=== PATIENT | female | born 1970 | race African-American/Black ===

== ENCOUNTER 2016-12-23 10:06 | Observation (INO) ==
--- NOTE | 2016-12-23 10:55 | Diag Imaging Result Doc PS360 ---
EXAM: ABDOMEN FLAT/UPRIGHT HISTORY: abd pain, SBO TECHNIQUE: Three views COMPARISON: None. FINDINGS: No bowel obstruction. No organomegaly. No abnormal abdominal calcifications. There is a left pelvic calcifications believed to be a phlebolith. Mild to moderate degenerative bone spurring in the lumbar spine. IMPRESSION: No acute abnormality. Electronically signed by Willie Boyd 12/23/2016 10:52 AM
[2016-12-23 11:27] LABS: URINE CULTURE NEEDED? NO; URINE MICRO REVIEW NEEDED? NO; URINE SOURCE CLEAN CATCH
[2016-12-23 11:27] LABS: MANUAL DIFF NEEDED? NO
[2016-12-23 11:31] LABS: BASO% 0.3 % (0.0-0.8); EOS# 0.09 X1000 (0.0-0.7); EOS% 0.9 % (0.0-10.0); HEMATOCRIT 35.4 % (37.0-47.0); HEMOGLOBIN 11.3 g/dL (12.0-16.0); IMM GRAN# 0.03 X1000 (0.0-0.04); IMM GRAN% 0.3 % (0.0-0.5); LYMPH# 1.51 X1000 (1.2-3.4); LYMPH% 15.3 % (20.5-51.1); MCH 28.9 PG (27-31); MCHC 31.9 g/dL (33-37); MCV 90.5 FL (81-99); MONO# 0.86 X1000 (0.11-0.59); MONO% 8.7 % (1.7-9.3); NEUT% 74.5 % (42.2-75.2); PLT 406 X1000 (130-400); RBC 3.91 XMIL (4.2-5.4)
[2016-12-23 11:32] LABS: BILIRUBIN URINE NEGATIVE (NEGATIVE); BLOOD URINE SMALL (NEGATIVE); COLOR YELLOW; GLUCOSE URINE NEGATIVE (NEGATIVE); LEUKOCYTES URINE NEGATIVE (NEGATIVE); NITRITE URINE NEGATIVE (NEGATIVE); PROTEIN URINE NEGATIVE (NEGATIVE); SP GRAVITY URINE 1.004; TURBIDITY URINE CLEAR (CLEAR); UR EPITHELIAL CELLS <10 /HPF (<10); URINE BACTERIA NEGATIVE /HPF; URINE RBC <10 /HPF (<10); URINE WBC <10 /HPF (<10); UROBILINOGEN URINE NORMAL (NORMAL)
[2016-12-23 12:03] LABS: ALBUMIN 3.5 g/dL (3.5-5.0); CALCIUM 9.2 mg/dL (8.8-10.2); POTASSIUM 4.6 mmol/L (3.5-5.1); TOTAL BILIRUBIN 0.59 mg/dL (0.20-1.00); TOTAL PROTEIN 8.1 g/dL (6.3-8.3)
[2016-12-23] MEDS ORDERED: ZOFRAN IV PRN (12:44)
[2016-12-23] MEDS ORDERED: ZOFRAN PO PRN (12:44)
[2016-12-23] MEDS ORDERED: MORPHINE IV PRN (12:44)
[2016-12-23] MEDS ORDERED: D5 1/2 NS 1,000 ML IV SCH (13:00)
[2016-12-23] MEDS ORDERED: GOLYTELY PO ONE (14:00)
--- NOTE | 2016-12-23 14:07 | CONSULTATION ---
DATE OF CONSULTATION: 12/23/2016 HISTORY AND REASON FOR CONSULTATION: Evaluation of this patient with history of colon cancer, severe constipation, abdominal pain, and rectal bleeding. HISTORY OF PRESENT ILLNESS: This is a 46-year-old lady who was found to have colon cancer in October 2014. At that time, she had a sigmoid colectomy done by Dr. Portillo. She also has undergone chemotherapy after the resection because the cancer had spread. This was done by [facility] and the patient had been doing okay after the chemotherapy and surgery. She had a negative colonoscopy done on 07/30/2015. The anastomosis was clear. There was no evidence of any polyp. She was on a schedule of every 2 years colonoscopy; however, about 2 weeks ago she came to the office and said that she has increasing constipation for several months. She also had some left lower quadrant pain and blood in stools. This concerned her, so I scheduled for a colonoscopy for next ; however, since she saw me, she had taken different laxatives to get a bowel movement, which included magnesium citrate, and she could not have a bowel movement. She was drinking liquid diet, but since she did not have a bowel movement, she got really concerned. She continued to have abdominal pain and intermittent rectal bleeding. She then came to the ER and she was evaluated by Dr. Portillo, and she was admitted for further evaluation and management. PAST MEDICAL HISTORY: 1. Patient has a history of morbid obesity. 2. History of colon cancer. ALLERGIES: No known drug allergies. FAMILY HISTORY: There is no history of any colon cancer in the family. She is the only sibling for her family. REVIEW OF SYSTEMS: The appetite has been fair. There is no nausea or vomiting. No difficulty in swallowing. Abdominal pain is mainly in the left and right lower quadrant. Has severe constipation present for about 2 weeks. PHYSICAL EXAMINATION: General: The patient is alert and oriented x3. Vital Signs: The temperature is 98.3 degrees, pulse rate is 85, respiratory rate is 20, blood pressure is 117/78. Weight is 347 and height is 5 feet 2 inches. She is morbidly obese. Skin: Warm and dry. Mucous membranes are moist. Neck: Supple. There is no thyromegaly. Cardiac: Both heart sounds are heard. Rhythm is regular. No murmur. Lungs: Revealed normal breath sounds. A few crackles in the bases. Abdomen: Protuberant. Scar of previous surgery present. No masses felt. There is slight tenderness in the lower abdomen present. Bowel sounds are normally heard. LABORATORY DATA: WBC count is 9.86, hemoglobin 11.3, hematocrit 35.4, and the platelet count is 406,000. Sodium is 142, potassium 4.6, chloride 100, CO2 is 20, BUN is 8, creatinine 1.3. ALT 17, AST is 6, albumin is 3.5, amylase 30, and lipase 11. CEA is 26.8. The UA is negative. Abdominal x-rays, stool only, no obstruction. CT scan is pending. IMPRESSIONS: 1. Severe constipation. 2. Left and right lower quadrant pain. 3. History of colon cancer. RECOMMENDATION: Colonoscopy. I have explained the procedure of colonoscopy, with benefits and risks, in particular the risk of perforation, hemorrhage, and infection. Patient agreed for it. We will proceed with it. I also explained to the patient about monitored anesthesia care. She agreed for it. cc: MD Carlos Steele MD Hugh C. Nabers, MD Mary Odofin MD MTDD
--- NOTE | 2016-12-23 15:13 | Diag Imaging Result Doc PS360 ---
ABDOMEN/PELVIS W/WO CONTRAST - 12/23/2016 INDICATION: ABD PAIN, CONSTIPATION, HX COLON CA TECHNIQUE: A CT dose reduction protocol was used. COMPARISON: 10/16/2014 FINDINGS: On the noncontrast exam, there are no abnormal calcifications. On the contrast enhanced exam, there is a large heterogeneously enhancing mass arising from the fundus of the uterus. This measures about 12.7 x 15 x 15 cm in AP, lateral, and craniocaudal dimensions. There is moderate to severe bilateral hydronephrosis and hydroureter, left greater than right. Presumably this is secondary to obstruction from this large mass. The lung bases are clear and the heart size is normal. Urinary bladder severely displaced anteriorly and superiorly. No bowel obstruction or inflammation. Abdominal organs are all normal. There are a couple of small nodules in the omentum, on both sides of the abdomen. Otherwise, no adenopathy. There are moderate degenerative changes of the spine. No acute or suspicious bony lesion. IMPRESSION: 1. Large diffuse uterine mass that was not present previously. This causes secondary bilateral hydroureteronephrosis left greater than right. The large size and rapid growth is very concerning for a leiomyosarcoma. 2. Small nodular implants in the omentum. This is also concerning. 3. Findings were immediately called to the patient's surgeon. Electronically signed by Mp Pak 12/23/2016 3:11 PM
[2016-12-23] MEDS ORDERED: FLEET ENEMA PR ONE (21:00)
[2016-12-24] MEDS ORDERED: XYLOCAINE-MPF 2% ONE (07:10)
[2016-12-24] MEDS ORDERED: ROBINUL ONE (07:10)
[2016-12-24] MEDS ORDERED: ZOFRAN ONE (07:10)
[2016-12-24] MEDS ORDERED: DIPRIVAN 1% ONE ×2 (07:11→07:12)
[2016-12-24] MEDS ORDERED: FENTANYL ONE (07:14)
[2016-12-24 12:35] VITALS: BP 154/86
--- NOTE | 2016-12-24 13:27 | OPERATIVE NOTE ---
PROCEDURE DATE: 12/24/2016 PROCEDURE: Colonoscopy. HISTORY AND REASON FOR PROCEDURE: This patient is admitted with abdominal pain and severe constipation and some rectal bleeding. Medications were all given by anesthesiologist. Patient was monitored before, during, and after the procedure by them, and her condition remains stable. PHOTOS TAKEN: None. SPECIMEN: None. PROCEDURE IN DETAIL: The patient was kept in the left lateral decubitus position. Rectal examination was performed. The anal canal lubricated. The Olympus video scope was introduced in the rectum and advanced to the cecum. The patient tolerated the procedure well and bowel preparation was fairly good. There was some stool present, which was aspirated and removed and washed off. FINDINGS: The rectum appeared normal without any lesions. Sigmoid was absent. The anastomosis between the rectosigmoid and transverse colon appeared to be wide open with no evidence of any recurrence of any tumor. The transverse colon appeared to be normal with no lesions. The hepatic flexure was normal. Ascending colon was normal. Cecum was identified by the presence of ileocecal valve. There were no lesions present. Air was taken out from the patient's colon and scope was removed from the patient. IMPRESSION: Sigmoid colectomy, otherwise negative colon. RECOMMENDATION: The patient CT scan showed a large mass arising from the uterus. Her CEA is also elevated. She may be having a large tumor in the uterus which could be malignancy. Dr. Portillo was in attendance when I was doing the procedure; he is aware of the patient's negative colonoscopy; he is planning to make arrangement for the patient to be seen by [facility] oncologist, either in [place] or in [facility]. She could be discharged home today. cc: MD Carlos Steele MD Olaoluwa M. Odofin
[2016-12-24] MEDS ORDERED: HEPARIN ONE (13:36)
--- NOTE | 2016-12-26 14:46 | HISTORY AND PHYSICAL ---
DIAGNOSIS: 1. Lower abdominal pain 2. History of colon cancer. PROCEDURE PLANNED: Admission observation. CT scan of the abdomen and pelvis with consultation to Dr. Quiros for colonoscopy tomorrow. HISTORY OF PRESENT ILLNESS: The patient is a 46-year-old black female, known to me from previous colon resection 2-3 years ago for a large bulky tumor in the sigmoid. She had postoperative chemotherapy, had done relatively well since that time. Dr. Quiros scoped the patient approximately a year ago revealing a widely patent anastomosis with no evidence of recurrent tumor. She has been having rectal bleeding recently. PAST HISTORY: Otherwise negative. PHYSICAL EXAMINATION: GENERAL: Physical exam reveals a morbidly obese black female in moderate discomfort. HEAD/NECK EXAM: She is normocephalic, atraumatic. Pupils equal and reactive. Ear, nose, and throat is negative. BREAST AND AXILLARY: Negative. ABDOMEN: Is protuberant with well-healed midline incision. : Negative. NEUROLOGICALLY: Intact. IMPRESSION: Rectal bleeding with history of colon cancer. PLAN: Admission observation with a colonoscopy tomorrow. CT scan reveals a large bulky uterus with possible omental involvement. CEA is elevated at 26. There is a possibility of a primary carcinoma of the uterus and possible omental metastases from the colon cancer. She will have the colonoscopy tomorrow and then be referred for [facility] evaluation for hysterectomy and omentectomy. cc: Raghu Portillo MD
--- NOTE | 2016-12-26 22:51 | PROVIDER DOCUMENTATION ---
This chart was entered by Deonna Gustafson Scribe, acting as scribe for Yariel Wilde MD. HPI-Abdominal Pain/GI Problem - General Chief Complaint: Abdominal Pain Stated Complaint: ABD PAIN,CONSTIPATED Time Seen by Provider: 12/23/16 10:23 Source: patient Allergies/Adverse Reactions: Patient Allergies Allergy/AdvReac Type Severity Reaction Status Date / Time No Known Allergies Allergy Verified 07/28/15 08:27 Home Medications: Home Medication List Medication Instructions Recorded Confirmed Last Taken Type Multivit,Fe,Ca,FA & Min [Thera M 1 each PO DAILY #100 tablet 10/30/14 07/30/15 06/30/15 Rx Plus] 1 Cholecalciferol (Vitamin D3) 2,000 unit PO DAILY 07/28/15 07/30/15 06/30/15 History [Vitamin D] 2000 Warfarin [Coumadin] mg PO QHS 07/28/15 07/28/15 07/07/15 History - History of Present Illness-ABD Nature of Presenting Problems: Pt is 46 y/o F presents to the ED with generalized abdominal pain. Pt states pain has been present for one week. Pt denies having a normal BM in one week. Pt states drinking mag citrate and at home enema. Pt states hx of colon resection due to blockage. Pt states hx of colon cancer. Pt denies taking pain meds. Pt states she is passing some gas. Pt denies SOB, back pain or chest pain. Abdominal Pain Onset Location: reports: generalized abdomen Pain Radiation: reports: no radiation Quality of Pain: reports: aching Severity in ED: reports: moderate Onset/Duration: reports: 1 week ago Timing: reports: still present, getting worse Activities at Onset: reports: light activity Exposure to sick contacts?: No Modifying Factors: improves with: nothing Associated Symptoms: reports: headaches. denies: anxiety, arm pain, back/neck pain, chest pain, constipation, cough, diaphoresis, diarrhea, dizziness, EENT symptoms, fatigue, fever/chills, genitourinary problems, heartburn, joint pain, loss of appetite, malaise, muscle aches, sinus congestion/drainage, nausea, rash , seizure, shortness of breath, sensory/motor loss, pain with inspiration, swelling/mass in abdomen, syncope, vomiting, weakness, trouble walking Last BM: 1 week ago Dark Stools Present?: reports: none noticed Rectal Bleeding: reports: none Rectal Pain: reports: none Emesis Description: reports: none Bruising or Bleeding Gums?: No Similar Symptoms Previously?: Yes Recently seen or treated by another doctor?: No Review of Systems - Adult - REVIEW OF SYSTEMS - ADULT Constitutional: reports: no symptoms reported Eyes: reports: no symptoms reported Ears, Nose, Mouth & Throat: reports: no symptoms reported Cardiovascular: reports: no symptoms reported Respiratory: reports: no symptoms reported Gastrointestinal: reports: abdominal pain, constipation. denies: diarrhea, nausea, poor appetite, rectal bleeding, vomiting Genitourinary: reports: no symptoms reported Musculoskeletal: reports: no symptoms reported Integumentary: reports: no symptoms reported Neurological: reports: no symptoms reported Psychiatric: reports: no symptoms reported Endocrine: reports: no symptoms reported Hematologic/Lymphatic: reports: no symptoms reported Allergic/Immunologic: reports: no symptoms reported All Other Systems: Reviewed and Negative Past History - Adult - PAST MEDICAL HISTORY-ADULT Review of Records: reports: Nursing Assessment Review, Medications Reviewed, Social history reviewed & non-contributory. Major Childhood Illnesses: reports: denies history Cardiovascular: reports: HTN Respiratory: reports: denies history Gastrointestinal: reports: cancer (colon) Obstetrical/Gynecological: reports: denies history Genitourinary: reports: denies history Musculoskeletal: reports: denies history Neurological: reports: denies history Endocrine/Immune: reports: denies history Other Conditions: reports: denies history - PRIOR SURGERIES/PROCEDURES Surgical/Procedure History: reports: other (colon resection) - IMMUNIZATION STATUS Childhood Immunizations: See Nurse Assessment Flu Vaccine: See Nurse Assessment - FAMILY HISTORY Family History: reviewed, not pertinent - SOCIAL HISTORY Smoking: denies Substance Use: alcohol Alcohol Use Frequency: occasionally Number of drinks per typical drinking period:: 2 drinks Living Situation: family Physical Exam-General - PHYSICAL EXAM-ADULT Initial Vital Signs Reviewed: Yes - CONSTITUTIONAL General Appearance: appears well, alert, mild distress - EYES Eyes: PERRL/EOMI, pink conjunctivae - HEAD, EARS, NOSE, MOUTH & THROAT HENMT: normocephalic/atraumatic, moist mucous membranes, normal ENT inspection - NECK Neck: non-tender, full range of motion, supple, normal inspection - RESPIRATORY Respiratory: chest non-tender, lungs clear, normal breath sounds - CARDIOVASCULAR Cardiovascular: normal peripheral pulses, tachycardia - GASTROINTESTINAL (ABDOMEN) Abdominal Exam: soft, abnormal bowel sounds (no bowel sounds), tenderness ( generalized). negative: normal bowel sounds - LYMPHATIC Lymphatic: no adenopathy - MUSCULOSKELETAL Back Exam: normal inspection, no CVA tenderness, no vertebral tenderness Extremity: normal range of motion, non-tender, normal inspection, swelling (1 + pitting edema bilateral) - SKIN Integumentary: normal color, normal turgor, warm/dry - NEUROLOGIC Neurologic: grossly normal - PSYCHIATRIC Psych/Mental Status: normal mood/affect, oriented x 3 Progress - PLAN OF CARE/RESULTS Progress/Plan/Lab Results: Vital Signs - 8 hr 12/23/16 10:12 Temperature 98.6 F Pulse Rate 122 H Respiratory Rate 20 Blood Pressure 154/95 O2 Sat by Pulse Oximetry 100 Orders Category Date Time Status Saline Loc DIRECTED Care 12/23/16 10:31 Active NPO Diet 12/23/16 10:31 Active ABDOMEN FLAT/UPRIGHT [RAD] Stat Exams 12/23/16 10:31 Ordered AMYLASE [CHEM] Stat Lab 12/23/16 10:31 Uncollected CBC WITH ELECTRONIC DIFF [HEME] Stat Lab 12/23/16 10:31 Uncollected COMPREHENSIVE METABOLIC PANEL [CHEM] Stat Lab 12/23/16 10:31 Uncollected LIPASE [CHEM] Stat Lab 12/23/16 10:31 Uncollected URINALYSIS W/POSS RFLX CULT-1 [URINALYSIS] Stat Lab 12/23/16 10:[address] Portillo came by and said he was going to put her in and scan her. Asked for CEA. - XRAY 1 XRAY Study: Abdomen Impression: Normal XRAY Interpretation: no acute abnormality - CONSULTS/PCP/HOSPITALIST Notification #1 *Consult/PCP/Hospitalist*: Bandar Time Discussed: 11:13 Consult Disposition: Admit Departure - Departure Date of Disposition Decision: 12/23/16 Time of Disposition Decision: 11:14 DIAGNOSIS: Personal history of colon cancer Abdominal pain Qualifiers: Abdominal location: generalized Qualified Code(s): R10.84 - Generalized abdominal pain Disposition: ADMITTED INPATIENT 09 Certified Medical Emergency: Emergent Condition: Stable Referrals and Follow-Ups: SHAY AUGUSTIN [Primary Care Provider] - - Critical Care Note This patient required my direct & personal management of CC.: No This chart was documented by the indicated scribe, (Deonna Gustafson Scribe) and accurately reflects the services I performed and decisions made by me, Yariel Wilde MD, as attested by the provider's signature.
== END 2016-12-24 14:36 | disposition home or self-care (01) ==
LOC: ED 10:06 → INTOOBSV 10:07 → 4N 10:07
PROVIDERS: ADMIT Surgery; ATTEND Surgery

== ENCOUNTER 2017-01-26 09:08 | Inpatient (IN) ==
[2017-01-26] MEDS ORDERED: ZOFRAN PO PRN (10:36)
[2017-01-26] MEDS ORDERED: ZOFRAN IV PRN (10:36)
[2017-01-26] MEDS ORDERED: RESTORIL PO PRN (10:37)
[2017-01-26] MEDS: HYDROCHLOROTHIAZIDE PO SCH (11:52)
[2017-01-26] MEDS: DIOVAN PO SCH (11:52)
--- NOTE | 2017-01-26 21:08 | CONSULTATION ---
DATE OF CONSULTATION: 01/26/2017 ATTENDING AND REFERRING PHYSICIAN: Carlos Hudson MD HISTORY OF PRESENT ILLNESS: This 46-year-old female with history of colon cancer had a CT scan on 23 December that revealed a large pelvic mass with bilateral hydroureteronephrosis, left side worse than right. The patient is being admitted for CT-guided needle biopsy of the pelvic mass. The patient denies any flank pains. She has no history of kidney stones. She denies problems with urinary tract infections. She has had no previous urologic surgery. PAST MEDICAL HISTORY: Obesity. Diverticular disease. Colon cancer. Hypertension. CURRENT MEDICATIONS: Documented on the chart. PAST SURGICAL HISTORY: Sigmoid colectomy. SOCIAL HISTORY: No tobacco or alcohol use. ALLERGIES: She is allergic to iron. She denies any problems with heart disease, diabetes, pulmonary problems. She states she did have some rectal bleeding and underwent colonoscopy less than a month ago. She states she was told the colonoscopy showed no evidence of disease recurrence. She also had an esophagogastroduodenoscopy at that time. PHYSICAL EXAMINATION: General: An obese, age apparent, normally developed, black female, oriented in all ways and cooperative. HEENT: Normal for age. Lungs: Clear. Cardiovascular: Regular rate and rhythm. Abdomen: Markedly obese, soft, nontender. No hepatosplenomegaly or masses. Normal bowel sounds. : Deferred until surgery. Extremities: No clubbing, cyanosis, or edema. Neurologic: No focal deficits. LABORATORY: Laboratory evaluation that was drawn at her doctor's office today had a BUN of 8 and a creatinine of 1.25. CT scan is as noted in the HPI. IMPRESSION: 1. Pelvic mass. 2. Bilateral hydroureteronephrosis. RECOMMENDATIONS: Cystoscopic exam with bilateral retrograde ureteral pyelograms and placement of bilateral double-J stents if able. The planned procedure, benefits versus risks, and possible complications, including, but not limited to bleeding, infection, not being able to place the stents, need for further procedures was discussed. She seems to understand and desires to proceed. cc: MD Carlos Johnson MD
[2017-01-27 07:55] LABS: INR 1.08; PROTIME 11.4 Seconds (9.2-11.7); PTT 28.2 Seconds (22.0-36.0)
[2017-01-27] MEDS: DIOVAN PO SCH (15:02)
[2017-01-27] MEDS: HYDROCHLOROTHIAZIDE PO SCH (15:03)
[2017-01-27] MEDS ORDERED: KEFZOL 2 GM/D5W 2 GM/50 ML IVPB ONE (16:39)
[2017-01-27] MEDS ORDERED: DIPRIVAN 1% ONE (16:42)
[2017-01-27] MEDS ORDERED: NEOSPORIN G.U. IRRIGANT ONE (16:43)
[2017-01-27] MEDS ORDERED: QUELICIN (DOSE) ONE (16:45)
[2017-01-27] MEDS ORDERED: XYLOCAINE-MPF 2% ONE (16:45)
[2017-01-27] MEDS ORDERED: FENTANYL ONE (16:46)
[2017-01-27] MEDS ORDERED: NEO-SYNEPHRINE ONE (17:09)
--- NOTE | 2017-01-27 18:39 | OPERATIVE NOTE ---
PROCEDURE DATE: 01/27/2017 SURGEON: Cristhian Bob MD. PREOPERATIVE DIAGNOSIS: Bilateral hydroureteronephrosis with large pelvic mass. POSTOPERATIVE DIAGNOSIS: Bilateral hydroureteronephrosis with large pelvic mass. PROCEDURE PERFORMED: 1. Cystoscopic exam. 2. Bilateral retrograde ureteral pyelograms. 3. Place bilateral double-J stents. ANESTHESIA: General endotracheal. FINDINGS: Cystoscopic exam: Urethra - greater than 21 Greenlandic without stricture. The bladder had a very large extrinsic mass pushing the bladder up towards the anterior abdominal wall. The cystoscope had to be pointed to the ceiling it to be able to get over this mass. There were no papillary lesions, trabeculations, or diverticula noted. An 8-Greenlandic cone-tipped catheter was passed through the cystoscope, engaged the left ureteral orifice, contrast was injected. The ureter was very tortuous with significant hydronephrosis. No filling defects noted. Both sides were accomplished similarly and both sides had similar findings. No filling defects on either side. exam revealed atrophic vaginal mucosa. A very hard mass in the pelvis palpated through the vaginal cavity. INDICATION FOR PROCEDURE: This 46-year-old female has a known large pelvic mass. A CT scan revealed bilateral hydroureteronephrosis. DESCRIPTION OF PROCEDURE: After informed consent was obtained from the patient and her receiving IV antibiotics, she was taken to the main OR cystoscopy room and placed in the low lithotomy position. A 21-Greenlandic cystoscope was passed through the patient's urethra and bladder findings noted above. An 8-Greenlandic cone-tipped catheter was passed through the cystoscope, engaged the left ureteral orifice, and contrast injected. Right side was accomplished similarly. A wire could not be passed into the ureteral orifice because of its angle. A 5-Greenlandic open-ended ureteral catheter was passed through the cystoscope and finally engaged the left ureteral orifice. The wire was advanced up to the kidney. The open-ended catheter was removed and a 6-Greenlandic, 24 cm double-J stent was passed over the zip wire and up into the kidney. The renal end was verified by fluoroscopic exam, the bladder end directly visualized. Stent removal string was removed. The right side was accomplished similarly. Again, a 6-Greenlandic, 24 cm double-J stent was removed. Because of the significant efflux that came out of each ureteral orifice after the stents were placed, an 18-Greenlandic Gonzalez catheter was placed. Ten milliliters of sterile water were placed in a Gonzalez's balloon. It should be able to be removed tomorrow. exam was performed. She tolerated the procedure well. Estimated blood loss zero. She was taken to recovery room in good condition. cc: MD Carlos Johnson MD
[2017-01-27] MEDS: DITROPAN PO PRN (21:28)
[2017-01-27] MEDS: NORCO-5 PO PRN (21:28)
[2017-01-28] MEDS: NORCO-5 PO PRN (04:03)
[2017-01-28 08:35] VITALS: BP 139/71
[2017-01-28] MEDS: DIOVAN PO SCH (09:58)
[2017-01-28] MEDS: DITROPAN PO PRN (09:58)
[2017-01-28] MEDS: HYDROCHLOROTHIAZIDE PO SCH (09:59)
--- NOTE | 2017-01-30 07:48 | Diag Imaging Result Doc PS360 ---
EXAM: RETROGRADES 2 OR 3 FILMS HISTORY: PELVIC MASS, BILATERAL STENT PLACEMENT TECHNIQUE: COMPARISON: None. FINDINGS: Early film shows retrograde filling of the left ureter. No obstruction to retrograde flow. The mid ureter is poorly opacified. A wire was placed in the ureter. The upper ureter is dilated as are the calyces. A catheter was placed over the wire and a ureteral stent was placed. Later films show retrograde filling of the right ureter. No obstruction to retrograde flow. A wire was placed within the ureter. A catheter was placed with repositioning and the wire was removed. IMPRESSION: Bilateral retrogrades with bilateral ureteral stents placed Electronically signed by Willie Boyd 01/30/2017 7:46 AM
== END 2017-01-28 11:59 | disposition home or self-care (01) ==
LOC: DIRADM → OBSVTOIN 09:08 → 3N 10:00
PROVIDERS: ADMIT Internal Medicine Hematology & Oncology; ATTEND Internal Medicine Hematology & Oncology

== ENCOUNTER 2018-12-11 03:50 | Inpatient (IN) ==
[2018-12-11] MEDS ORDERED: DILAUDID IV ONE (04:21)
[2018-12-11] MEDS ORDERED: ZOFRAN IV ONE (04:21)
--- NOTE | 2018-12-11 04:26 | PROVIDER DOCUMENTATION ---
HPI-Abdominal Pain/GI Problem - General Chief Complaint: Abdominal Pain Stated Complaint: ABD/KIDNEY PAIN Time Seen by Provider: 12/11/18 04:08 Allergies/Adverse Reactions: Patient Allergies Allergy/AdvReac Type Severity Reaction Status Date / Time iron dextran complex Allergy Mild ITCHING Verified 10/09/18 08:57 [From Infed] adhesive tape Allergy Unknown ITCHING Verified 10/09/18 08:57 oxaliplatin AdvReac RASH Verified 11/28/18 14:52 Home Medications: Home Medication List Medication Instructions Recorded Confirmed Last Taken Type Ondansetron HCl [Zofran] 8 mg PO Q8-12H PRN PRN 11/12/18 11/28/18 11/25/18 History - History of Present Illness-ABD Nature of Presenting Problems: patient complains of suprapubic pain and pressure, worse with urination. States she was recently treated for a uti. She has had ureteral stents since august. She also states that she has been receiving chemo and radiation for colon Ca. Denies vomiting or diarrhea. Abdominal Pain Onset Location: reports: suprapubic Pain Radiation: reports: no radiation Review of Systems - Adult - REVIEW OF SYSTEMS - ADULT Constitutional: reports: no symptoms reported Eyes: reports: no symptoms reported Ears, Nose, Mouth & Throat: reports: no symptoms reported Cardiovascular: reports: no symptoms reported Respiratory: reports: no symptoms reported Gastrointestinal: reports: see HPI Genitourinary: reports: see HPI Musculoskeletal: reports: no symptoms reported Integumentary: reports: no symptoms reported Neurological: reports: no symptoms reported Psychiatric: reports: no symptoms reported Endocrine: reports: no symptoms reported Hematologic/Lymphatic: reports: no symptoms reported Allergic/Immunologic: reports: no symptoms reported Past History - Adult - PAST MEDICAL HISTORY-ADULT Review of Records: reports: Old Records Reviewed Major Childhood Illnesses: reports: denies history Cardiovascular: reports: HTN Respiratory: reports: denies history Gastrointestinal: reports: cancer (colon) Obstetrical/Gynecological: reports: denies history Genitourinary: reports: denies history Musculoskeletal: reports: denies history Neurological: reports: denies history Endocrine/Immune: reports: denies history Other Conditions: reports: denies history - PRIOR SURGERIES/PROCEDURES Surgical/Procedure History: reports: other (colon resection) - IMMUNIZATION STATUS Childhood Immunizations: See Nurse Assessment Flu Vaccine: See Nurse Assessment - FAMILY HISTORY Family History: reviewed, not pertinent Physical Exam-General - PHYSICAL EXAM-ADULT Initial Vital Signs Reviewed: Yes - CONSTITUTIONAL General Appearance: mild distress - EYES Eyes: PERRL/EOMI, pink conjunctivae. negative: scleral icterus - HEAD, EARS, NOSE, MOUTH & THROAT HENMT: normocephalic/atraumatic, moist mucous membranes - NECK Neck: non-tender, full range of motion - RESPIRATORY Respiratory: chest non-tender, lungs clear, normal breath sounds - CARDIOVASCULAR Cardiovascular: normal peripheral pulses, regular rate, rhythm - GASTROINTESTINAL (ABDOMEN) Abdominal Exam: normal bowel sounds, non tender, soft - LYMPHATIC Lymphatic: no adenopathy - MUSCULOSKELETAL Back Exam: normal inspection, no CVA tenderness, no vertebral tenderness Extremity: normal range of motion, non-tender, normal gait Progress - PLAN OF CARE/RESULTS Progress/Plan/Lab Results: Vital Signs - 8 hr 12/11/18 03:54 Temperature 97.9 F Pulse Rate 102 H Respiratory Rate 18 Blood Pressure 112/75 O2 Sat by Pulse Oximetry 100 Orders Category Date Time Status CT ABDOMEN/PELVIS W/O CONTRAST [CT] Stat Exams 12/11/18 04:20 Ordered CBC WITH ELECTRONIC DIFF [HEME] Stat Lab 12/11/18 04:20 Uncollected COMPREHENSIVE METABOLIC PANEL [CHEM] Stat Lab 12/11/18 04:20 Uncollected LACTATE, PLASMA [CHEM] Stat Lab 12/11/18 04:20 Uncollected URINALYSIS W/POSS RFLX CULT [URINALYSIS] Stat Lab 12/11/18 04:20 Uncollected Hydromorphone [Dilaudid] Med 12/11/18 04:21 Discontinued 1 mg IV NOW ONE Ondansetron [Zofran] Med 12/11/18 04:21 Discontinued 4 mg IV NOW ONE Departure - Departure Date of Disposition Decision: 12/11/18 Time of Disposition Decision: 04:43 DIAGNOSIS: Flank pain, Dehydration Disposition: HOME 01 Certified Medical Emergency: Emergent Condition: Good Referrals and Follow-Ups: SHAY AUGUSTIN [Primary Care Provider] - Discharge Education: Dehydration, Adult, Adiv-by-Xurd - Critical Care Note This patient required my direct & personal management of CC.: No Attestation - Physician/ TACOS Attestation Patient care was provided by Advanced Practice Provider:: No The physician spent face to face time with patient:: Yes Advanced Practice Provider documentation review:: Supervising physician onsite and consulted in the evaluation and care of this patient. The physician did have a face to face encounter with the patient.
[2018-12-11 05:09] LABS: BASO# 0.01 X1000 (0.0-0.2); BASO% 0.1 % (0.0-0.8); EOS# 0.09 X1000 (0.0-0.7); EOS% 1.2 % (0.0-10.0); HEMATOCRIT 35.3 % (37.0-47.0); HEMOGLOBIN 11.6 g/dL (12.0-16.0); IMM GRAN# 0.03 X1000 (0.0-0.04); IMM GRAN% 0.4 % (0.0-0.5); LYMPH# 0.44 X1000 (1.2-3.4); LYMPH% 6.1 % (20.5-51.1); MCHC 32.9 g/dL (33-37); MCV 88.3 FL (81-99); MONO# 1.02 X1000 (0.11-0.59); MONO% 14.1 % (1.7-9.3); MPV 9.6 FL (7.4-10.4); NEUT# 5.66 X1000 (1.4-6.5); NEUT% 78.1 % (42.2-75.2); PLT 220 X1000 (130-400); RDW 15.3 % (11.5-14.5); WBC 7.25 X1000 (4.8-10.8)
[2018-12-11 05:53] LABS: AGAP 18; ALB/GLOB RATIO 0.8; ALBUMIN 3.9 g/dL (3.5-5.0); ALKALINE PHOSPHATASE 95 U/L (32-104); BUN 19 mg/dL (8-22); CALCIUM 10.3 mg/dL (8.8-10.2); CHLORIDE 91 mmol/L (98-107); COSMO 270; CREATININE 2.7 mg/dL (0.5-0.9); ESTIMATED GFR 23; GLUCOSE 117 mg/dL (70-104); GOT 15 U/L (10-30); GPT < 5 U/L (10-36); POTASSIUM 3.8 mmol/L (3.5-5.1); SODIUM 133 mmol/L (136-145); TCO2 24 mmol/L (25-35); TOTAL BILIRUBIN 0.53 mg/dL (0.20-1.00); TOTAL PROTEIN 9.1 g/dL (6.3-8.3)
[2018-12-11 06:03] LABS: URINE BACTERIA 1+ /HFP; URINE CAST NONE SEEN /LPF; URINE CRYSTAL NONE SEEN /HPF; URINE EPITHELIAL CELLS <10 /HPF (<10); URINE SOURCE CLEAN CATCH; URINE WBC 20-40 /HPF (<10); URINE YEAST NONE SEEN /HPF
[2018-12-11 06:04] LABS: BILIRUBIN URINE SMALL (NEGATIVE); BLOOD URINE LARGE (NEGATIVE); CLARITY SLIGHTLY CLOUDY (CLEAR); COLOR YELLOW; GLUCOSE URINE 100 mg/dL (NEGATIVE); KETONE URINE TRACE mg/dL (NEGATIVE); LEUKOCYTES URINE LARGE (NEGATIVE); NITRITE URINE POSITIVE (NEGATIVE); PH URINE 6.5; PROTEIN URINE >=300 mg/dL (NEGATIVE)
[2018-12-11] MEDS ORDERED: NS 1,000 ML IV ONE (08:58)
[2018-12-11] MEDS: NS 1,000 ML IV SCH ×2 (09:00→22:20)
[2018-12-11] MEDS ORDERED: AMPICILLIN 1 GM/NS 1 GM/50 ML IVPB IV SCH (09:00)
--- NOTE | 2018-12-11 09:07 | Diag Imaging Result Doc PS360 ---
EXAM: CT ABDOMEN/PELVIS W/O CONTRAST - 12/11/2018 HISTORY: abd pain, ureteral stents TECHNIQUE: CT abdomen/pelvis without contrast. No contrast administered per request the referring provider. COMPARISON: 02/04/2017 FINDINGS: There is some limitation of detail due to the lack of administered contrast. The visualized lung bases are clear. There are no substantial abnormalities of the liver, spleen, adrenal glands, or pancreas identified. There are no calcified gallstones or pericholecystic inflammation identified. There is a very large mass which extends from the pelvis to the midabdomen. The mass has increased substantially in size compared to the prior exam. The mass measures up to approximately 16 cm in AP dimension by 24 cm in transverse dimension by 20 cm in superior inferior dimension. The mass has heterogeneous attenuation with solid areas and cystic or necrotic areas. There are some calcifications in the right superior portion of the mass. There is been interval placement of bilateral ureteral stents. The right ureteral stent extends from the upper upper right renal collecting system to the urinary bladder. There is no substantial right hydronephrosis. There is apparent duplicated upper renal collecting system on the left. The left ureteral stent extends from the left lower moiety to the urinary bladder, with no substantial hydronephrosis of the left lower pole moiety. There is persistent or recurrent substantial hydronephrosis of the left upper pole moiety. There is displacement of bowel by the large mass, but is no evidence of bowel obstruction. There is some retained fluid in small bowel and colon which may relate to mild enterocolitis. There is no abscess identified. There is no free air identified. IMPRESSION: Very large heterogeneous mass which extends from the pelvis to the midabdomen, and has increased in size compared to 02/04/2017. Right ureteral stent present, with no substantial right hydronephrosis. 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 Left ureter stent present extending to the left lower moiety, with no substantial lower moiety hydronephrosis. There is substantial hydronephrosis of the left upper moiety. Some retained fluid in small bowel and colon which may relate to mild enterocolitis. No evidence of bowel obstruction. No abscess. No free air. The ecological economist radiologist provided preliminary results at 5:38 AM on 12/11/2018. This exam was performed using automated exposure control, adjustment of mA or kV according to patient size, and/or use of iterative reconstruction technique. Electronically signed by Earnest Ramirez 12/11/2018 9:05 AM
[2018-12-11] MEDS ORDERED: B & O 15A SUPP PR PRN (09:48)
[2018-12-11] MEDS ORDERED: AMPICILLIN 1 GM/NS 1 GM/50 ML IVPB IV ONE (10:00)
[2018-12-11 10:15] LABS: BASO# 0.01 X1000 (0.0-0.2); BASO% 0.1 % (0.0-0.8); EOS# 0.05 X1000 (0.0-0.7); EOS% 0.6 % (0.0-10.0); HEMATOCRIT 34.6 % (37.0-47.0); IMM GRAN# 0.06 X1000 (0.0-0.04); IMM GRAN% 0.7 % (0.0-0.5); LYMPH# 0.64 X1000 (1.2-3.4); LYMPH% 7.7 % (20.5-51.1); MCH 28.4 PG (27-31); MCHC 31.8 g/dL (33-37); MCV 89.2 FL (81-99); MONO# 0.87 X1000 (0.11-0.59); MONO% 10.4 % (1.7-9.3); NEUT# 6.73 X1000 (1.4-6.5); NEUT% 80.5 % (42.2-75.2); PLT 179 X1000 (130-400); RBC 3.88 XMIL (4.2-5.4); RDW 15.5 % (11.5-14.5); WBC 8.36 X1000 (4.8-10.8)
[2018-12-11 10:51] LABS: AGAP 18; ALB/GLOB RATIO 0.7; ALBUMIN 3.7 g/dL (3.5-5.0); ALKALINE PHOSPHATASE 81 U/L (32-104); BUN 21 mg/dL (8-22); CALCIUM 9.3 mg/dL (8.8-10.2); CHLORIDE 92 mmol/L (98-107); COSMO 276; CREATININE 2.8 mg/dL (0.5-0.9); ESTIMATED GFR 22; GLUCOSE 123 mg/dL (70-104); GOT 14 U/L (10-30); GPT < 5 U/L (10-36); POTASSIUM 3.6 mmol/L (3.5-5.1); SODIUM 136 mmol/L (136-145); TCO2 26 mmol/L (25-35); TOTAL PROTEIN 8.9 g/dL (6.3-8.3)
--- NOTE | 2018-12-11 14:45 | HISTORY AND PHYSICAL ---
CHIEF COMPLAINT: Abdominal pain. HISTORY OF PRESENT ILLNESS: This is a 48-year-old female with a history of colon cancer, hypertension with chronic bilateral JJ stents, who presents to the emergency room complaining of suprapubic pain and pressure with frequency and urgency. She has a history of recurrent colon cancer resulting in a large pelvic mass that caused bilateral hydroureteronephrosis. She is currently receiving chemotherapy under Dr. Hudson, radiation with Eric Duong. She denies any hematuria, any fevers or chills. PAST MEDICAL HISTORY: 1. Recurrent colon cancer. 2. Hypertension. 3. Chronic bilateral JJ stents secondary to compression from pelvic mass. PAST SURGICAL HISTORY: Colon resection, pelvic mass biopsy, cystoscopic exam with stent exchanges multiple times. SOCIAL HISTORY: She denies any alcohol, tobacco or illicit drug use. She has a father and an aunt that are very active in her care. ALLERGIES: No known drug allergies. HOME MEDICATIONS: A list will be obtained by the nursing staff and once verified, will review and restart as is appropriate. REVIEW OF SYSTEMS: Discussed with patient with pertinent positives stated in the HPI. She denied any syncope, dizziness, chest pain, palpitations, any fevers, chills, recent weight loss or weight gain, any night sweats, any nausea, vomiting, diarrhea, constipation, any black or bloody vomitus or stools, any hematuria. PHYSICAL EXAMINATION: GENERAL: This is a 48-year-old female who is lying in the bed in the emergency room in no distress. VITAL SIGNS: Blood pressure is 111/78 with a heart rate of 106, respirations are 20, temperature is 97.9. EYES: Pupils are equal, round, react to light. EOMs are intact. Sclerae are anicteric. HEENT: Head is normocephalic, atraumatic. Mucous membranes are dry. NECK: Supple, with trachea midline. CARDIOVASCULAR: Regular rate and rhythm. S1 and S2 are appreciated. She has no lower extremity edema. Calves are nontender bilaterally with peripheral pulses palpable x 4 extremities. PULMONARY: Breath sounds are clear with no increased work of breathing noted. Chest rises and falls symmetrically with respiration. Chest wall is nontender to palpation. GASTROINTESTINAL: Abdomen is distended. It is tender to palpation in the suprapubic and umbilical region, with bowel sounds in all 4 quadrants. GENITOURINARY: She has no CVAT. Bladder is palpable to two finger breaths below the umbilicus. NEUROLOGIC: She is alert oriented x 3. SKIN: Warm and dry. LABS: WBC is 8.3 with hemoglobin 11.6, hematocrit 35.3 and platelets of 220,000. Sodium 133, potassium 3.8, BUN 19, creatinine 2.7 with a glucose of 117, calcium is 10.3. Lactate was 3 at 4:30 and at 5:30 is 1.7. Urinalysis is positive for nitrites with a large amount of blood, small bilirubin, 10 to 20 microscopic red blood cells, 20 to 40 microscopic white blood cells, less than 10 epithelial cells. This is a clean-catch specimen. Urine culture is pending. CT of the abdomen and pelvis reveals a very large heterogeneous mass which extends from the pelvis to the mid abdomen and has increased in size compared to January 2017. Right ureteral stent is present with no substantial right hydronephrosis. 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 There is substantial hydronephrosis in the left upper moiety. No evidence of bowel obstruction. No abscess. No free air. ASSESSMENT AND PLAN: 1. Abdominal pain. We will give Dilaudid p.r.n. for pain. 2. Urinary retention. Will bladder scan the patient and if she has greater than 200 mL of urine a Gonzalez will be placed. 3. Recent urinary tract infection. On 10/16/2018 she had Enterococcus faecalis that was ampicillin susceptible. Will preemptively start ampicillin and any further antibiotics will be culture driven. 4. Acute kidney injury. This is very likely postobstructive as she did have a bladder scan greater than 500 mL. Gonzalez catheter is being placed at this time. We will give a liter bolus, continue with gentle hydration and recheck labs this afternoon and in the morning. If creatinine does not decrease, we will consult Nephrology. 5. Hypertension. Will trend vital signs and start medications if appropriate. 6. Colon cancer. The patient is currently receiving chemotherapy under the guidance of Dr. Hudson. We will consult Dr. Hudson as patient is established and receiving chemotherapy. In fact, she is due chemotherapy today. Preliminary scan reveals enlarging mass. Will consult Dr. Fabian as he has done surgery on the patient in the past. 7. Bladder spasms. Will give B O suppositories q.6 hours p.r.n. 8. Further treatments pending hospital course. Dictated by DENA Washburn for Raúl Gruber MD Addendum: Patient seen and examined by myself. Agree with DENA note. It reflects my assessment and plan. Patient is being admitted to hospital for UTI and for abdominal mass. Will consult Oncology and General surgery and will go from there. I am not quite sure this mass is getting larger or not. Will see what both subspecialists have to say. cc: DENA Washburn MD [facility]
[2018-12-11] MEDS: DILAUDID IV PRN ×2 (16:38→23:40)
[2018-12-11] MEDS: ZOFRAN IV PRN (16:39)
--- NOTE | 2018-12-11 16:56 | HEMO/ONC CONSULTATION ---
DATE: 12/11/2018 REQUESTING PHYSICIAN: DENA Ferrara. REASON FOR CONSULTATION: History of metastatic adenocarcinoma. The patient is known to us. HPI: Ms Lovett is a very pleasant 48-year-old female with history of recurrent metastatic adenocarcinoma, KRAS mutated, who is well known to Dr. Hudson. She is currently on therapy with FOLFIRINOX 6 and Avastin, with her last cycle being on 11/28/2018. This was cycle #2. She presented to [facility] today with complaints of lower abdominal pain. It is noted that she was recently treated by us in the clinic for a urinary tract infection with Bactrim. She completed a 7-day course. Urinalysis in the hospital revealed a large amount of blood, positive nitrites and large white blood cells. Of note, in October 2018 she had enterococcus facialis that was ampicillin susceptible. She has now been started on ampicillin for urinary tract infection. Lab work additionally indicated acute kidney injury with a creatinine of 2.8. She has been initiated on IV hydration. She was found to have urinary retention also upon presentation and a Gonzalez catheter has been placed. Noted, she does also have a history of bilateral hydronephrosis secondary to the large pelvic mass and underwent stent exchange with Dr. Goddard in August 2018. CT of the abdomen and pelvis performed in the ER revealed no substantial right hydronephrosis with persistent or recurrent substantial hydronephrosis of the left upper pole moiety. Also noted was the very large heterogeneous mass which extends from the pelvis to the midabdomen measuring 16 cm x 24 cm x 20 cm. This was compared to most recent CT scan in the clinic dated 10/08/2018, where the pelvic mass measured 24.5 x 16.8 x 20.9 cm. We have been asked to evaluate as the patient is well known to us. PAST MEDICAL HISTORY: 1. Recurrent metastatic adenocarcinoma KRAS mutated. 2. Bilateral hydronephrosis. 3. Recurrent urinary tract infections. 4. Chemotherapy-induced anemia. 5. External hemorrhoids with occasional bright red blood per rectum. 6. Thrombocytosis. 7. Iron deficiency anemia. 8. Hypertension. PAST SURGICAL HISTORY: 1. Double-J stent placement with Dr. Goddard most recently August 2018. 2. Colon resection. 3. Port placement. SOCIAL HISTORY: Denies any tobacco or illicit drug use. She does note social alcohol use prior to initiation of chemotherapy but has had none since. She has a very supportive family. FAMILY HISTORY: No known malignancies. ALLERGIES: 1. NSAID. 2. Tape. HOME MEDICATIONS: Currently awaiting to be reconciled. Please see home medication reconciliation list once reconciled. REVIEW OF SYSTEMS: Positive for lower abdominal pain, dysuria, frequency, burning upon urination as well as constipation with occasional bright red blood per rectum. She additionally notes that after taking laxative for constipation she actually developed diarrhea. Otherwise, a 12 point review of systems reviewed and negative except as mentioned above. PHYSICAL EXAMINATION: Vital Signs: Temperature 97.9 degrees, respirations 18, pulse 118, blood pressure 126/87, O2 saturation 100% on room air. General: This is a pleasant female in no apparent distress. She is accompanied by two family members. HEENT: Pupils equal, round. No jaundice noted. She does have evidence of what appears to be a busted blood vessel to the left eye. Mouth, oral mucosa normal. CV: Regular rate, rhythm S1, S2. Pulmonary: Lung sounds clear to auscultation bilaterally, nonlabored. Abdomen: Distended. There is a palpable mass predominantly in the right midabdomen. Tender to palpation in the left and right lower quadrant. Bowel sounds present x4 quadrants. Extremities: No cyanosis, clubbing, or edema. : Gonzalez catheter in place draining kaelyn urine. Neurologic: Awake, alert, oriented to person, place, time. No focal motor deficit. Normal gait. Psych: Calm and cooperative. LABORATORY DATA: White blood cell count 8.36, hemoglobin 11.0, hematocrit 34.6, platelets 179,000. Sodium 136, potassium 3.6, chloride 92, CO2 26, BUN 21, creatinine 2.8, glucose 123, calcium 9.3. IMAGING: CT abdomen and pelvis from 12/11/2018 impression, very large heterogeneous mass which extends from the pelvis to the midabdomen has increased in size compared to 02/04/2017. Right ureteral stent present. No substantial hydronephrosis apparent. Duplicated left upper renal collecting system, left ureter stent present extending to the left lower moiety with no substantial lower moiety hydronephrosis. There is just antral hydronephrosis of the left upper moiety. Some retained fluid in small bowel and colon which may relate to mild enterocolitis. No evidence of bowel obstruction. No abscess. No free air. ASSESSMENT AND PLAN: 1. Abdominal pain, multifactorial, likely secondary to metastatic disease and urinary tract infection. Continue antibiotics and pain management, per primary care. 2. Recurrent urinary tract infection. Urine culture is presently pending. Urinalysis revealed 1+ bacteria with positive nitrites. She has been placed on ampicillin per primary care. 3. Acute kidney injury. Creatinine upon initial evaluation in the emergency room was elevated at 2.8. In the clinic, it appears her creatinine remains around 0.9 to 1.3. She has been started on IV hydration. Gonzalez catheter has been placed for acute urinary retention, which is also likely contributing factor. 4. Bilateral hydronephrosis, status post stent exchange by Dr. Goddard 08/2018. CT scan reviewed and as noted above. Recommend evaluation by her primary urologist. 5. Hypertension. Stable at present. Management per primary. 6. Recurrent metastatic adenocarcinoma KRAS mutated. She has had recent progression of disease. She is status post cycle 2 FOLFOX 6 with Avastin on 11/28/2018. CT scan reviewed above and compared with most recent CT pelvis from 10/2018 in clinic. Mass is overall relatively stable in size. She is actually due for cycle 3 of treatment tomorrow. Will continue to hold treatment at this time until her acute issues have resolved. The above findings represent the assessment and plan of Dr. Carlos Hudson. Further recommendations pending clinical outcomes. Thank you for allowing us to participate in the care of this patient. We will follow closely. Dictated by DENA Hobbs for Carlos Hudson MD cc: DENA Hobbs MD [facility]
--- NOTE | 2018-12-11 20:06 | CONSULTATION ---
DATE OF CONSULTATION: 12/11/2018 REFERRING PHYSICIAN: Nic. HISTORY OF PRESENT ILLNESS: This 48-year-old female has a history of recurrent metastatic colon cancer. This resulted in a large pelvic mass that caused bilateral hydroureteronephrosis. She had double-J stents placed in December of 2016. The stents are changed periodically approximately every 6 months and the last time in October of 2018. The patient's CT scan in January 2017 revealed the bilateral double-J stents in good position with a small left upper pole moiety that was very hydronephrotic. Her creatinine at that time was 0.9. She was admitted today with a very large firm abdominal mass with increased abdominal pain, renal insufficiency, urinary retention and bladder spasms. The patient's CT scan today again revealed bilateral double-J stents in good position with the left upper pole moiety being very dilated. Her creatinine was elevated at 2.8. The patient is receiving chemotherapy and states she is in her fourth week of abdominal radiation. The patient states she was recently treated for a urinary tract infection and still has bladder spasms. A postvoid scan was 500 mL, and a Gonzalez catheter was placed. PAST MEDICAL HISTORY: Colon cancer, hypertension. CURRENT MEDICATIONS: Documented on her chart. PAST SURGICAL HISTORY: Colon resection, pelvic mass biopsy, placement of a chemo port, multiple cystoscopic exams with stent exchanges, the last in October of 2018. SOCIAL HISTORY: No current tobacco or alcohol use. ALLERGIES: No known drug allergies. REVIEW OF SYSTEMS: She denies history of heart disease, diabetes, strokes, seizures, or recent pulmonary problems. She states she has no appetite at all and feels like she has significant bladder spasms. She was previously on Ditropan XL for her spasms. PHYSICAL EXAMINATION: General: A normally developed, mildly obese, age apparent, black female, oriented in all ways and cooperative. HEENT: Normal for age. Lungs: Clear. Cardiovascular: Regular rate and rhythm. Abdomen: Obese. Large hard mass from her left ribcage all the way down to the suprapubic area. Normal bowel sounds. Genitourinary exam: In October of 2018 had normal external female atrophic mucosa, a very firm pelvic mass but palpably normal bladder. Extremities: No C, C or E. Neurologic: No focal deficits. LABORATORY EVALUATION: He has a white count of 8.36, a hemoglobin 11.0, hematocrit of 34.6, and platelets are 179,000. Serum electrolytes are normal. BUN 21, creatinine 2.8. Her CEA was 616. CT stone search is as noted in the HPI. IMPRESSION: 1. Stage T4 recurrent colon cancer currently receiving chemotherapy and in her fourth week of radiation therapy to the abdomen. 2. Renal insufficiency. 3. Urinary retention. 4. Bilateral ureteral obstruction with bilateral double-J stents. 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 6. The largest part of the left kidney is decompressed with a double-J stent as evidenced by the CT scan. 7. The small upper pole moiety has never been decompressed with a double-J stent and was markedly hydronephrotic in January [address] scan with the left lower pole being decompressed by the double-J stent. I do not feel that changing the double-J stents or doing a percutaneous nephrostolithotomy of the upper pole will change her renal function at all since she has multiple causes of renal insufficiency with dehydration, radiation therapy and chemotherapy. RECOMMENDATIONS: 1. Keep Gonzalez catheter drainage, use B and O suppositories as needed for spasms and add in Ditropan XL if tolerated. 2. Change the double-J stent as scheduled in April 2019. Thank you for this consultation. cc: Cristhian Bob MD [facility]
[2018-12-11 21:18] LABS: CALCIUM 9.4 mg/dL (8.8-10.2); CREATININE 2.9 mg/dL (0.5-0.9); POTASSIUM 3.7 mmol/L (3.5-5.1)
[2018-12-11] MEDS: AMPICILLIN 1 GM/NS 1 GM/50 ML IVPB IV SCH (21:57)
[2018-12-12] MEDS: AMPICILLIN 1 GM/NS 1 GM/50 ML IVPB IV SCH ×4 (02:52→20:16)
[2018-12-12] MEDS: PRILOSEC PO SCH (06:23)
[2018-12-12] MEDS: DILAUDID IV PRN ×3 (06:31→20:16)
[2018-12-12] MEDS: NS 1,000 ML IV SCH (08:54)
--- NOTE | 2018-12-12 15:06 | PROGRESS NOTE ---
DATE: 12/12/2018 SUBJECTIVE: The patient reports pain is under control. No nausea and vomiting at this point. OBJECTIVE: Vital Signs: Temperature 97.4 degrees, heart rate 99, respiratory rate 18, blood pressure 106/68, O2 saturation 100% on room air. General: This is a chronically ill-appearing, 48-year-old female, looking older than her stated age, lying in bed, in no acute distress. Cardiovascular: S1, S2 heard. No murmurs, gallops, or rubs. Regular rate and rhythm. Respiratory: Clear bilaterally to auscultation. No work of breathing or using accessory muscles. Abdomen: Soft. Distended with palpable mass in the right mid abdomen that is tender to palpation. Bowel sounds present. No organomegaly. Extremities: No clubbing, cyanosis, or edema. Peripheral pulses present in both legs. Genitourinary: Gonzalez catheter in place, draining kaelyn urine. Neurological: Patient is alert and oriented x3. Moves 4 extremities. LABORATORY DATA: White cell count 8.36, hemoglobin 11.0, hematocrit 34.6, platelets 179,000. BMP is remarkable for creatinine 2.9. ASSESSMENT AND PLAN: 1. Stage T4 recurrent colon cancer. The reason why this patient was admitted to the hospital was because of abdominal pain. CT scan of the abdomen and pelvis showed a very large heterogeneous mass which extends from the pelvis to the mid abdomen. According to Hematology/Oncology it has not changed too much in size but they report that the abdominal pain could be secondary to metastatic disease. In any case, we have consulted Dr. Hudson from Oncology and Dr. Portillo from General Surgery to see what else we can do for this patient. 2. Recurrent urinary tract infection. Patient has history of Enterobacter ampicillin-sensitive UTI so we have started this patient on ampicillin until we have the final results of the urine culture. 3. Acute kidney injury. The renal function was elevated today. We have not checked labs today yet. 4. Bilateral hydronephrosis. We have consulted Dr. Bob from Urology and he thinks that the patient is fine from his standpoint and we do not need to change renal stent until April of this year. 5. Hypertension. Blood pressure is stable. 6. Recurrent metastatic adenocarcinoma. Oncology is following. cc: Raúl Gruber MD
[2018-12-12 15:13] LABS: BASO# 0.01 X1000 (0.0-0.2); BASO% 0.1 % (0.0-0.8); EOS# 0.07 X1000 (0.0-0.7); EOS% 0.9 % (0.0-10.0); HEMATOCRIT 32.3 % (37.0-47.0); HEMOGLOBIN 10.2 g/dL (12.0-16.0); IMM GRAN# 0.07 X1000 (0.0-0.04); IMM GRAN% 0.9 % (0.0-0.5); LYMPH# 0.55 X1000 (1.2-3.4); LYMPH% 6.9 % (20.5-51.1); MCH 28.7 PG (27-31); MCHC 31.6 g/dL (33-37); MONO# 0.62 X1000 (0.11-0.59); MONO% 7.8 % (1.7-9.3); MPV 9.2 FL (7.4-10.4); NEUT# 6.66 X1000 (1.4-6.5); NEUT% 83.4 % (42.2-75.2); PLT 186 X1000 (130-400); RBC 3.55 XMIL (4.2-5.4); RDW 15.9 % (11.5-14.5); WBC 7.98 X1000 (4.8-10.8)
[2018-12-12 15:32] LABS: CALCIUM 9.8 mg/dL (8.8-10.2); CREATININE 2.5 mg/dL (0.5-0.9); POTASSIUM 3.8 mmol/L (3.5-5.1)
[2018-12-12] MEDS: ZOFRAN IV PRN (20:19)
[2018-12-13] MEDS: ZOFRAN IV PRN ×3 (00:12→09:58)
[2018-12-13] MEDS: DILAUDID IV PRN ×5 (00:12→23:18)
[2018-12-13] MEDS: NS 1,000 ML IV SCH ×3 (01:20→16:03)
[2018-12-13] MEDS: AMPICILLIN 1 GM/NS 1 GM/50 ML IVPB IV SCH ×4 (03:16→21:20)
[2018-12-13] MEDS: PRILOSEC PO SCH (06:40)
[2018-12-13 07:18] LABS: BASO# 0.01 X1000 (0.0-0.2); BASO% 0.1 % (0.0-0.8); EOS# 0.12 X1000 (0.0-0.7); EOS% 1.6 % (0.0-10.0); HEMATOCRIT 34.1 % (37.0-47.0); HEMOGLOBIN 10.7 g/dL (12.0-16.0); IMM GRAN# 0.06 X1000 (0.0-0.04); IMM GRAN% 0.8 % (0.0-0.5); LYMPH# 0.38 X1000 (1.2-3.4); MCH 28.7 PG (27-31); MCHC 31.4 g/dL (33-37); MCV 91.4 FL (81-99); MONO# 0.69 X1000 (0.11-0.59); MPV 9.1 FL (7.4-10.4); NEUT# 6.37 X1000 (1.4-6.5); NEUT% 83.5 % (42.2-75.2); PLT 201 X1000 (130-400); RBC 3.73 XMIL (4.2-5.4); WBC 7.63 X1000 (4.8-10.8)
[2018-12-13 07:40] LABS: CALCIUM 9.8 mg/dL (8.8-10.2); CREATININE 2.1 mg/dL (0.5-0.9); POTASSIUM 3.6 mmol/L (3.5-5.1)
[2018-12-13] MEDS: DITROPAN XL PO SCH (16:03)
[2018-12-13] MEDS ORDERED: DILAUDID PO PRN (16:31)
[2018-12-13] MEDS ORDERED: DILAUDID IV PRN (16:32)
[2018-12-13] MEDS: DILAUDID PO PRN ×2 (16:51→21:32)
--- NOTE | 2018-12-13 17:10 | PROGRESS NOTE ---
DATE: 12/13/2018 INTERVAL HISTORY: No acute overnight events. The patient's heart rate was 90 to 100. She continues to have intermittent abdominal pain. The patient's family is at bedside. I discussed with them about the clinical exam findings. I also discussed with them about the imaging findings and reason for the pain medications. Urology did not plan any new intervention. Surgical note is pending. However, patient states that she had a discussion with the cancer doctor, and the surgeon doctor. They would eventually decide if she could be a candidate for any surgical intervention in the future at [facility]. VITALS: Temperature 97.5 degrees, pulse 85, respiratory rate 17, blood pressure 110/63, and saturation 96% on room air. PHYSICAL EXAMINATION: General: She appears in mild distress because of pain. She does have subconjunctival hemorrhage of the left conjunctiva. Oral cavity is dry. Lungs: Air entry bilaterally equal. No wheeze, rhonchi, or crackles. Cardiovascular: S1, S2 normal. No murmur, rub, or gallop. Abdomen: Distended. She has a large tumor that is palpable across entire abdomen which is dull to percussion and significantly tender. She has urine catheter. She has mild bilateral lower extremity edema. Input and output suggests her Gonzalez catheter is draining about 650 mL. LABORATORY: Labs are suggestive of no leukocytosis, normocytic anemia, normal platelet count, normal electrolytes. Improving acute kidney injury. MICROBIOLOGY: Urine culture is growing mixed mikey. ASSESSMENT AND PLAN: 1. Abdominal pain diffuse in the setting of recurrent stage T4 colon cancer. The patient had colon and lymph node dissection with chemotherapy in 2014. She had a recurrence of cancer in 2017. She has been on chemotherapy since then and has been started on radiation recently of which she has completed 4 of the 6 cycles. Increased intravenous hydromorphone dose, and start patient on p.o. hydromorphone. Also, start the patient on oxybutynin daily for abdominal pain and pain related to bladder spasm. She also has opium and belladonna suppository as needed every 6 hours. 2. Suspected urinary tract infection. Her initial urine culture just grew mixed mikey so a repeat urine sample has been ordered. I will continue intravenous ampicillin until final urine culture results comes back. 3. Acute kidney injury. Now, her baseline kidney function is normal. Her DEVANG appears to be improving. This could be in the setting of volume depletion. She does have prior history of bilateral hydronephrosis requiring double-J stent in December of 2016. Her stent appeared to be at good place. She does not have any new right-sided hydronephrosis, and her left-sided upper moiety hydronephrosis appears to be stable. No further intervention is planned. Continue Gonzalez catheter, which has been leaky. I will appreciate Urology's recommendation if that needs further management. 4. Disposition. I will continue to manage patient inside the hospital for abdominal pain. If her abdominal pain does not get better, my plan is to start her on hydromorphone DRY HOUSE WHEELER pump tomorrow onwards. Plan of care discussed with the patient. All of her questions have been answered. cc: Bridger Chowdhury MD
[2018-12-14] MEDS: DILAUDID IV PRN ×3 (02:49→10:58)
[2018-12-14] MEDS: NS 1,000 ML IV SCH (02:51)
[2018-12-14] MEDS: AMPICILLIN 1 GM/NS 1 GM/50 ML IVPB IV SCH ×2 (02:51→09:12)
[2018-12-14] MEDS: PRILOSEC PO SCH (06:31)
[2018-12-14 06:59] LABS: BASO# 0.01 X1000 (0.0-0.2); BASO% 0.2 % (0.0-0.8); EOS# 0.16 X1000 (0.0-0.7); EOS% 2.5 % (0.0-10.0); HEMATOCRIT 30.7 % (37.0-47.0); HEMOGLOBIN 9.5 g/dL (12.0-16.0); IMM GRAN% 1.5 % (0.0-0.5); LYMPH# 0.32 X1000 (1.2-3.4); LYMPH% 4.9 % (20.5-51.1); MCH 28.6 PG (27-31); MCHC 30.9 g/dL (33-37); MCV 92.5 FL (81-99); MONO# 0.52 X1000 (0.11-0.59); MPV 8.7 FL (7.4-10.4); NEUT# 5.42 X1000 (1.4-6.5); NEUT% 82.9 % (42.2-75.2); PLT 194 X1000 (130-400); RBC 3.32 XMIL (4.2-5.4); RDW 16.1 % (11.5-14.5); WBC 6.53 X1000 (4.8-10.8)
[2018-12-14 07:13] LABS: URINE SOURCE CATH
[2018-12-14 07:15] LABS: BILIRUBIN URINE NEGATIVE (NEGATIVE); BLOOD URINE LARGE (NEGATIVE); COLOR ORANGE; GLUCOSE URINE NEGATIVE (NEGATIVE); KETONE URINE NEGATIVE (NEGATIVE); LEUKOCYTES URINE LARGE (NEGATIVE); NITRITE URINE NEGATIVE (NEGATIVE); PH URINE 6.5; PROTEIN URINE 300 mg/dL (NEGATIVE); SP GRAVITY URINE 1.015; TURBIDITY URINE HAZY (CLEAR); UR EPITHELIAL CELLS <10 /HPF (<10); URINE BACTERIA NEGATIVE /HPF; URINE RBC TNTC /HPF (<10); URINE WBC TNTC /HPF (<10); UROBILINOGEN URINE NORMAL (NORMAL)
[2018-12-14 07:28] LABS: CALCIUM 8.7 mg/dL (8.8-10.2); CREATININE 1.5 mg/dL (0.5-0.9); POTASSIUM 3.8 mmol/L (3.5-5.1)
--- NOTE | 2018-12-14 07:47 | EKG Report ---
Test Performed on : 12/13/2018 5:05:49 PM Test Reason : Tachycardia Blood Pressure : / mmHG Vent. Rate : 093 BPM Atrial Rate : 093 BPM P-R Int : 108 ms QRS Dur : 086 ms QT Int : 350 ms P-R-T Axes : 034 000 005 degrees QTc Int : 435 ms Sinus rhythm. with short FL Possible Inferior infarct , age undetermined Cannot rule out Anterior infarct (cited on or before 12-APR-2018) Abnormal ECG When compared with ECG of 12-APR-2018 13:05, No significant change was found Confirmed by Magda HUTTON, Malachi Gagnon ([id number]) on 12/18/2018 7:25:52 PM
[2018-12-14] MEDS: DITROPAN XL PO SCH (09:12)
[2018-12-14] MEDS: ZOFRAN IV PRN (10:59)
[2018-12-14] MEDS ORDERED: LR 1,000 ML IV SCH (11:30)
[2018-12-14] MEDS ORDERED: BENADRYL IV PRN (11:30)
[2018-12-14] MEDS ORDERED: NARCAN IV PRN (11:30)
[2018-12-14] MEDS ORDERED: SODIUM CHLORIDE 0.9% INJ PRN (11:30)
[2018-12-14] MEDS ORDERED: PHENERGAN IV PRN (11:30)
[2018-12-14] MEDS ORDERED: ZOFRAN IV PRN (11:30)
[2018-12-14] MEDS ORDERED: NS 1,000 ML IV SCH (13:44)
--- NOTE | 2018-12-14 14:19 | PROGRESS NOTE ---
DATE: 12/14/2018 INTERVAL HISTORY: The patient's vitals were unremarkable. EKG has normal sinus rhythm. Her antibiotics have been changed to ceftriaxone since repeat urine analysis has pyuria as well. The culture is pending. DEVANG he is improving and she has been in the process of getting a DIRECTOR OF EPIDEMIOLOGY pump. I had discussion with her oncologist in the morning time and the plan is to continue chemo and radiation. Apparently, [facility] recommended that she her cancer may not be amenable to a very major surgery. SUBJECTIVE: Patient states her pain is intermittent, comes and goes. VITALS: Temperature 97.7 degrees, pulse 111, respiratory rate 19, blood pressure 120/68 saturating 100% on room air. PHYSICAL EXAMINATION: General: Obviously a little drowsy because of IV pain medication she had received but easily arousable. Denies any chest pain or shortness of breath. I discussed with her and her family at bedside about exam findings. I answered all of their questions. PHYSICAL EXAMINATION: HEENT: Mild distress because of pain. There is left-sided subconjunctival hemorrhage. Oral cavity is dry. Lungs: Air entry bilaterally equal. No wheeze, rhonchi, or crackles. Cardiovascular: S1, S2 normal. No murmur, rub or gallop. Abdomen: Distended, large tumor that is palpable across entire abdomen, dull to percussion and significantly tender. She has a urine catheter. Mild bilateral lower extremity edema. LABS: Today labs suggestive of improving BUN and creatinine with creatinine of 1.5. She has normocytic anemia, normal platelet count. Repeat urine culture is in lab. No new imaging. ASSESSMENT AND PLAN: 1. Diffuse abdominal pain because of stage T4 colon cancer occupying pelvis and large part of abdominal cavity. She had sigmoid resection in 2014 and currently she is on chemo/radiation of which she has completed 4 of the 6 cycles. I will change her pain medication regimen to hydromorphone DIRECTOR OF EPIDEMIOLOGY pump since her pain is intractable. Oncology planning further chemo radiation as an outpatient. Continue opium and belladonna suppository as needed every 6 hours for bladder spasm. Continue oxybutynin for bladder spasm as well. I will start patient on bisacodyl and MiraLAX to avoid constipation. 2. Suspected urinary tract infection. Her repeated urinalysis also has pyuria, though it also appears to have slight degree of hematuria as well. Change antibiotics to intravenous ceftriaxone and follow up final culture results. 3. Acute kidney injury in the setting of volume depletion because of poor p.o. intake. She had history of bilateral hydronephrosis requiring double-J stent in December 2016 because of large pelvic tumor and the repeat CT scan this admission does not have any right-sided hydronephrosis and the left kidney upper moiety hydronephrosis is stable. I will continue intravenous fluid resuscitation and close monitoring of kidney function. Gonzalez catheter is in place. Urology on board. No further intervention planned. DISPOSITION: I will monitor patient inside the hospital for 24 to 48 hours. Await final urine culture results and the plan would be for her to be discharged on IV hydromorphone pump, hopefully Monday. Plan of care discussed with her and her family at bedside. All of the questions have been answered. cc: Bridger Chowdhury MD
[2018-12-14] MEDS: DILAUDID PCA VIAL IV PRN (14:45)
[2018-12-14] MEDS: ROCEPHIN 1 GM in NS 50 ML IV SCH (16:56)
[2018-12-14] MEDS: DULCOLAX PR SCH ×2 (20:27→23:10)
[2018-12-14] MEDS: MIRALAX PO SCH (20:27)
[2018-12-15] MEDS: PRILOSEC PO SCH (06:29)
[2018-12-15 08:08] LABS: CALCIUM 9.2 mg/dL (8.8-10.2); CREATININE 1.2 mg/dL (0.5-0.9); POTASSIUM 4.6 mmol/L (3.5-5.1)
[2018-12-15] MEDS: DITROPAN XL PO SCH (09:27)
[2018-12-15] MEDS: MIRALAX PO SCH ×2 (09:27→20:34)
--- NOTE | 2018-12-15 11:22 | PROGRESS NOTE ---
DATE: 12/15/2018 INTERVAL HISTORY: No acute events overnight. Patient has been tolerating CHUCK SPLITTER pump well. She says her pain is reasonably better controlled than yesterday. She did have some mucoid bowel movement, but she does not remember if that had stool in it or not. PHYSICAL EXAMINATION: Vital Signs: Temperature 97.5 degrees, pulse 92, respiratory rate 16, blood pressure 120/67, saturating 100% room air. General: Does not appear in any acute distress. HEENT: Oral cavity is moist. She has a subconjunctival hemorrhage in the left eye. Lungs: Air entry bilaterally equal. No wheeze, rhonchi, crackles. Cardiovascular: S1, S2 normal. No murmur or gallop. Abdomen: Distended. Large tumor palpable across the entire abdomen. Dull to percussion. It is significantly tender. She has a urine catheter and bilateral lower extremity edema. She continues to complain of abdominal pain. LABS: Today, BMP is suggestive of improving acute kidney injury with creatinine of 1.2. MICROBIOLOGY: Urine culture is still pending. ASSESSMENT AND PLAN: 1. Diffuse intractable abdominal pain because of stage T4 colon cancer, occupying pelvis and large part of abdominal cavity, status post sigmoid resection in 2014, and currently on chemoradiation, and is status post 5 of the 6 radiation cycles. Continue hydromorphone CHUCK SPLITTER for pain management. The plan is to resume chemoradiation as an outpatient, considering very extensive tumor burden intraabdominally. Hematology/Oncology on board. Continue opium belladonna suppository as well as oxybutynin for bladder spasm. Start patient on MiraLAX and lactulose to make sure to avoid constipation. 2. Suspected urinary tract infection. Continue intravenous ceftriaxone and follow up final culture results. 3. Acute kidney injury, in the setting of poor oral intake, volume depletion, and history of bilateral hydronephrosis requiring double-J stent in December 2016. Currently, those issues are stable. Continue Gonzalez catheter. Urology on board. No further intervention planned since her hydronephrosis has pretty much resolved. 4. Disposition. I am awaiting final urine culture results and adjustment in hydromorphone CHUCK SPLITTER pump. Based on that, my plan is to discharge her on home CHUCK SPLITTER pump on Monday, if that could be set up. Hematology/Oncology team will take care of the CHUCK SPLITTER pump. Plan of care discussed with patient and her family at bedside. All of their questions have been answered. cc: Bridger Chowdhury MD MTDEris
[2018-12-15] MEDS ORDERED: NS 1,000 ML ONE (13:48)
[2018-12-15] MEDS: ROCEPHIN 1 GM in NS 50 ML IV SCH (14:34)
[2018-12-15] MEDS: LACTULOSE PO SCH ×2 (16:35→20:34)
[2018-12-15] MEDS: DILAUDID PCA VIAL IV PRN (17:17)
[2018-12-16] MEDS: PRILOSEC PO SCH (06:13)
[2018-12-16] MEDS: MIRALAX PO SCH ×2 (08:33→20:28)
[2018-12-16] MEDS: DITROPAN XL PO SCH (08:34)
[2018-12-16] MEDS: LACTULOSE PO SCH ×2 (08:34→20:19)
[2018-12-16] MEDS ORDERED: NS 1,000 ML ONE (08:35)
[2018-12-16] MEDS: ROCEPHIN 1 GM in NS 50 ML IV SCH (12:52)
--- NOTE | 2018-12-16 15:44 | PROGRESS NOTE ---
DATE: 12/16/2018 INTERVAL HISTORY: The patient had a bowel movement. Her abdominal pain is reasonably well controlled on TOOL CARRIER pump. She states that she would not like to go home on a urinary catheter, so I am going to give her a voiding trial tomorrow. Her urine culture did not have any growth, so I am discontinuing antibiotic today. Her vitals were unremarkable. Family is at bedside. All of the questions have been answered. We discussed about risks versus benefits of keeping urinary catheter. VITALS: Temperature 98.3 degrees, pulse 94, respiratory rate 16, blood pressure 120/70, saturating 98% on room air. PHYSICAL EXAMINATION: General: She appears in mild distress because of pain. HEENT: Oral cavity is moist. Subconjunctival hemorrhage in the left eye. Lungs: Air entry bilaterally equal. No wheeze, rhonchi, or crackles. Cardiovascular: S1, S2 normal. No murmur or gallop. Abdomen: Distended. Large tumor palpable across the entire abdomen, dull to percussion, significantly tender. She has urinary catheter. Extremity: Bilateral lower extremity edema extending up to knee. LABS: No CBC today. BMP is suggestive of resolution of of acute kidney injury. Urine culture, no growth to date. IMAGING: No new imaging today. EKG: Had sinus rhythm with short ND interval. ASSESSMENT AND PLAN: 1. Diffuse intractable abdominal pain because of stage T4 colon cancer occupying pelvis and large part of abdominal cavity, status post sigmoid resection in 2014 and on current chemoradiation and status post 5 of the 6 radiation cycles. Continue hydromorphone TOOL CARRIER for pain management. Plan is to discharge her on TOOL CARRIER pump. Continue MiraLAX and lactulose to avoid constipation. 2. Suspected urinary tract infection. She was initially on intravenous ampicillin which was changed to intravenous ceftriaxone. Urine culture does not have any growth, so I will stop the antibiotics. 3. Acute kidney injury in the setting of poor p.o. intake, volume depletion, and in the setting of previous history of bilateral hydronephrosis requiring double-J stent in December 2016. Now it is resolving after intravenous fluid resuscitation. My plan is to discontinue Gonzalez catheter tomorrow morning and give her a voiding trial. Urology on board, and her hydronephrosis is stable, which does not require any other intervention except routine change of stent in April 2019. 4. Disposition. Once the TOOL CARRIER pump hydromorphone is set up for home tomorrow, my plan is to discharge her home. Plan of care discussed with her and her family members. All of the questions have been answered. cc: Bridger Chowdhury MD MTDD
[2018-12-16] MEDS: DILAUDID PCA VIAL IV PRN (18:13)
[2018-12-17] MEDS: PRILOSEC PO SCH (06:10)
[2018-12-17] MEDS: DITROPAN XL PO SCH (09:47)
[2018-12-17] MEDS: LACTULOSE PO SCH (09:48)
[2018-12-17] MEDS: MIRALAX PO SCH (09:48)
--- NOTE | 2018-12-17 12:49 | DISCHARGE SUMMARY ---
ADMISSION DATE: 12/11/2018 DISCHARGE DATE: 12/17/2018 PRIMARY CARE PHYSICIAN: Cecilio Paiz ADMITTING DIAGNOSES: 1. Abdominal pain. 2. Urinary retention. 3. Recent urinary tract infection on 10/16/2018 with an Enterococcus faecalis. 4. Acute kidney injury. 5. Hypertension. 6. Colon cancer, receiving chemotherapy under the guidance of Dr. Hudson. 7. Bladder spasms. DISCHARGE DIAGNOSES: 1. Diffuse intractable abdominal pain due to stage T4 colon cancer occupying pelvis and large part of abdominal cavity, status post sigmoid resection in 2014 and on current chemoradiation and status post 5 of 6 radiation cycles. 2. Suspected urinary tract infection with urine culture showing no growth. 3. Acute kidney injury in the setting of poor p.o. intake, volume depletion, urine retention and history of bilateral hydronephrosis requiring double-J stent in 12/2016, now resolved. CONSULTATIONS: Urology. SUMMARY OF FINDINGS: This is a 48-year-old female who presented to the emergency room with suprapubic pain and pressure with frequency and urgency, history of recurrent colon cancer resulting in a large pelvic mass that caused bilateral hydroureteronephrosis, currently receiving chemotherapy under Dr. Hudson with radiation with Dr. Maradiaga. Denied any hematuria, fever or chills. Was admitted, started on ampicillin and IV ceftriaxone, given IV hydration, placed an indwelling Gonzalez catheter. Hematology was following. Urology was following. She is scheduled to have a change of her double-J stent as scheduled in 04/2019. We used B and O suppositories as needed for the spasms and added Ditropan XL. She has a COMMUNITY SERVICES OFFICER pump for discharge initally, however, she could not go on it home since since she did not have any insurance(PLEASE SEE DISCHARGE SUMMARY ADDENDUM). She was placed on a bowel regimen to avoid constipation. We have discontinued her antibiotics at this time due to no growth from her urine culture, and it is felt that she can safely be discharged home at this time. (PLEASE SEE DISCHARGE SUMMARY ADDENDUM FOR UPDATE) DISCHARGE MEDICATIONS: Narcan 0.2 mg IV p.r.n., omeprazole 40 mg p.o. daily, Ditropan 5 mg p.o. daily, MiraLAX 17 g p.o. b.i.d., omeprazole 40 mg p.o. daily, Zofran 8 mg p.o. q.8 to 12 hours p.r.n., opioid pain medication pending pharmacy recommendation dosing. (PLEASE SEE DISCHARGE SUMMARY ADDENDUM FOR UPDATE) FOLLOWUP: She will need to follow up with her primary care physician, Urology and Oncology in the next 1 to 2 weeks. This is a 35 minute discharge. Dictated by DENA Davis for Bridger Chowdhury MD cc: DENA Davis MD Olaoluwa M. Odofin Sammy Becdach, MD William E. Hughes, MD Hugh C. Nabers, MD I agree with most components of discharge summary and a separate addendum has been dictated. [facility]
[2018-12-17] MEDS ORDERED: MORPHINE IR PO PRN (14:45)
[2018-12-17] MEDS: MS CONTIN PO SCH ×2 (16:27→21:19)
--- NOTE | 2018-12-17 21:01 | DISCHARGE SUMMARY ---
ADMISSION DATE: 12/11/2018 DISCHARGE DATE: 12/17/2018 ADDENDUM REPORT An addendum to discharge summary dictated by the nurse practitioner. I agree with most components of discharge summary. The patient did not have any acute overnight events. She keeps on having regular bowel movements. She continues to have abdominal pain, which is slightly better controlled than at home. Current temperature 98.1, pulse 88, respiratory rate 14, blood pressure 118/76, saturating 93% on room air. PHYSICAL EXAMINATION: Not in any acute distress. Oral cavity is dry. no wheeze, rhonchi, crackles. S1, S2 normal. No murmur or gallop. Abdomen is distended. Large tumor palpable across the entire abdomen, dull to percussion, significantly tender. She has a urine catheter which will be removed at the time of discharge. She has bilateral lower extremity edema. LABS: At the time of discharge, no CBC or BMP today. ASSESSMENT AND PLAN: Her abdominal pain is because of massive abdominal tumor, which is colon cancer T4. Plan is to discharge her home on hydromorphone MARINE ERECTOR pump. house worker general team is working this, to set up in coordination with Dr. Hudson's office, since patient does not have insurance. She should continue stool softener as to avoid constipation. She should continue followup with Dr. Hudson for chemo and radiation. She would not be a candidate of surgery as per my discussion with her cancer doctor. She should also see Dr. Bob if she has further urinary retention since we are planning to remove the Gonzalez catheter now. Plan of care was discussed with her and all of her questions have been answered. The Gonzalez catheter was causing a lot of pain and at home she would like to be without Gonzalez catheter. COORDINATION TIME: More than 30 minutes were spent in discharging this patient. (PLEASE SEE further DISCHARGE SUMMARY ADDENDUM) cc: MD GILBERTO Bach
[2018-12-18] MEDS: LACTULOSE PO SCH ×2 (00:07→08:47)
[2018-12-18] MEDS: MIRALAX PO SCH ×2 (00:08→08:46)
[2018-12-18] MEDS: PRILOSEC PO SCH (06:06)
[2018-12-18 07:36] VITALS: BP 102/61
[2018-12-18] MEDS: MS CONTIN PO SCH (08:45)
[2018-12-18] MEDS: DITROPAN XL PO SCH (08:46)
[2018-12-18] MEDS ORDERED: FLOMAX PO SCH (11:15)
--- NOTE | 2018-12-19 11:49 | PROGRESS NOTE ---
DATE: 12/17/2018 INTERVAL HISTORY: No acute event overnight. SUBJECTIVE: The patient is denying any complaints. OBJECTIVE: Vital Signs: Temperature 98.1 degrees, pulse 88, respiratory rate 14, blood pressure 110/76, saturating 93% on room air. General: Does not appear in acute distress. HEENT: Oral cavity is moist. Lungs: No wheeze or rhonchi. Heart: Normal. No murmur or gallop. Abdomen: Soft, distended. Generalized tenderness. Abdominal mass palpable of colon cancer. Extremities: Bilateral lower extremity edema. Genitourinary: She has urine catheter in place. The patient was just complaining of abdominal pain. She has had multiple bowel movements. ASSESSMENT AND PLAN: 1. Diffuse intractable abdominal pain because of stage T4 colon cancer occupying pelvis and large part of abdominal cavity. 2. Suspected urinary tract infection with negative urine culture. 3. Acute kidney injury because of poor oral intake. The initial plan was to discharge home on patient-controlled analgesia pump. However, because the patient does not have insurance, this could not be set up. The patient has been started on opioid medication as per the Pharmacy and Hematology/Oncology recommendation, and based on that, plan is to discharge her on that tomorrow. cc: Bridger Chowdhury MD
--- NOTE | 2018-12-19 16:27 | PROGRESS NOTE ---
DATE: 12/17/2018 INTERVAL HISTORY: Initially, the plan was for patient to be discharged home on home MANAGER OF CASE. However, later, it was figured out that the patient does not have insurance so the patient was started on a long-acting opioid medication by the doctor, parachute marker/oncologist. The patient's urine catheter was also removed. VITALS: Temperature 98.1 degrees, pulse 98, respiratory rate 14, blood pressure 120/67, saturating 96% on room air. PHYSICAL EXAMINATION: General: Does not appear in acute distress, in mild distress. Oral cavity is moist. Air entry bilaterally equal. No wheeze or crackles. S1 and S2 normal. No murmur, rub, or gallop. Abdomen: Firm, distended, tympanic, dull to percussion, significantly tender. She currently has urine catheter. Bilateral lower extremity edema. LABS: No new labs today. ASSESSMENT AND PLAN: 1. Diffuse intractable abdominal pain because of stage T4 colon cancer. 2. Suspected urinary tract infection. 3. Acute kidney injury. PLAN: The patient's MANAGER OF CASE pump will be stopped and she will be started on long-acting morphine as per hematology/oncology's recommendation. Urine catheter would be removed and after observing her inside the hospital for 24 hours, plan is to discharge her home tomorrow. cc: Bridger Chowdhury MD
== END 2018-12-18 15:10 | disposition home or self-care (01) | DRG 683 ==
LOC: ED 03:50 → SUATTDRO 09:42 → EDIPHOLD 09:42 → 3N 20:10
PROVIDERS: ATTEND Internal Medicine
CPT/HCPCS: 51702; 74176; 80048; 80053; 81001; 82378; 83605; 85025; 86304; 87088; 93005; 93010; 96374; 96375; 96376; 99285; A9270; J0290; J0696; J1170; J2405; J7030

== ENCOUNTER 2019-04-18 17:25 | Inpatient (IN) ==
[2019-04-18 17:54] LABS: URINE SOURCE CLEAN CATCH
[2019-04-18 17:58] LABS: BILIRUBIN URINE NEGATIVE (NEGATIVE); BLOOD URINE MODERATE (NEGATIVE); COLOR YELLOW; GLUCOSE URINE TRACE mg/dL (NEGATIVE); KETONE URINE NEGATIVE (NEGATIVE); LEUKOCYTES URINE LARGE (NEGATIVE); NITRITE URINE NEGATIVE (NEGATIVE); PROTEIN URINE 600 mg/dL (NEGATIVE); SP GRAVITY URINE 1.015; TURBIDITY URINE HAZY (CLEAR); UROBILINOGEN URINE NORMAL (NORMAL)
[2019-04-18 18:03] LABS: UR EPITHELIAL CELLS <10 /HPF (<10); URINE BACTERIA NEGATIVE /HPF; URINE WBC TNTC /HPF (<10)
[2019-04-18 18:10] LABS: URINE SMALL ROUND CELLS TRANS PRESENT
--- NOTE | 2019-04-18 18:18 | PROVIDER DOCUMENTATION ---
HPI-Female /OB/Breast - General Chief Complaint: UTI Symptoms Stated Complaint: BACK PAIN Time Seen by Provider: 04/18/19 18:17 Source: reports: patient Allergies/Adverse Reactions: Patient Allergies Allergy/AdvReac Type Severity Reaction Status Date / Time iron dextran complex Allergy Mild ITCHING Verified 04/18/19 20:45 [From Infed] adhesive tape Allergy Unknown ITCHING Verified 04/18/19 20:45 oxaliplatin AdvReac RASH Verified 04/18/19 20:45 Home Medications: Home Medication List Medication Instructions Recorded Confirmed Last Taken Type Ondansetron HCl [Zofran] 8 mg PO Q8-12H PRN PRN 11/12/18 04/18/19 11/25/18 History Morphine E.r. [Ms Contin] 60 mg PO BID #16 tab 12/18/18 04/18/19 12/25/18 Rx Morphine Ir 15 mg PO Q6H PRN PRN #30 tab 12/18/18 04/18/19 12/23/18 Rx - History of Present Illness-Female /OB Nature of Presenting Problem: 49 YO F pmh for colon cancer currently on chemotherapy with previous partial resection in 2013 and hx of chronic UTI and b/l renal stents presents with low back pain and bladder spasms and feelings of incomplete emptying since this morning. Pt states she is scheduled to have renal stents replaced on next week. She denies fever. Location of complaint: reports: right flank, left flank Radiation: reports: none Quality of Pain: reports: aching, cramping Severity in ED: reports: moderate Onset/Duration: reports: this morning Timing: reports: still present Context/Activities at Onset: reports: none Vaginal Symptoms: reports: no symptoms Vaginal Bleeding Amount: None Similar Symptoms Previously?: Yes Recently seen or treated by another doctor?: No Review of Systems - Adult - REVIEW OF SYSTEMS - ADULT Constitutional: denies: chills, fever Eyes: reports: no symptoms reported Ears, Nose, Mouth & Throat: reports: no symptoms reported Cardiovascular: reports: no symptoms reported Respiratory: reports: no symptoms reported Gastrointestinal: denies: nausea, vomiting Genitourinary: reports: flank pain, frequent UTI's, hesitency, urinary retention Musculoskeletal: reports: no symptoms reported Integumentary: reports: no symptoms reported Neurological: reports: no symptoms reported Psychiatric: reports: no symptoms reported Past History - Adult - PAST MEDICAL HISTORY-ADULT Review of Records: reports: Old Records Reviewed Major Childhood Illnesses: reports: denies history Cardiovascular: reports: HTN Respiratory: reports: denies history Gastrointestinal: reports: cancer (colon) Obstetrical/Gynecological: reports: denies history Genitourinary: reports: denies history Musculoskeletal: reports: denies history Neurological: reports: denies history Endocrine/Immune: reports: denies history Other Conditions: reports: denies history - PRIOR SURGERIES/PROCEDURES Surgical/Procedure History: reports: other (colon resection). denies: recent surgery - IMMUNIZATION STATUS Childhood Immunizations: See Nurse Assessment Flu Vaccine: See Nurse Assessment - FAMILY HISTORY Family History: reviewed, not pertinent - SOCIAL HISTORY Smoking: denies Substance Use: denies Living Situation: family Physical Exam-General - PHYSICAL EXAM-ADULT Initial Vital Signs Reviewed: Yes - CONSTITUTIONAL General Appearance: alert, no apparent distress - EYES Eyes: PERRL/EOMI, pink conjunctivae - HEAD, EARS, NOSE, MOUTH & THROAT HENMT: normocephalic/atraumatic, moist mucous membranes - CARDIOVASCULAR Cardiovascular: tachycardia - GASTROINTESTINAL (ABDOMEN) Abdominal Exam: tenderness, mass (suprapubic mass, and mass in right upper quadrant felt) - MUSCULOSKELETAL Extremity: normal range of motion, normal gait - SKIN Integumentary: normal color, normal turgor, warm/dry - NEUROLOGIC Neurologic: grossly normal - PSYCHIATRIC Psych/Mental Status: normal mood/affect, oriented x 3, tearful Progress - PLAN OF CARE/RESULTS Progress/Plan/Lab Results: Vital Signs - 8 hr 04/18/19 17:28 04/18/19 20:07 04/18/19 20:08 Temperature 98.1 F Pulse Rate 127 H 114 H 114 H Respiratory Rate 18 24 30 H Blood Pressure 164/107 152/115 O2 Sat by Pulse Oximetry 98 98 97 04/18/19 20:15 04/18/19 20:30 04/18/19 20:40 Temperature Pulse Rate 114 H 113 H 108 H Respiratory Rate 27 H 26 H 20 Blood Pressure 161/111 O2 Sat by Pulse Oximetry 97 97 98 04/18/19 20:45 04/18/19 21:04 04/18/19 21:35 Temperature Pulse Rate 108 H 112 H 105 H Respiratory Rate 28 H 14 Blood Pressure 131/84 O2 Sat by Pulse Oximetry 96 04/18/19 21:36 10/17/19 21:45 04/18/19 22:00 Temperature Pulse Rate 105 H 108 H 93 H Respiratory Rate 17 21 17 Blood Pressure O2 Sat by Pulse Oximetry 98 97 96 Laboratory Results - last 24 hr 04/18/19 04/18/19 04/18/19 17:48 19:19 19:19 WBC 20.68 H RBC 4.25 Hgb 13.4 Hct 42.6 MCV 100.2 H MCH 31.5 H MCHC 31.5 L RDW Std Deviation 15.2 H Plt Count 317 MPV 9.8 Immature Gran % (Auto) 0.5 Neut % (Auto) 94.7 H Lymph % (Auto) 2.6 L Noble % (Auto) 2.0 Eos % (Auto) 0.1 Baso % (Auto) 0.1 Immature Gran # (Auto) 0.11 H Neut # (Auto) 19.58 H Lymph # (Auto) 0.53 L Noble # (Auto) 0.42 Eos # (Auto) 0.02 Baso # (Auto) 0.02 PT INR PTT (Actin FS) Sodium 144 Potassium 2.8 L Chloride 97 L Carbon Dioxide 33 Anion Gap 14 BUN 12 Creatinine 0.8 Estimated GFR/1.73 m2 > 60 BUN/Creatinine Ratio 15 Glucose 117 H Calculated Osmolality 288 Calcium 9.1 Total Bilirubin 0.72 AST 9 L ALT 6 L Alkaline Phosphatase 120 H Creatine Kinase Troponin T Total Protein 7.8 Albumin 3.9 Globulin 3.9 Albumin/Globulin Ratio 1.0 Plasma Lactate Urine Source CLEAN CATCH Urine Color YELLOW Urine Turbidity HAZY Urine pH 8.0 Ur Specific [place] 1.015 Urine Protein 600 A Ur Glucose (Stick) TRACE Ur Ketones (Stick) NEGATIVE Urine Blood MODERATE A Urine Nitrite NEGATIVE Urine Bilirubin NEGATIVE Urobilinogen Dipstick NORMAL Urine Leukocytes LARGE A Urine WBC (Auto) TNTC A Urine RBC (Auto) 10-20 A U Epithel Cells (Auto) <10 Urine Bacteria (Auto) NEGATIVE Urine Crystals Not Reportable Small Round Cells TRANS PRESENT Urine Casts Not Reportable Urine Yeast-like Cells Not Reportable 04/18/19 04/18/19 04/18/19 19:19 19:19 19:19 WBC RBC Hgb Hct MCV MCH MCHC RDW Std Deviation Plt Count MPV Immature Gran % (Auto) Neut % (Auto) Lymph % (Auto) Noble % (Auto) Eos % (Auto) Baso % (Auto) Immature Gran # (Auto) Neut # (Auto) Lymph # (Auto) Noble # (Auto) Eos # (Auto) Baso # (Auto) PT 14.6 INR 1.12 PTT (Actin FS) 27.5 Sodium Potassium Chloride Carbon Dioxide Anion Gap BUN Creatinine Estimated GFR/1.73 m2 BUN/Creatinine Ratio Glucose Calculated Osmolality Calcium Total Bilirubin AST ALT Alkaline Phosphatase Creatine Kinase 40 Troponin T < 0.010 Total Protein Albumin Globulin Albumin/Globulin Ratio Plasma Lactate Urine Source Urine Color Urine Turbidity Urine pH Ur Specific [place] Urine Protein Ur Glucose (Stick) Ur Ketones (Stick) Urine Blood Urine Nitrite Urine Bilirubin Urobilinogen Dipstick Urine Leukocytes Urine WBC (Auto) Urine RBC (Auto) U Epithel Cells (Auto) Urine Bacteria (Auto) Urine Crystals Small Round Cells Urine Casts Urine Yeast-like Cells 04/18/19 20:30 WBC RBC Hgb Hct MCV MCH MCHC RDW Std Deviation Plt Count MPV Immature Gran % (Auto) Neut % (Auto) Lymph % (Auto) Noble % (Auto) Eos % (Auto) Baso % (Auto) Immature Gran # (Auto) Neut # (Auto) Lymph # (Auto) Noble # (Auto) Eos # (Auto) Baso # (Auto) PT INR PTT (Actin FS) Sodium Potassium Chloride Carbon Dioxide Anion Gap BUN Creatinine Estimated GFR/1.73 m2 BUN/Creatinine Ratio Glucose Calculated Osmolality Calcium Total Bilirubin AST ALT Alkaline Phosphatase Creatine Kinase Troponin T Total Protein Albumin Globulin Albumin/Globulin Ratio Plasma Lactate 1.7 Urine Source Urine Color Urine Turbidity Urine pH Ur Specific [place] Urine Protein Ur Glucose (Stick) Ur Ketones (Stick) Urine Blood Urine Nitrite Urine Bilirubin Urobilinogen Dipstick Urine Leukocytes Urine WBC (Auto) Urine RBC (Auto) U Epithel Cells (Auto) Urine Bacteria (Auto) Urine Crystals Small Round Cells Urine Casts Urine Yeast-like Cells Orders Category Date Time Status Cardiac Monitoring DIRECTED Care 04/18/19 20:01 Active IV Insertion ORDERED Care 04/18/19 20:01 Completed Notify MD of + Sepsis Screen NOW Care 04/18/19 20:01 Active Notify Physician As Ordered Care 04/18/19 20:01 Active Saline Loc NOW Care 04/18/19 18:47 Active CHEST-1 VIEW [RAD] Stat Exams 04/18/19 20:01 Completed BLOOD CULTURE [BLDCUL] Stat Lab 04/18/19 20:30 Results CBC WITH ELECTRONIC DIFF [HEME] Stat Lab 04/18/19 19:19 Completed CK PROFILE [SP CHEM] Stat Lab 04/18/19 19:19 Completed COMPREHENSIVE METABOLIC PANEL [CHEM] Stat Lab 04/18/19 19:19 Completed LACTATE, PLASMA [CHEM] Lab 04/18/19 20:30 Completed LACTATE, PLASMA [CHEM] Lab 04/18/19 23:15 Uncollected LACTATE, PLASMA [CHEM] Lab 04/19/19 02:15 Uncollected PROTIME WITH INR [COAG] Stat Lab 04/18/19 19:19 Completed PTT [COAG] Stat Lab 04/18/19 19:19 Completed TROPONIN T Stat Lab 04/18/19 19:19 Completed URINALYSIS W/POSS RFLX CULT [URINALYSIS] Stat Lab 04/18/19 17:48 Completed URINE CULTURE [RM] Routine Lab 04/18/19 18:12 Received URINE MANUAL MICROSCOPIC [URINALYSIS] Stat Lab 04/18/19 17:48 Completed 0.9% Sodium Chloride Inj [Ns] 1,000 ml Med 04/18/19 20:07 Discontinued IV 999 mls/hr CefTRIAXONE [Rocephin] 1 gm Med 04/18/19 20:07 Discontinued 0.9% Sodium Chloride Inj [Ns] 50 ml IV NOW Oxycodone/APAP 10 mg/325 mg [Percocet-10] Med 04/18/19 20:41 Discontinued 1 each PO NOW ONE Phenazopyridine [Pyridium] Med 04/18/19 18:47 Discontinued 200 mg PO NOW ONE Oxygen Device Stat Oth 04/18/19 20:01 Completed elevated WBC with urine positive for leuks, WBC and blood. not currently concerned for sepsis. Pt with normal lactate. pyelonephritis for source of infection. Result Diagrams: 04/18/19 19:19 04/18/19 19:19 - REASSESSMENT Reassessment #1 Time Reassessed: 20:41 Status: worsening (pt complaining of flank pain. will give pain meds) Reassessment #2 Time Reassessed: 22:23 Status: improving (pain improving. plan for admission) - XRAY 1 XRAY Study: Chest Impression: See EMR Report (INDICATION: possible sepsis TECHNIQUE: One view COMPARISON: 05/18/2017 FINDINGS: The right chest port is in stable position. The lungs are grossly clear. There is no discrete pleural fluid collection or pneumothorax. The cardiomediastinal silhouette and central vasculature are grossly unremarkable. IMPRESSION: No evidence of acute pathology by plain radiograph. Electronically signed by Cain Warren 04/18/2019 8:54 PM) - CONSULTS/PCP/HOSPITALIST Notification #1 *Consult/PCP/Hospitalist*: Dr. Rain Time Discussed: 22:21 Consult Disposition: Will see in ED Departure - Departure Date of Disposition Decision: 04/18/19 Time of Disposition Decision: 22:20 DIAGNOSIS: Pyelonephritis, Flank pain Disposition: ADMITTED INPATIENT 09 Certified Medical Emergency: Emergent Condition: Stable Referrals and Follow-Ups: None,PCP [Primary Care Provider] - - Critical Care Note This patient required my direct & personal management of CC.: No Attestation - Physician/ TACOS Attestation The physician spent face to face time with patient:: Yes Advanced Practice Provider documentation review:: Supervising physician onsite and consulted in the evaluation and care of this patient. The physician did have a face to face encounter with the patient.
[2019-04-18] MEDS ORDERED: PYRIDIUM PO ONE (18:47)
[2019-04-18 19:38] LABS: BASO# 0.02 X1000 (0.0-0.2); BASO% 0.1 % (0.0-0.8); EOS# 0.02 X1000 (0.0-0.7); EOS% 0.1 % (0.0-10.0); HEMATOCRIT 42.6 % (37.0-47.0); HEMOGLOBIN 13.4 g/dL (12.0-16.0); IMM GRAN# 0.11 X1000 (0.0-0.04); IMM GRAN% 0.5 % (0.0-0.5); LYMPH# 0.53 X1000 (1.2-3.4); LYMPH% 2.6 % (20.5-51.1); MCH 31.5 PG (27-31); MCHC 31.5 g/dL (33-37); MCV 100.2 FL (81-99); MONO# 0.42 X1000 (0.11-0.59); MPV 9.8 FL (7.4-10.4); NEUT# 19.58 X1000 (1.4-6.5); NEUT% 94.7 % (42.2-75.2); PLT 317 X1000 (130-400); RBC 4.25 XMIL (4.2-5.4); RDW 15.2 % (11.5-14.5); WBC 20.68 X1000 (4.8-10.8)
[2019-04-18 19:53] LABS: AGAP 14; ALBUMIN 3.9 g/dL (3.5-5.0); ALKALINE PHOSPHATASE 120 U/L (32-104); BUN 12 mg/dL (8-22); CALCIUM 9.1 mg/dL (8.8-10.2); CHLORIDE 97 mmol/L (98-107); COSMO 288; CREATININE 0.8 mg/dL (0.5-0.9); ESTIMATED GFR > 60; GLUCOSE 117 mg/dL (70-104); GOT 9 U/L (10-30); GPT 6 U/L (10-36); POTASSIUM 2.8 mmol/L (3.5-5.1); SODIUM 144 mmol/L (136-145); TCO2 33 mmol/L (25-35); TOTAL BILIRUBIN 0.72 mg/dL (0.20-1.00); TOTAL PROTEIN 7.8 g/dL (6.3-8.3)
[2019-04-18] MEDS ORDERED: ROCEPHIN 1 GM in NS 50 ML IV ONE (20:07)
[2019-04-18] MEDS ORDERED: NS 1,000 ML IV ONE (20:07)
[2019-04-18 20:23] LABS: INR 1.12; PROTIME 14.6 Seconds (11.0-16.0)
[2019-04-18 20:24] LABS: PTT 27.5 Seconds (22.3-41.8)
[2019-04-18] MEDS ORDERED: PERCOCET-10 PO ONE (20:41)
--- NOTE | 2019-04-18 20:56 | Diag Imaging Result Doc PS360 ---
EXAM: CHEST-1 VIEW INDICATION: possible sepsis TECHNIQUE: One view COMPARISON: 05/18/2017 FINDINGS: The right chest port is in stable position. The lungs are grossly clear. There is no discrete pleural fluid collection or pneumothorax. The cardiomediastinal silhouette and central vasculature are grossly unremarkable. IMPRESSION: No evidence of acute pathology by plain radiograph. Electronically signed by Cain Warren 04/18/2019 8:54 PM
[2019-04-18] MEDS ORDERED: KLOR-CON PO ONE (23:35)
[2019-04-19] MEDS ORDERED: TYLENOL PO PRN (00:19)
[2019-04-19] MEDS ORDERED: VANCOMYCIN 1 GM/NS 1 GM/250 ML IVPB IV ONE (00:19)
[2019-04-19] MEDS ORDERED: ZOFRAN IV PRN (00:19)
[2019-04-19] MEDS ORDERED: NS 1,000 ML IV SCH (00:19)
[2019-04-19] MEDS ORDERED: MORPHINE IR PO PRN (00:19)
[2019-04-19] MEDS ORDERED: VANCOMYCIN IV PER PHARMACY MISC SCH (00:19)
--- NOTE | 2019-04-19 00:19 | HISTORY AND PHYSICAL ---
PRIMARY CARE PHYSICIAN: Cecilio Paiz MD, in [place], [place]. REASON FOR ADMISSION: One-day history of spasms, urgency, frequency and flank pain. HISTORY OF PRESENT ILLNESS: Ms. Holli Lovett is an unfortunate 49-year-old woman with history of colon cancer, status post partial colon resection and bilateral J-stent for hydronephrosis secondary to intra-abdominal mass. She is currently receiving chemotherapy, and her last treatment was yesterday. She states that at around 4 a.m. yesterday the patient started having abdominal spasms, and this was followed a few hours later by urgency and frequency. No fever, chills, hematuria or vaginal discharge. Also developed at the same time lower flank pain which was nonradiating, but states that this pain is consistent with her prior episodes of urinary tract infections. The patient says she is scheduled next week for removal of kidney stents by Dr. Bob, and Dr. Bob will be consulted to see her for that reason. She denies any cardiorespiratory complaints. No altered bowel habits including diarrhea or constipation. She says she is still having residual lower abdominal pain in between bladder spasms, but the pain is localized and nonradiating. No specific aggravating or relieving factors. No focal neurological complaints, arthralgias or rash. No polyuria or polydipsia. REVIEW OF SYSTEMS: Twelve-system review was done. Pertinent findings per HPI. ALLERGIES: IV iron, dextran, tape, oxaliplatin. HOME MEDICATIONS: The patient is taking MS Contin 60 mg b.i.d., morphine IR 15 mg q.6 p.r.n. and Zofran 8 mg p.r.n. PAST SURGICAL HISTORY: In addition to the colon resection, ureteral stents. She has also had a MediPort placed. SOCIAL HISTORY: She does not smoke, drink or use illicit drugs. Lives with her father. FAMILY HISTORY: No family member with cancer, but positive history of heart disease and diabetes in first-degree relatives. LABORATORY DATA: Her white count is 21,000, hemoglobin and hematocrit 13 and 42, platelets 317,000 with 94% neutrophils. Potassium is 2.8, BUN is 12, creatinine 0.8, glucose 117. Troponin is negative. PTT is normal. Urinalysis too numerous to count. WBCs large leukocytes. DIAGNOSTIC DATA: Chest film: No acute findings noted. PHYSICAL EXAMINATION: VITAL SIGNS: Blood pressure is 131/84, heart rate 93, respirations 18, temperature is 98.1 degrees with 96% on room air. GENERAL: She is a middle-aged woman in no acute distress. Alert and oriented x3. Normal mood and affect. HEENT: Head is normocephalic, atraumatic. Eyes: PERRLA, EOMI. She is anicteric, not pale. ENT and oropharynx exam is grossly normal. NECK: Short and thick. No JVD or carotid bruit. No thyromegaly. CHEST: Clear when auscultated, with good air entry in both lung demarco. CARDIOVASCULAR: First and second sounds heard. No gallops, murmurs or rubs. Rhythm is regular. ABDOMEN: Slightly protuberant, soft. There is tenderness confined to the suprapubic area but no rebound or guarding. BACK: Positive left CVA tenderness. EXTREMITIES: Good distal pulse volumes, regular and symmetrical. No edema, clubbing or peripheral cyanosis. NEUROLOGICAL: No gross focal deficits. SKIN: Intact. No breakdown, lesion or erythema. MUSCULOSKELETAL: Exam is grossly normal. ASSESSMENT: 1. Acute pyelonephritis. 2. Recent history of colon cancer. 3. Hypokalemia. 4. Macrocytic anemia. PLAN: The patient will have potassium corrected. Check magnesium. Start the patient on Rocephin but we will also add on vancomycin based on the patient's prior history of recurrent enterococcal infections. Urine cultures will be followed and antibiotic therapy will be modified accordingly. We will consult Dr. Bob to see the patient, to decide if and when he wants to do stent removal. cc: MD Cecilio Adames
[2019-04-19] MEDS ORDERED: VANCOMYCIN 2,200 MG in NS 500 ML IV ONE (02:00)
[2019-04-19] MEDS: LOVENOX SUBQ SCH (02:00)
[2019-04-19 03:36] LABS: BASO# 0.01 X1000 (0.0-0.2); EOS# 0.02 X1000 (0.0-0.7); EOS% 0.1 % (0.0-10.0); HEMATOCRIT 38.9 % (37.0-47.0); HEMOGLOBIN 12.1 g/dL (12.0-16.0); IMM GRAN# 0.23 X1000 (0.0-0.04); IMM GRAN% 0.9 % (0.0-0.5); LYMPH# 0.57 X1000 (1.2-3.4); LYMPH% 2.3 % (20.5-51.1); MCH 31.6 PG (27-31); MCHC 31.1 g/dL (33-37); MCV 101.6 FL (81-99); MONO# 0.35 X1000 (0.11-0.59); MONO% 1.4 % (1.7-9.3); MPV 9.7 FL (7.4-10.4); NEUT# 23.08 X1000 (1.4-6.5); NEUT% 95.3 % (42.2-75.2); PLT 289 X1000 (130-400); RBC 3.83 XMIL (4.2-5.4); RDW 15.2 % (11.5-14.5); WBC 24.26 X1000 (4.8-10.8)
[2019-04-19 03:41] LABS: INR 1.22; PROTIME 15.6 Seconds (11.0-16.0); PTT 30.2 Seconds (22.3-41.8)
[2019-04-19 04:04] LABS: AGAP 13; ALB/GLOB RATIO 1.1; ALBUMIN 3.5 g/dL (3.5-5.0); ALKALINE PHOSPHATASE 111 U/L (32-104); BUN 12 mg/dL (8-22); CALCIUM 9.2 mg/dL (8.8-10.2); CHLORIDE 99 mmol/L (98-107); CK PROFILE 24 U/L (24-173); COSMO 287; CREATININE 0.9 mg/dL (0.5-0.9); ESTIMATED GFR > 60; GLUCOSE 98 mg/dL (70-104); GOT 9 U/L (10-30); GPT 5 U/L (10-36); SODIUM 144 mmol/L (136-145); TCO2 32 mmol/L (25-35); TOTAL BILIRUBIN 0.81 mg/dL (0.20-1.00); TOTAL PROTEIN 6.7 g/dL (6.3-8.3)
[2019-04-19 07:08] LABS: BASO# 0.01 X1000 (0.0-0.2); EOS# 0.04 X1000 (0.0-0.7); EOS% 0.2 % (0.0-10.0); IMM GRAN# 0.22 X1000 (0.0-0.04); IMM GRAN% 0.9 % (0.0-0.5); LYMPH# 0.42 X1000 (1.2-3.4); LYMPH% 1.7 % (20.5-51.1); MCH 31.8 PG (27-31); MCHC 31.6 g/dL (33-37); MCV 100.8 FL (81-99); MONO% 1.2 % (1.7-9.3); MPV 9.6 FL (7.4-10.4); NEUT# 23.45 X1000 (1.4-6.5); PLT 274 X1000 (130-400); RBC 3.77 XMIL (4.2-5.4); RDW 15.4 % (11.5-14.5); WBC 24.44 X1000 (4.8-10.8)
[2019-04-19 07:19] LABS: AGAP 13; BUN 11 mg/dL (8-22); CALCIUM 9.2 mg/dL (8.8-10.2); CHLORIDE 103 mmol/L (98-107); COSMO 290; CREATININE 0.9 mg/dL (0.5-0.9); ESTIMATED GFR > 60; GLUCOSE 93 mg/dL (70-104); POTASSIUM 2.7 mmol/L (3.5-5.1); SODIUM 146 mmol/L (136-145); TCO2 30 mmol/L (25-35)
[2019-04-19 07:44] LABS: MONO 2 % (1-9); SEGS 98 % (42-75)
--- NOTE | 2019-04-19 09:49 | Diag Imaging Result Doc PS360 ---
EXAM: CT ABD/PELVIS W/IV CONT ONLY INDICATION: UTI TECHNIQUE: This exam was performed using automated exposure control, adjustment of mA or kV according to patient size, and/or use of iterative reconstruction technique. COMPARISON: 12/11/2018 FINDINGS: The liver, gallbladder, spleen, pancreas, and adrenal glands are grossly unremarkable. There is a huge pelvic mass that is very heterogeneous containing cystic and solid components and areas of amorphous calcification. It extends into the lower abdomen. It is approximately stable in size as compared to the previous study. It measures 11.3 x 24.5 x 18.9 cm. There are bilateral ureteral stents that are in the same position as the previous study. However, there has been development of prominent bilateral hydronephrosis during the interval. There is a duplicated left renal collecting system. The upper pole moiety is dilated but this is stable as compared to the previous study. Note that the stent does not drain the upper pole moiety. The urinary bladder is partially distended and is grossly unremarkable, otherwise. Much of the sigmoid colon is obscured by the large pelvic mass. There is no evidence of bowel obstruction. There is body wall anasarca and there is a small amount of intra-abdominal fluid tracking along the paracolic gutters. There is nothing that would suggest local bony metastatic disease. IMPRESSION: 1.Huge pelvic mass that has changed very little in size when compared to the previous study. 2.Bilateral ureteral stents are in stable position. However, there has been normal development of severe hydronephrosis. 3.Body wall anasarca and a small amount of fluid in the paracolic gutters. Electronically signed by Cain Warren 04/19/2019 9:47 AM
--- NOTE | 2019-04-19 10:42 | PROGRESS NOTE ---
DATE: 04/19/2019 SUBJECTIVE: This morning, Ms. Lovett refers to be doing well. She still has some low abdominal discomfort, but her dysuric symptoms have significantly improved. OBJECTIVE: Vital signs: Blood pressure is 131/75, pulse of 83, respirations 17, temperature 98.1 degrees. General: Ms. Lovett is a 50-year-old female. She is in bed. She is not in any cardiopulmonary distress. HEENT: Mucosa is pink and moist. Anicteric. Acyanotic. Neck: Supple. Chest: Good air entry bilateral. There were no crepitations, no rhonchi. Cardiovascular: Regular rate and rhythm. No murmurs, no rubs, no gallops. There is a port on the right anterior chest wall. Gastrointestinal: Abdomen is soft. It is globally distended. There is a palpable mass that fills most of the entire lower abdomen all the way above the umbilicus. Extremities: No pedal edema. Central nervous system: Patient is awake, alert, and oriented. LABORATORY DATA: WBC is 24.44, hemoglobin is 12.0, platelet count of 274,000. There is 98% of bands on the peripheral smear. Chemistry is also reviewed. Sodium is slightly elevated at 146, potassium is 2.7. IMAGING STUDIES: 1. A chest x-ray shows no acute pathology. 2. A CT scan of the abdomen and pelvis shows a huge pelvic mass that has changed very little in size. There is also bilateral ureteral stents in stable position; however, there has been normal development of severe hydronephrosis. ASSESSMENT AND PLAN: 1. Suspected urinary tract infection. Culture is still pending. The patient is on broad- spectrum IV antibiotics. 2. Leukocytosis, most likely due to underlying infection. 3. Recurrent metastatic adenocarcinoma, KRAS mutated. The patient follows up with Dr. Hudson. She continues to be on chemotherapy. 4. Severely enlarged pelvic mass of unclear etiology. 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 The patient is pending evaluation at [facility] on May 01. 5. Macrocytosis. 6. Bilateral hydronephrosis in spite of bilateral ureteral stents. We will get Urology to evaluate Ms Lovett. Ms Lovett already had an appointment for stent removal and replacement on Monday. We will notify the urologist. cc: Burt Sarah MD
[2019-04-19] MEDS: MS CONTIN PO SCH ×2 (11:10→22:09)
[2019-04-19] MEDS: POTASSIUM CHLORIDE 20 MEQ/SWI 20 MEQ/100 ML IVPB IV SCH ×2 (13:42→17:31)
[2019-04-19] MEDS: D5 1/2 NS + KCL 20 MEQ 1,000 ML IV SCH (13:42)
[2019-04-19] MEDS ORDERED: VANCOMYCIN 1,750 MG in NS 250 ML IV SCH (20:00)
[2019-04-19] MEDS ORDERED: ROCEPHIN 1 GM in NS 50 ML IV SCH (20:00)
--- NOTE | 2019-04-19 20:32 | CONSULTATION ---
DATE OF CONSULTATION: 04/19/2019 ATTENDING/REFERRING PHYSICIAN: Hospitalist. CHIEF COMPLAINT: Abdominal pains. HISTORY OF PRESENT ILLNESS: This 49-year-old female has a history of colon cancer. She is status post sigmoid colon resection, and is on a chemotherapy because of metastasis to lymph nodes. Several years after the surgery, she was noted to have a large pelvic mass. This could have been coming from the uterus or ovary. The mass did cause bilateral hydroureteronephrosis and double-J stents were placed in December 2016. They have been changed every 6 months the last in October 2018. The patient states she developed increasing abdominal and lower back pain. She was seen in the Urology Clinic where a postvoid scan of the bladder revealed 900 mL. A Gonzalez catheter was placed and only 30 mL returned. A renal and bladder ultrasound revealed mild hydronephrosis with stents in good position. No change from previous exams and the large abdominal pelvic mass that was partly cystic. The patient continued with pain and was seen in the emergency room and admitted with a urinary tract infection. Her serum creatinine was 0.8, which means normal kidney function. The patient's CT scan of the abdomen and pelvis with IV contrast revealed the double-J stents in good position with mild hydronephrosis bilaterally and the completely obstructed upper-pole moiety on the left which has been there for many years. The patient was started on IV antibiotics, and states she feels better. She states she has her appetite back. PAST MEDICAL HISTORY: Hypertension but not taking medication for that. Chronic pain. HOME MEDICATIONS: MS Contin, morphine IR, Zofran. PAST SURGICAL HISTORY: [place] teeth extraction. Sigmoid colon resection. Chemo port placement and change. Cystoscopic exam with placement of double-J stents and multiple exchanges. SOCIAL HISTORY: No tobacco or alcohol use. ALLERGIES: She is allergic to iron dextran complex, adhesive tape, and oxaliplatin. PHYSICAL EXAMINATION: General: A mildly obese, age apparent, black female, oriented in all ways and cooperative. HEENT: Normal for age. Lungs: Clear. Cardiovascular: Regular rate and rhythm with the chemo port in place in the right upper chest. Abdomen: Mildly obese, soft, mildly tender in the suprapubic area but no guarding or rebound. Back: No CVA tenderness. Genitourinary: Deferred until surgery. Extremities: No clubbing, cyanosis, or edema. Neurologic: No focal deficits. CT scan with IV contrast only is as noted in the HPI which again demonstrates a very large heterogeneous mass that extends from the pelvis and up into the abdomen. CBC has a white count of 24.4, a hemoglobin of 12, hematocrit of 38 and platelets of 274,000 serum sodium is 146, potassium 2.7, chloride 103, bicarbonate 30, BUN 11, creatinine 0.9. Serum calcium is 9.2. A urinalysis had [id number]-count white cells, 10 to 20 red cells. Some epithelial cells. Urine culture preliminary results revealed a gram-negative pawel. Blood cultures are pending. IMPRESSION: 1. Colon cancer with lymph node metastasis currently on chemotherapy status post radiation therapy several years ago. 2. Large abdominal to pelvic area mass question of colon, uterine or ovarian. 3. Bilateral indwelling double-J stents. 4. Normal serum creatinine. 5. Abdominal and lower back pains probably due to the large mass. 6. Urinary tract infection. RECOMMENDATIONS: 1. We will change the double-J stents as scheduled on 04/24/2019. 2. Continue treatment of urinary tract infection. 3. The patient states she has an appointment with Surgical Oncology at [facility] in 2 weeks. Thank you for this consultation. cc: Cristhian Bob MD
[2019-04-20] MEDS: LOVENOX SUBQ SCH ×2 (00:59→23:54)
[2019-04-20] MEDS: D5 1/2 NS + KCL 20 MEQ 1,000 ML IV SCH ×2 (07:09→18:41)
[2019-04-20 07:44] LABS: HEMATOCRIT 32.7 % (37.0-47.0); HEMOGLOBIN 10.4 g/dL (12.0-16.0); MCH 32.7 PG (27-31); MCHC 31.8 g/dL (33-37); MCV 102.8 FL (81-99); MPV 9.9 FL (7.4-10.4); RBC 3.18 XMIL (4.2-5.4); RDW 15.7 % (11.5-14.5)
[2019-04-20 08:11] LABS: AGAP 10; ALBUMIN 3.2 g/dL (3.5-5.0); BUN 10 mg/dL (8-22); CALCIUM 9.1 mg/dL (8.8-10.2); CHLORIDE 102 mmol/L (98-107); COSMO 283; CREATININE 0.9 mg/dL (0.5-0.9); ESTIMATED GFR > 60; GLUCOSE 110 mg/dL (70-104); PHOSPHORUS 3.9 mg/dL (2.7-4.5); POTASSIUM 3.4 mmol/L (3.5-5.1); SODIUM 142 mmol/L (136-145); TCO2 30 mmol/L (25-35)
[2019-04-20 09:26] LABS: WBC 33.46 X1000 (4.8-10.8)
[2019-04-20 09:27] LABS: EOS 2 % (1-10); LYMPHS 1 % (21-51); MONO 2 % (1-9); PLT 258 X1000 (130-400); SEGS 95 % (42-75)
[2019-04-20 09:28] LABS: ANISOCYTOSIS 2+
[2019-04-20 09:29] LABS: LARGE PLATELETS OCCASIONAL
[2019-04-20] MEDS ORDERED: LEVAQUIN PO ONE (09:33)
[2019-04-20] MEDS ORDERED: PHENERGAN IV PRN (09:38)
[2019-04-20] MEDS ORDERED: SODIUM CHLORIDE 0.9% INJ PRN (09:38)
[2019-04-20] MEDS: MS CONTIN PO SCH ×2 (10:15→21:39)
[2019-04-20] MEDS: LEVAQUIN 750 MG/D5W 750 MG/150 ML IVPB IV SCH (10:17)
[2019-04-20] MEDS ORDERED: KLOR-CON PO ONE (10:18)
--- NOTE | 2019-04-20 10:59 | PROGRESS NOTE ---
DATE: 04/20/2019 SUBJECTIVE: This morning, Ms. Lovett referred to be doing fairly okay except for mild back pain. Initially, we thought we could discharge Ms Lovett today; however, her white cell count came back and it is higher than it has been since even admission. OBJECTIVE: Vital signs: Blood pressure is 117/62, pulse 84, respirations 20, temperature 98.2 degrees. The patient is saturating 93% on room air. General: Ms. Lovett is a 49-year-old female. She is in bed, no distress. HEENT: Mucosa is pink and moist. Anicteric, acyanotic. Neck: Supple. Chest: Good air entry bilateral. There were no crepitations, no rhonchi. Cardiovascular: Regular rate and rhythm. No murmurs, no rubs, no gallops. There is a port on the right anterior chest wall. Abdomen: Soft, is globally distended. There is a palpable mass that fills almost the entire lower abdomen up to above the umbilicus. Extremities: No pedal edema. Central nervous system: Patient is awake, alert, and oriented. Musculoskeletal: The patient has mild tenderness palpating the right costovertebral angle. LABORATORY DATA: 1. As I said, WBC has gone up to 33.46, hemoglobin is 10.4, platelet count of 258,000. There is 95% of bands. 2. Chemistry: Potassium is 3.4. Rest of chemistry is unremarkable. 3. The urine culture has grown Escherichia coli which is pansensitive. ASSESSMENT AND PLAN: 1. Escherichia coli urinary tract infection associated with bilateral hydronephrosis in spite of bilateral stent placement. The patient's white cell count has continued to go up. The E coli seems to be sensitive to the ceftriaxone; however, we will switch this to IV Levaquin and observe her in the hospital for a day or 2 before she is discharged. 2. Severely enlarged pelvic mass of unclear etiology. There is a suspicion that this could be an endometrial leiomyosarcoma or ovarian or colon mass. The patient is pending ADMINISTRATIVE TECHNICIAN Oncology evaluation at [facility]. 3. Recurrent metastatic adenocarcinoma, KRAS mutated. The patient follows up with Dr. Hudson and she is on chemotherapy. 4. Bilateral hydronephrosis in spite of bilateral ureteral stents. The patient has been evaluated by Dr. Bob. I have spoken with Dr. Bob myself and he continues to plan to exchange the stent on Monday. He is of the opinion that it not emergent to get it changed now. 5. Mild hypopotassemia. We will replace this. In general, I think Ms. Lovett is stable. Her vitals seem to be all under control. She is not febrile. However, her white cell count continues to go up. Unsure if it is related to the UTI or it is a reaction to the large pelvic mass. In either case, I think it is reasonable to change her antibiotics to Levaquin and monitor her white cell count for a day or 2 before she goes home. cc: Burt Sarah MD
[2019-04-21 07:37] LABS: BASO# 0.02 X1000 (0.0-0.2); BASO% 0.1 % (0.0-0.8); EOS# 0.14 X1000 (0.0-0.7); EOS% 0.6 % (0.0-10.0); HEMATOCRIT 31.1 % (37.0-47.0); HEMOGLOBIN 9.5 g/dL (12.0-16.0); IMM GRAN# 0.29 X1000 (0.0-0.04); IMM GRAN% 1.2 % (0.0-0.5); LYMPH# 0.65 X1000 (1.2-3.4); LYMPH% 2.7 % (20.5-51.1); MCH 31.7 PG (27-31); MCHC 30.5 g/dL (33-37); MCV 103.7 FL (81-99); MONO# 0.91 X1000 (0.11-0.59); MONO% 3.8 % (1.7-9.3); MPV 9.8 FL (7.4-10.4); NEUT# 22.17 X1000 (1.4-6.5); NEUT% 91.6 % (42.2-75.2); PLT 254 X1000 (130-400); RDW 15.8 % (11.5-14.5); WBC 24.18 X1000 (4.8-10.8)
[2019-04-21 08:10] LABS: AGAP 11; ALB/GLOB RATIO 0.9; ALBUMIN 3.1 g/dL (3.5-5.0); ALKALINE PHOSPHATASE 187 U/L (32-104); BUN 12 mg/dL (8-22); CALCIUM 9.6 mg/dL (8.8-10.2); CHLORIDE 102 mmol/L (98-107); COSMO 285; CREATININE 1.2 mg/dL (0.5-0.9); ESTIMATED GFR 58; GLUCOSE 95 mg/dL (70-104); GOT 6 U/L (10-30); GPT < 5 U/L (10-36); POTASSIUM 3.7 mmol/L (3.5-5.1); SODIUM 143 mmol/L (136-145); TCO2 30 mmol/L (25-35); TOTAL BILIRUBIN 0.23 mg/dL (0.20-1.00); TOTAL PROTEIN 6.7 g/dL (6.3-8.3)
[2019-04-21] MEDS: MS CONTIN PO SCH ×2 (08:27→21:04)
[2019-04-21] MEDS: LEVAQUIN 750 MG/D5W 750 MG/150 ML IVPB IV SCH ×2 (08:33→16:00)
[2019-04-21] MEDS ORDERED: LEVAQUIN PO SCH (09:00)
--- NOTE | 2019-04-21 12:24 | PROGRESS NOTE ---
DATE: 04/21/2019 SUBJECTIVE: This morning, Ms. Lovett refers to be doing remarkably better. The lower abdomen has significantly improved, and she denied any pain to the back. OBJECTIVE: Vital Signs: Blood pressure is 115/75, pulse of 105, respirations 20, temperature is 98.7 degrees, the patient was saturating 97% on room air. General: Ms. Lovett is a 49-year-old female. She was in bed. No distress. HEENT: Mucosa is pink and moist. Anicteric. Acyanotic. Neck: Supple. No JVD. No carotid bruit. Respiratory: There was good air entry bilaterally. No crepitations. No rhonchi. Cardiovascular: Regular rate and rhythm. No murmurs, no rubs, no gallops. There was a port on the right anterior chest wall. GI: Abdomen is soft, globally distended. There is a palpable mass that in the entire lower abdomen up to above the umbilicus. Extremities: No pedal edema. CHEMICAL PROCESS PROJECT ENGINEER: The patient is awake, alert, oriented. LABORATORY DATA: WBC is down to 24.18, hemoglobin is 9.5, platelet count of 258. Chemistry is also reviewed. Creatinine is 1.2. Rest of chemistry is unremarkable. Blood cultures have been 48 hours negative. ASSESSMENT: 1. Complicated Escherichia coli urinary tract infection with bilateral hydronephrosis in spite of bilateral ureteral stent. The patient is currently on Levaquin. Today is day 1. White cell count has improved some. 2. Severely enlarged pelvic mass of unclear etiology. The patient is pending Gynecology evaluation at [facility] later this month. 3. Recurrent metastatic adenocarcinoma, cross mutated. The patient follows up with Dr. Hudson. She is currently on chemotherapy. 4. Bilateral hydronephrosis in spite of bilateral ureteral stents. The patient has been evaluated by Dr. Bob. There is a plan for stent exchange on Monday. 5. Hypokalemia, improved. In general, I think Ms. Lovett is doing well. She has been switched to Levaquin since yesterday. White cell count is down to 24.18 today. We are going to repeat this tomorrow. If there is a constant trending down, I think we will be okay to discharge her tomorrow and let her do her urological intervention as an outpatient. cc: Burt Sarah MD MTDD
[2019-04-21] MEDS: LOVENOX SUBQ SCH (23:22)
[2019-04-22 07:37] LABS: HEMATOCRIT 35.1 % (37.0-47.0); HEMOGLOBIN 10.8 g/dL (12.0-16.0); MCH 32.3 PG (27-31); MCHC 30.8 g/dL (33-37); MCV 105.1 FL (81-99); RBC 3.34 XMIL (4.2-5.4); RDW 16.2 % (11.5-14.5); WBC 13.4 X1000 (4.8-10.8)
[2019-04-22] MEDS: MS CONTIN PO SCH (09:19)
[2019-04-22] MEDS: LEVAQUIN 750 MG/D5W 750 MG/150 ML IVPB IV SCH (09:19)
[2019-04-22 11:54] VITALS: BP 114/79
--- NOTE | 2019-04-23 09:30 | DISCHARGE SUMMARY ---
ADMISSION DATE: 04/19/2019 DISCHARGE DATE: 04/22/2019 DISPOSITION: Home. FOLLOW-UP: 1. Follow up with Dr. Bob. 2. The patient also has PROCESS CONTROL MANAGER/Oncology appointment at [facility] on 05/01/2019. CONSULTATION DURING THIS ADMISSION: Urology was consulted. The patient was seen by Dr. Bob. INVASIVE PROCEDURES DONE DURING THIS ADMISSION: None. IMAGING STUDIES OF SIGNIFICANCE: 1. Chest x-ray shows no evidence of acute pathology. 2. CT scan of the abdomen and pelvis showed huge pelvic mass that has changed very little in size. Bilateral stents in place. However, normal development of severe hydronephrosis. ADMISSION DIAGNOSES: 1. Acute pyelonephritis. 2. History of colon cancer. 3. Hypokalemia. 4. Macrocytic anemia. DIAGNOSES AT THE TIME OF DISCHARGE: 1. Complicated Escherichia coli urinary tract infection, with bilateral hydronephrosis in spite of bilateral ureteral stent. The patient was evaluated by Urology. They maintained the date for stent exchange to be 04/24/2019. 2. Severely enlarged pelvic mass of unclear etiology. The patient has an appointment with PROCESS CONTROL MANAGER/Oncology evaluation at [facility] on 05/01/2019. 3. Recurrent metastatic adenocarcinoma, KRAS mutated. The patient follows up with Dr. Hudson. 4. Bilateral hydronephrosis in spite of bilateral ureteral stents noted. 5. Electrolyte abnormality including hypokalemia, improved. 6. Leukocytosis secondary to underlying urinary tract infection, improved with antibiotic change. DISCHARGE MEDICATIONS: 1. Levofloxacin 500 p.o. daily. 2. Phenergan 25 mg p.o. q.6h p.r.n. 3. Continue with home medications for pain. PRESENTING COMPLAINT: One-day history of spasm, urinary frequency, and flank pain. HISTORY OF PRESENTING COMPLAINT: Ms. Lovett is a 49-year-old female, who has a history of recurrent colon cancer, follows up with Dr. Hudson. The patient has also been diagnosed with a large pelvic mass of unclear etiology, but which has been causing bilateral ureteral obstruction. A stent has been placed in and she is due for stent removal on 04/24/2019. Ms. Lovett came to the emergency room because of urinary frequency and flank pain. After presentation, she was evaluated and was thought to have UTI. She was admitted for further medical care. HOSPITAL COURSE: Ms. Lovett was started on IV antibiotics, specifically ceftriaxone. She remained fairly stable for the initial 2 days, however, her white cell count did not improve, at one point it actually had a worsened increase so antibiotics were changed. She was started on Levaquin and was observed 2 more days during the hospital course. The white cell count continued to drop from 33.4 at peak to 13.4 today. She remains afebrile. She has been evaluated by Urology and they do not think that there is any urgency to exchange the stent right away, so Ms. Lovett is deemed stable to be discharged, continue with the Levaquin, and follow up with Dr. Bob for ureteral bilateral stent exchange on Monday. She is also advised to continue to maintain her appointment with PROCESS CONTROL MANAGER/Oncology in [place] on 05/01/2019. All the discharge instructions have been discussed with Ms. Lovett and she voiced understanding. TIME SPENT: Time spent for discharge is 36 minutes. cc: Burt Sarah MD
== END 2019-04-22 12:25 | disposition home or self-care (01) | DRG 690 ==
LOC: ED 17:25 → SUATTDRO 04-19 01:40 → 4N 04-19 01:40
PROVIDERS: ATTEND Internal Medicine

== ENCOUNTER 2019-06-08 17:28 | Inpatient (IN) ==
[2019-06-08] MEDS ORDERED: MORPHINE IV ONE (18:12)
[2019-06-08] MEDS ORDERED: ZOFRAN IV ONE (18:12)
[2019-06-08 18:48] LABS: BASO# 0.05 X1000 (0.0-0.2); BASO% 0.1 % (0.0-0.8); EOS# 0.04 X1000 (0.0-0.7); EOS% 0.1 % (0.0-10.0); HEMATOCRIT 29.3 % (37.0-47.0); HEMOGLOBIN 9.1 g/dL (12.0-16.0); IMM GRAN# 0.81 X1000 (0.0-0.04); IMM GRAN% 2.4 % (0.0-0.5); LYMPH% 2.3 % (20.5-51.1); MCHC 31.1 g/dL (33-37); MCV 96.7 FL (81-99); MONO# 0.73 X1000 (0.11-0.59); MONO% 2.1 % (1.7-9.3); NEUT# 32.03 X1000 (1.4-6.5); PLT 562 X1000 (130-400); RBC 3.03 XMIL (4.2-5.4); RDW 16.9 % (11.5-14.5); WBC 34.46 X1000 (4.8-10.8)
[2019-06-08 19:07] LABS: AGAP 15; ALB/GLOB RATIO 0.6; ALKALINE PHOSPHATASE 298 U/L (32-104); BUN 26 mg/dL (8-22); CALCIUM 9.8 mg/dL (8.8-10.2); CHLORIDE 96 mmol/L (98-107); COSMO 277; CREATININE 0.9 mg/dL (0.5-0.9); ESTIMATED GFR > 60; GLUCOSE 112 mg/dL (70-104); GOT 8 U/L (10-30); GPT 7 U/L (10-36); SODIUM 136 mmol/L (136-145); TCO2 25 mmol/L (25-35); TOTAL BILIRUBIN 0.61 mg/dL (0.20-1.00); TOTAL PROTEIN 7.7 g/dL (6.3-8.3)
[2019-06-08 19:09] LABS: BANDS 3 % (0-1); EOS 3 % (1-10); LYMPHS 13 % (21-51); MONO 5 % (1-9); SEGS 75 % (42-75)
[2019-06-08] MEDS ORDERED: NS 1,000 ML IV ONE (20:14)
--- NOTE | 2019-06-08 21:32 | Diag Imaging Result Doc PS360 ---
EXAM: CT ABD/PELVIS W/IV CONT ONLY HISTORY: abdominal pain TECHNIQUE: CT abdomen and pelvis with intravenous contrast COMPARISON: 04/19/2019 FINDINGS: The gallbladder is moderately distended. No calcified stones or adjacent inflammation. No focal hepatic lesion. Spleen is not enlarged. Normal pancreas and adrenal glands. There are bilateral ureteral stents and there are small kidney cysts. Decreased hydronephrosis. Normal aorta. There is a very large mixed density pelvic mass measuring at least 17 x 11 x 14 cm. There is air within the left portion of the mass on the current exam and an area measuring 9 cm in diameter. Small amount of free fluid in the pelvis. Body wall edema is less pronounced. Postsurgical changes in lower lumbar spine. No enlarged lymph nodes. No bowel obstruction. IMPRESSION: 1.Large complex solid and cystic pelvic mass now with a portion containing air which may represent necrosis or communication with bowel. 2.Decreased body wall edema and decreased fluid in the abdomen and pelvis This exam was performed using automated exposure control, adjustment of mA or kV according to patient size, and/or use of iterative reconstruction technique. Electronically signed by Willie Boyd 06/08/2019 9:30 PM
--- NOTE | 2019-06-08 21:33 | Diag Imaging Result Doc PS360 ---
EXAM: CHEST-2 VIEWS HISTORY: tachycardia TECHNIQUE: Two views COMPARISON: 05/22/2019 FINDINGS: The lungs are well expanded. The heart is not enlarged. No change in the right jugular portacatheter. The vessels are not distended. There are no infiltrates. No pleural effusions. IMPRESSION: No acute abnormality. Electronically signed by Willie Boyd 06/08/2019 9:31 PM
--- NOTE | 2019-06-08 22:11 | PROVIDER DOCUMENTATION ---
This chart was entered by Jeffrey Wiley Scribe, acting as scribe for Yves Woo MD. HPI-Abdominal Pain/GI Problem - General Chief Complaint: Abdominal Pain Stated Complaint: ABD PAIN Time Seen by Provider: 06/08/19 17:48 Source: patient Allergies/Adverse Reactions: Patient Allergies Allergy/AdvReac Type Severity Reaction Status Date / Time iron dextran complex Allergy Mild ITCHING Verified 06/08/19 19:56 [From Infed] adhesive tape Allergy Unknown ITCHING Verified 06/08/19 19:56 oxaliplatin AdvReac RASH Verified 06/08/19 19:56 Home Medications: Home Medication List Medication Instructions Recorded Confirmed Last Taken Type Alprazolam 1 tab PO TID PRN 06/08/19 06/08/19 06/07/19 History Dexamethasone 4 mg PO BID 06/08/19 06/08/19 06/07/19 History Ibuprofen 800 mg PO TID PRN #20 tab 06/08/19 Unknown Rx Oxycodone HCl 1 tab PO BID PRN 06/08/19 06/08/19 06/07/19 History Oxycodone HCl/Acetaminophen 1 tab PO BID PRN 06/08/19 06/08/19 06/07/19 History [Oxycodone-Acetaminophen 5-325] - History of Present Illness-ABD Nature of Presenting Problems: Pt is a 49 y/o F presents to the ED with lower abdominal pain for 3 days. She reports hx of anorexic and colon cancer. Denies N/V/F. Abdominal Pain Onset Location: reports: suprapubic Pain Radiation: reports: no radiation Quality of Pain: reports: aching Severity in ED: reports: mild, moderate Onset/Duration: reports: 3 days ago Activities at Onset: reports: none Exposure to sick contacts?: No Modifying Factors: improves with: nothing Associated Symptoms: denies: back/neck pain, cough, diarrhea, fever/chills, nausea, shortness of breath, vomiting Review of Systems - Adult - REVIEW OF SYSTEMS - ADULT Constitutional: denies: chills, fever Eyes: reports: no symptoms reported Ears, Nose, Mouth & Throat: reports: no symptoms reported Cardiovascular: reports: no symptoms reported Respiratory: reports: no symptoms reported Gastrointestinal: reports: abdominal pain. denies: constipation, nausea, vomiting Genitourinary: reports: no symptoms reported Musculoskeletal: denies: back pain, neck pain Integumentary: reports: no symptoms reported Neurological: denies: dizziness/vertigo, headache/migraines Psychiatric: reports: no symptoms reported Endocrine: reports: no symptoms reported Hematologic/Lymphatic: reports: no symptoms reported Allergic/Immunologic: reports: no symptoms reported All Other Systems: Reviewed and Negative Past History - Adult - PAST MEDICAL HISTORY-ADULT Review of Records: reports: Old Records Reviewed, Nursing Assessment Review, M edications Reviewed Major Childhood Illnesses: reports: denies history Cardiovascular: reports: HTN Respiratory: reports: denies history Gastrointestinal: reports: cancer (colon) Obstetrical/Gynecological: reports: denies history Genitourinary: reports: denies history Musculoskeletal: reports: denies history Neurological: reports: denies history Endocrine/Immune: reports: denies history Other Conditions: reports: denies history - PRIOR SURGERIES/PROCEDURES Surgical/Procedure History: reports: other (colon resection). denies: recent surgery - IMMUNIZATION STATUS Childhood Immunizations: See Nurse Assessment Flu Vaccine: See Nurse Assessment - FAMILY HISTORY Family History: reviewed, not pertinent - SOCIAL HISTORY Smoking: non-smoker Substance Use: none/never Living Situation: family Physical Exam-General - PHYSICAL EXAM-ADULT Initial Vital Signs Reviewed: Yes - CONSTITUTIONAL General Appearance: appears well, alert, no apparent distress - EYES Eyes: PERRL/EOMI, pink conjunctivae - HEAD, EARS, NOSE, MOUTH & THROAT HENMT: TMs normal, pharynx normal. negative: moist mucous membranes (dry) - NECK Neck: non-tender, full range of motion, supple, normal inspection - RESPIRATORY Respiratory: lungs clear, normal breath sounds, no pleuratic chest pain, no respiratory distress, no accessory muscle use - CARDIOVASCULAR Cardiovascular: normal peripheral pulses, tachycardia - GASTROINTESTINAL (ABDOMEN) Abdominal Exam: normal bowel sounds, soft, tenderness (lower abdominal). negative: guarding, rebound - MUSCULOSKELETAL Back Exam: normal inspection, no CVA tenderness, no vertebral tenderness - SKIN Integumentary: normal color, normal turgor, warm/dry - NEUROLOGIC Neurologic: grossly normal, no motor/sensory deficits - PSYCHIATRIC Psych/Mental Status: normal mood/affect, normal thought content, normal thought process, oriented x 3 Progress - PLAN OF CARE/RESULTS Progress/Plan/Lab Results: Vital Signs - 8 hr 06/08/19 17:40 Temperature 97.7 F Pulse Rate 138 H Respiratory Rate 19 Blood Pressure 115/73 O2 Sat by Pulse Oximetry 95 Orders Category Date Time Status Saline Loc DIRECTED Care 06/08/19 18:10 Active NPO Diet 06/08/19 18:10 Active CBC WITH ELECTRONIC DIFF [HEME] Stat Lab 06/08/19 18:10 Uncollected COMPREHENSIVE METABOLIC PANEL [CHEM] Stat Lab 06/08/19 18:10 Uncollected URINALYSIS W/POSS RFLX CULT [URINALYSIS] Stat Lab 06/08/19 18:10 Uncollected Morphine Med 06/08/19 18:12 Discontinued 2 mg IV NOW ONE Ondansetron [Zofran] Med 06/08/19 18:12 Discontinued 4 mg IV NOW ONE Result Diagrams: 06/08/19 18:31 06/08/19 18:31 - REASSESSMENT Reassessment #1 Time Reassessed: 19:40 Status: unchanged (still abdominal pains) - EKG 1 Time of EKG reading by physician:: 17:52 EKG Read and Signed by:: Yves Woo EKG Interpretation (*Must complete 3 of following elements*): Abnormal Rate: 123 Rhythm: Sinus tach otherwise Normal ECG - XRAY 1 XRAY Study: Chest ( EXAM: CHEST-2 VIEWS HISTORY: tachycardia TECHNIQUE: Two views COMPARISON: 05/22/2019 FINDINGS: The lungs are well expanded. The heart is not enlarged. No change in the right jugular portacatheter. The vessels are not distended. There are no infiltrates. No pleural effusions. IMPRESSION: No acute abnormality. Electronically signed by Willie Boyd 06/08/2019 9:31 PM) - CT/MRI 1 MRI Study: Abdomen ( EXAM: CT ABD/PELVIS W/IV CONT ONLY HISTORY: abdominal pain TECHNIQUE: CT abdomen and pelvis with intravenous contrast COMPARISON: 04/19/2019 FINDINGS: The gallbladder is moderately distended. No calcified stones or adjacent inflammation. No focal hepatic lesion. Spleen is not enlarged. Normal pancreas and adrenal glands. There are bilateral ureteral stents and there are small kidney cysts. Decreased hydronephrosis. Normal aorta. There is a very large mixed density pelvic mass measuring at least 17 x 11 x 14 cm. There is air within the left portion of the mass on the current exam and an area measuring 9 cm in diameter. Small amount of free fluid in the pelvis. Body wall edema is less pronounced. Postsurgical changes in lower lumbar spine. No enlarged lymph nodes. No bowel obstruction. IMPRESSION: 1.Large complex solid and cystic pelvic mass now with a portion containing air which may represent necrosis or communication with bowel. 2.Decreased body wall edema and decreased fluid in the abdomen and pelvis This exam was performed using automated exposure control, adjustment of mA or kV according to patient size, and/or use of iterative reconstruction technique. Electronically signed by Willie Boyd 06/08/2019 9:30 PM) - CONSULTS/PCP/HOSPITALIST Notification #1 *Consult/PCP/Hospitalist*: Oncologist Dr leach Time Discussed: 00:05 Consult Disposition: other (discussed CT abdomen with him, he want me to discuss with surgery) #2 Consult: Srugeron Dr Vidales Time Discussed: 00:10 Consult Disposition: other (discussed CT abdomen with him, he wants hospitalist to admit and he will see patient later) #3 Consult: Hospitalist: Dr Duggan Time Discussed: 00:20 Consult Disposition: Admit (accepts admission) Departure - Departure Date of Disposition Decision: 06/08/19 Time of Disposition Decision: 22:11 DIAGNOSIS: Pelvic mass Abdominal pain Qualifiers: Abdominal location: lower abdomen, unspecified Qualified Code(s): R10.30 - Lower abdominal pain, unspecified Leucocytosis Qualifiers: Leukocytosis type: unspecified Qualified Code(s): D72.829 - Elevated white blood cell count, unspecified UTI (urinary tract infection) Qualifiers: Urinary tract infection type: site unspecified Hematuria presence: without hematuria Qualified Code(s): N39.0 - Urinary tract infection, site not specified Disposition: ADMITTED INPATIENT 09 Certified Medical Emergency: Emergent Condition: Stable - Critical Care Note This patient required my direct & personal management of CC.: No Attestation - Physician/ TACOS Attestation Patient care was provided by Advanced Practice Provider:: No The physician spent face to face time with patient:: Yes Advanced Practice Provider documentation review:: Supervising physician onsite and consulted in the evaluation and care of this patient. The physician did have a face to face encounter with the patient. This chart was documented by the indicated scribe, (Jeffrey Wiley Scribe) and accurately reflects the services I performed and decisions made by me, Yves Woo MD, as attested by the provider's signature.
[2019-06-08] MEDS ORDERED: MOTRIN PO ONE (22:26)
[2019-06-08 22:34] LABS: URINE SOURCE CLEAN CATCH
[2019-06-08 22:48] LABS: BILIRUBIN URINE NEGATIVE (NEGATIVE); BLOOD URINE MODERATE (NEGATIVE); COLOR YELLOW; GLUCOSE URINE NEGATIVE (NEGATIVE); KETONE URINE NEGATIVE (NEGATIVE); LEUKOCYTES URINE LARGE (NEGATIVE); NITRITE URINE NEGATIVE (NEGATIVE); PH URINE 6.5; PROTEIN URINE 50 mg/dL (NEGATIVE); SP GRAVITY URINE 1.028; TURBIDITY URINE CLEAR (CLEAR); UROBILINOGEN URINE NORMAL (NORMAL)
[2019-06-08 22:50] LABS: UR EPITHELIAL CELLS <10 /HPF (<10); URINE BACTERIA NEGATIVE /HPF; URINE RBC TNTC /HPF (<10); URINE WBC TNTC /HPF (<10)
[2019-06-08 23:32] LABS: URINE YEAST NONE SEEN
[2019-06-08 23:33] LABS: URINE CASTS NONE SEEN; URINE CRYSTALS NONE SEEN; URINE SMALL ROUND CELLS NONE SEEN
[2019-06-09] MEDS ORDERED: ZOSYN 4.5 GM in NS 100 ML IV ONE (00:36)
[2019-06-09] MEDS ORDERED: XANAX PO PRN (02:27)
[2019-06-09] MEDS ORDERED: ZOSYN 3.375 GM in NS 50 ML IV SCH (02:27)
[2019-06-09] MEDS: NS 1,000 ML IV SCH ×2 (03:19→13:44)
[2019-06-09] MEDS: MORPHINE IV PRN ×5 (03:55→22:54)
--- NOTE | 2019-06-09 04:08 | HISTORY AND PHYSICAL ---
PRIMARY CARE PHYSICIAN: Unknown CHIEF COMPLAINT: Abdominal pain. HISTORY OF PRESENTING ILLNESS: A 49-year-old female with a history of colon cancer with metastases to lymph nodes and also large abdominal/pelvic mass who had presented to emergency department with worsening abdominal pain. The patient states that it was getting more severe and her medicines were not helping. She was evaluated in the ED. She had imaging done which did show a large abdominal/pelvic mass with area of air with possible communication to the bowel. Her case was discussed with General Surgery who recommended admission for further management. At the time of my examination, patient denied any headache, fever, chills, chest pain, shortness of breath, but complained of abdominal pain. PAST MEDICAL HISTORY: Includes colon cancer with metastases to lymph nodes, hypertension, pelvic mass. PAST SURGICAL HISTORY: Colon resection, ureteral stents, Mediport, cystoscopy with double-J stent. ALLERGIES: IV iron, dextran, tape, oxaliplatin. CURRENT MEDICATIONS: Include alprazolam 0.25 mg p.o. t.i.d., dexamethasone 4 mg p.o. b.i.d., oxycodone 10 mg p.o. b.i.d. SOCIAL HISTORY: No history of smoking, alcohol or illicit drug use. FAMILY HISTORY: Positive for coronary artery in mother. REVIEW OF SYSTEMS: Fourteen point review of systems as listed in HPI. Other systems negative. PHYSICAL EXAMINATION: GENERAL: Cooperative, friendly female. She is resting more comfortably now. VITAL SIGNS: Temperature 97.7 degrees, pulse 138, respiration 19, blood pressure 115/73. HEENT: Atraumatic, normocephalic. Extraocular movements intact. PERRLA. NECK: No masses. CHEST: Clear to auscultation. CARDIOVASCULAR: Regular rate and rhythm. ABDOMEN: Soft. Suprapubic tenderness. EXTREMITIES: No edema. NEUROLOGIC: She is awake, alert, oriented x3. GENITOURINARY: No bladder distention but some mild tenderness. SKIN: Warm. LABORATORIES AND STUDIES: WBC 34.46, hemoglobin 9.1, hematocrit 29.3, platelets 562,000. Sodium 136, potassium 4.0, chloride 96, CO2 is 25, BUN is 26, creatinine 0.9, glucose 112. Abdominal and pelvic CT shows large complex solid and cystic pelvic mass now with portion containing air which may represent necrosis or communication with bowel. ASSESSMENT: A 49-year-old female with a history of colon cancer with lymph node metastasis, hypertension and pelvic mass who had presented to the emergency department with worsening abdominal pain. She was evaluated in the emergency department. She had a CT scan done which did show a large abdominal/pelvic mass containing air with possibility of communication to bowel. The case was discussed with General Surgery who recommended admission for further management. 1. Abdominal pain. 2. Abnormal CT showing large abdominal/pelvic mass containing air with possibility of communication to bowel. 3. Colon cancer with lymph node metastases. 4. Hypertension. 5. Suspected urinary tract infection. PLAN: 1. We will admit patient to medical floor with telemetry. 2. We will keep patient NPO. 3. Continue with gentle hydration, antiemetics and pain control. 4. We will consult General Surgery. 5. We will monitor blood pressure closely. 6. We will start patient on empiric antibiotics. 7. Put patient on DVT prophylaxis with SCDs. 8. We will continue to follow, and reassess and make further recommendation based on patient's clinical course. cc: Alek Duggan MD MTDD
[2019-06-09] MEDS: ZOSYN 3.375 GM in NS 50 ML IV SCH ×3 (06:17→19:46)
[2019-06-09] MEDS: DECADRON PO SCH ×2 (10:33→21:51)
[2019-06-09] MEDS: ZOFRAN IV PRN ×2 (13:48→22:53)
[2019-06-09] MEDS: PROTONIX PO SCH (21:50)
[2019-06-09] MEDS ORDERED: MELATONIN PO ONE (22:09)
[2019-06-10] MEDS: ZOSYN 3.375 GM in NS 50 ML IV SCH ×4 (01:30→18:40)
[2019-06-10] MEDS: NS 1,000 ML IV SCH (01:34)
[2019-06-10 07:10] LABS: BASO# 0.02 X1000 (0.0-0.2); BASO% 0.1 % (0.0-0.8); EOS# 0.08 X1000 (0.0-0.7); EOS% 0.4 % (0.0-10.0); HEMATOCRIT 26.3 % (37.0-47.0); IMM GRAN# 0.14 X1000 (0.0-0.04); IMM GRAN% 0.7 % (0.0-0.5); LYMPH# 0.89 X1000 (1.2-3.4); LYMPH% 4.8 % (20.5-51.1); MCH 30.1 PG (27-31); MCHC 30.4 g/dL (33-37); MCV 98.9 FL (81-99); MONO# 1.46 X1000 (0.11-0.59); MONO% 7.8 % (1.7-9.3); NEUT# 16.09 X1000 (1.4-6.5); NEUT% 86.2 % (42.2-75.2); PLT 453 X1000 (130-400); RBC 2.66 XMIL (4.2-5.4); RDW 17.1 % (11.5-14.5); WBC 18.68 X1000 (4.8-10.8)
--- NOTE | 2019-06-10 07:34 | EKG Report ---
Test Performed on : 06/08/2019 5:52:33 PM Test Reason : ED. NO EKG ORDER FOR MUSE Blood Pressure : / mmHG Vent. Rate : 123 BPM Atrial Rate : 123 BPM P-R Int : 114 ms QRS Dur : 078 ms QT Int : 280 ms P-R-T Axes : 063 049 029 degrees QTc Int : 400 ms Sinus tachycardia. Otherwise normal ECG When compared with ECG of 13-DEC-2018 17:05, Minimal criteria for Anterior infarct are no longer present Borderline criteria for Inferior infarct are no longer present Nonspecific T wave abnormality no longer evident in Anterior leads Unconfirmed Result
[2019-06-10 07:35] LABS: AGAP 9; BUN 14 mg/dL (8-22); CALCIUM 9.9 mg/dL (8.8-10.2); CHLORIDE 101 mmol/L (98-107); COSMO 274; CREATININE 1.1 mg/dL (0.5-0.9); ESTIMATED GFR > 60; GLUCOSE 96 mg/dL (70-104); POTASSIUM 4.5 mmol/L (3.5-5.1); SODIUM 137 mmol/L (136-145); TCO2 27 mmol/L (25-35)
[2019-06-10 07:54] LABS: BANDS 10 % (0-1); HYPOCHROM 1+; LYMPHS 4 % (21-51); MONO 4 % (1-9); SEGS 82 % (42-75)
[2019-06-10] MEDS: MORPHINE IV PRN ×4 (08:32→23:33)
[2019-06-10] MEDS: DECADRON PO SCH (08:32)
[2019-06-10] MEDS: ZOFRAN IV PRN ×3 (13:13→23:33)
--- NOTE | 2019-06-10 14:39 | PROGRESS NOTE ---
DATE: 06/10/2019 SUBJECTIVE: Today, Ms. Lovett refers to be doing well. No new complaints. She is still hurting in the lower abdomen. OBJECTIVE: Vital signs: Blood pressure is 132/75, pulse of 83, respiration is 16, temperature 97.9 degrees. General: Ms. Lovett is a 49-year-old, female. She is in bed. She looks chronically ill. HEENT: Mucosa is pink and moist. Anicteric. Acyanotic. Neck: Supple. Chest: Good air entry bilaterally. There were no crepitations, no rhonchi. Cardiovascular: Regular rate and rhythm. No murmurs, no rubs, no gallops. GI/Abdomen: Soft. Lower abdomen is tender. There is a palpable mass almost to the level of the umbilicus. Central nervous system: Patient is awake, alert and oriented. LABORATORY DATA: WBC is down to 18.68, hemoglobin is 8.0, platelet count of 452. Chemistry is also reviewed, unremarkable except for a creatinine of 1.1. So far, blood cultures and urine cultures have been negative. The patient is currently on Zosyn and Decadron. IMAGING STUDIES: Including a CT scan of the abdomen and pelvis which was done on admission showed a large complex solid and cystic pelvic mass now with portion containing air, which may represent necrosis or communication with bowel. There is also decreased body wall edema and decreased fluid in the abdomen and pelvis. ASSESSMENT: 1. Severely enlarged pelvic mass of unclear etiology. The patient has been evaluated at [facility], and she has been told that it could be more risky if they have to go in to do anything, and they recommend medical management. She follows up with Dr. Hudson. There is a plan for a biopsy on Monday at [facility]. 2. History of adenocarcinoma of the colon. 3. Bilateral hydronephrosis with bilateral ureteral stents in place. 4. Leukocytosis, most likely due to the necrosis of the pelvic mass. Blood cultures and urine culture so far have been negative. The patient is on antimicrobial therapy. 5. Normocytic anemia, most likely from chronic disease. We will follow up with hemoglobin and hematocrit. cc: Burt Sarah MD [facility]
[2019-06-10] MEDS ORDERED: ZOSYN ONE (14:52)
[2019-06-10] MEDS ORDERED: DECADRON PO SCH (15:00)
[2019-06-10] MEDS: PROTONIX PO SCH (21:40)
[2019-06-11] MEDS: ZOSYN 3.375 GM in NS 50 ML IV SCH ×3 (01:26→13:35)
[2019-06-11] MEDS: ZOFRAN IV PRN ×3 (03:44→13:39)
[2019-06-11] MEDS: MORPHINE IV PRN ×3 (03:45→13:38)
[2019-06-11 06:52] LABS: BASO# 0.01 X1000 (0.0-0.2); EOS# 0.01 X1000 (0.0-0.7); HEMATOCRIT 27.9 % (37.0-47.0); HEMOGLOBIN 8.6 g/dL (12.0-16.0); IMM GRAN# 0.26 X1000 (0.0-0.04); IMM GRAN% 1.2 % (0.0-0.5); LYMPH# 0.77 X1000 (1.2-3.4); LYMPH% 3.6 % (20.5-51.1); MCH 29.9 PG (27-31); MCHC 30.8 g/dL (33-37); MCV 96.9 FL (81-99); MONO# 2.51 X1000 (0.11-0.59); MONO% 11.8 % (1.7-9.3); MPV 9.1 FL (7.4-10.4); NEUT# 17.77 X1000 (1.4-6.5); NEUT% 83.4 % (42.2-75.2); PLT 449 X1000 (130-400); RBC 2.88 XMIL (4.2-5.4); RDW 16.8 % (11.5-14.5); WBC 21.33 X1000 (4.8-10.8)
[2019-06-11 07:20] LABS: BANDS 3 % (0-1); LYMPHS 3 % (21-51); MONO 9 % (1-9); SEGS 84 % (42-75)
[2019-06-11 07:30] LABS: AGAP 15; ALB/GLOB RATIO 0.7; ALKALINE PHOSPHATASE 296 U/L (32-104); BUN 12 mg/dL (8-22); CALCIUM 10.2 mg/dL (8.8-10.2); CHLORIDE 100 mmol/L (98-107); COSMO 278; CREATININE 0.9 mg/dL (0.5-0.9); ESTIMATED GFR > 60; GLUCOSE 113 mg/dL (70-104); GOT 8 U/L (10-30); GPT 6 U/L (10-36); POTASSIUM 4.6 mmol/L (3.5-5.1); SODIUM 139 mmol/L (136-145); TCO2 24 mmol/L (25-35); TOTAL BILIRUBIN 0.36 mg/dL (0.20-1.00); TOTAL PROTEIN 7.4 g/dL (6.3-8.3)
[2019-06-11] MEDS ORDERED: DECADRON PO SCH (09:00)
[2019-06-11 12:06] VITALS: BP 124/78
[2019-06-11] MEDS ORDERED: DURAGESIC 25 MICROGM/HR PATCH TD ONE (12:16)
--- NOTE | 2019-06-12 16:54 | DISCHARGE SUMMARY ---
ADMISSION DATE: 06/09/2019 DISCHARGE DATE: 06/11/2019 DISPOSITION: Home. FOLLOWUP: 1. Carlos Hudson MD 2. Raghu Portillo MD CONSULTATIONS DURING THIS ADMISSION: Heme-Onc was consulted. Patient was seen by Dr. Hudson's team. INVASIVE PROCEDURES DONE DURING THIS ADMISSION: None. IMAGING STUDIES OF SIGNIFICANCE: 1. An initial CT scan of the chest shows no acute abnormality. 2. A CT scan of the abdomen and pelvis did show a large complex solid and cystic pelvic mass now with portion containing air, which may represent necrosis or communication with bowel. There was decrease of the body wall edema and decreased fluid in the abdomen and pelvis. ADMISSION DIAGNOSES: 1. Abdominal pain. 2. Colon cancer with lymph node metastasis. 3. Hypertension. 4. Suspected urinary tract infection. DIAGNOSES AT THE TIME OF DISCHARGE: 1. Intractable abdominal pain. 2. Severely enlarged pelvic mass of unclear etiology. Patient has been evaluated in [facility], has been told not to be a surgical candidate. She is still pending evaluation in [facility] for possible biopsy, which she has been scheduled to be done tomorrow. 3. History of adenocarcinoma of colon. 4. Bilateral hydronephrosis with bilateral ureteral stents in place. 5. Leukocytosis secondary to necrosis of the pelvic mass. Blood cultures and urine cultures have been negative. 6. Normocytic anemia secondary to anemia of chronic disease. 7. Protein calorie malnutrition with wasting syndrome due to underlying malignancy. PRESENTING COMPLAINT: Abdominal pain. HISTORY OF PRESENTING COMPLAINT: Ms. Lovett is a 49-year-old very unfortunate female who is known to have a stage III colon cancer that normally she follows up with Dr. Hudson. She is also found to have this enlarged large pelvic mass which we all think is a malignancy but has never been able to biopsy. She was sent on her last admission over here in April of this year to be evaluated at [facility], which Ms. Lovett followed up accordingly, and she was told at that time she was not a surgical candidate, was sent back to follow up with Dr. Hudson. Unfortunately, Ms. Lovett continues to be hurting a lot so she came to the emergency room where she was evaluated and admitted for intractable abdominal pain. A CT scan of the abdomen and pelvis did reveal a pelvic mass that seems to have some necrosis in the middle. HOSPITAL COURSE: Ms. Lovett was admitted, was started on IV pain management, which she did tolerate well. Throughout her hospital course, she improved on pain management, and she was seen today by Dr. Hudson's team, and they decided to put her on fentanyl patch, and they were okay for the patient to be discharged since she already has an appointment for an outpatient biopsy to be done in [facility]. Ms. Lovett is now clinically stable. Pain is better controlled. We think she is okay for discharge to be followed up tomorrow for her biopsy to be done in [facility]. Unfortunately, it appears Ms. Lovett has a very poor prognosis. She has a pelvic mass, which seems to be beyond surgical removal, and she does not seems to be responding well to adjuvant therapy. She is aware at this point, and she refers to wanting to pursue aggressive treatment and having a second opinion. I did discuss this point of care with the oncology team, and they have written up a prescription for a fentanyl patch and have Ms. Lovett discharged, and they will follow up with her on outpatient. I think Ms. Lovett is clinically stable. She seems to have an incurable disease. She is going to have a biopsy done tomorrow at [facility] and will follow up with Dr. Hudson. At the time of her discharge, her blood pressure blood was 124/78, pulse of 104, respirations 18, temperature 98.5 degrees and patient was saturating 95% on room air. Ms. Lovett is being discharged in stable condition. Time spent for discharge is 35 minutes. DISCHARGE MEDICATIONS: Include: 1. Dexamethasone 4 mg b.i.d. 2. Oxycodone 1 tablet 10 mg b.i.d. 3. Alprazolam 0.25 three times per day p.r.n. 4. Pantoprazole 40 mg p.o. at bedtime. 5. MiraLAX 17 g p.o. daily. Movantik 12.5 p.o. daily. cc: Burt Sarah MD
--- NOTE | 2019-06-18 16:11 | HEMO/ONC CONSULTATION ---
DATE: 06/10/2019 ADMITTING PHYSICIAN: Dr. Man. REQUESTING PHYSICIAN: Dr. Man. We appreciate this consult. CHIEF COMPLAINT: Recurrent metastatic adenocarcinoma. HISTORY OF PRESENT ILLNESS: Ms Holli Lovett is a 49-year-old female well known to Dr. Hudson with a history of recurrent metastatic adenocarcinoma. She is currently on FOLFOX 6 and is status post cycle 12, cycle 13 was due on 06/17/2019. The patient does have a large complex solid cystic pelvic mass that is unresectable. She underwent recent biopsy, and since that time has complained of severe pain in her abdomen. The patient has had several admissions recently for intractable abdominal pain, and severe nausea and vomiting. The patient has lost a significant amount of weight greater than 100 pounds since her first diagnosis. We are consulted as the patient is well known to us. PAST MEDICAL HISTORY: 1. Hypertension. 2. Recurrent metastatic adenocarcinoma of the colon. 3. Intractable pain. PAST SURGICAL HISTORY: 1. Colon resection. 2. Ureteral stent placement. 3. Port placement. 4. Cystoscopy with double-J stent placement. SOCIAL HISTORY: The patient does not use tobacco, alcohol or illicit drugs. FAMILY HISTORY: Negative for any hematologic or oncologic disease. MEDICATIONS ON ADMISSION: 1. Oxycodone. 2. Fentanyl patch. 3. Alprazolam. 4. Dexamethasone. ALLERGIES: IV iron, dextran, tape and oxaliplatin. REVIEW OF SYSTEMS: A 14 point review of systems was obtained, and is negative except for mentioned in HPI. PHYSICAL EXAMINATION: Ms. Lovett is a pleasant 49-year-old female who is cachectic, and appears to be in considerable pain. Vital Signs: Temperature 97.9 degrees, blood pressure 132/75, heart rate 86, respirations 16, and O2 saturation 100% on room air. HEENT: Normocephalic, atraumatic. Mucous membranes are pale and moist. Sclerae anicteric. Extraocular movements intact. Neck: Supple. Lungs: Clear to auscultation bilaterally. Chest expansion is equal bilaterally. CV: S1, S2 is heard. No murmurs, rubs or gallops. Abdomen: Soft. Tender to palpation especially in the left lower quadrant. Bowel sounds are decreased throughout. Positive rebound and guarding noted. Extremities: Without clubbing, cyanosis, or edema. Dermatologic: No rashes, bruises or lesions. Neurologic: The patient is awake, alert, and oriented x3. She has no focal deficits. LABORATORY DATA: Hemoglobin 8.0, hematocrit 26.3, white blood cell count 18.68, and platelets 453,000. Sodium 137, potassium 4.5, chloride 101, CO2 is 27, BUN 14, creatinine 1.1, glucose 96, and calcium is 9.9. Urine and blood cultures are negative at 48 hours. IMAGING STUDIES: Chest x-ray reveals no acute abnormality. CT of the abdomen and pelvis reveals large complex solid cystic pelvic mass with air questionably related to necrosis or bowel communication. ASSESSMENT AND PLAN: 1. Recurrent metastatic adenocarcinoma status post cycle 12 of FOLFOX 6. Cycle 13 was due on 06/17/2019. We will hold treatment at this time. 2. Abdominal pain with positive rebound and guarding, questionably related to fistula versus bowel perforation. Surgery was consulted, however, the patient is not a surgical candidate at this time. Would continue current pain regimen as prescribed. 3. Questionable urinary tract infection. Cultures are currently negative. 4. Hypertension, currently stable with a blood pressure of 132/75. 5. We will follow along with you, and make further recommendations pending outcomes. The above reflects the history, exam, assessment, and plan of Dr. Hudson. Dictated by DENA Love for Carlos Hudson MD cc: DENA Love MD
== END 2019-06-11 15:13 | disposition home or self-care (01) | DRG 392 ==
LOC: ED 17:28 → 4N 06-09 01:58 → SUATTDRO 06-09 01:58
PROVIDERS: ATTEND Internal Medicine

== ENCOUNTER 2019-06-13 10:10 | Inpatient (IN) ==
--- NOTE | 2019-06-13 10:51 | EKG Report ---
Test Performed on : 06/13/2019 10:33:07 AM Test Reason : Tachycardia at 133 Blood Pressure : / mmHG Vent. Rate : 132 BPM Atrial Rate : 132 BPM P-R Int : 114 ms QRS Dur : 070 ms QT Int : 298 ms P-R-T Axes : 053 -02 059 degrees QTc Int : 441 ms Sinus tachycardia. Possible Left atrial enlargement Left ventricular hypertrophy Nonspecific ST and T wave abnormality Abnormal ECG When compared with ECG of 08-JUN-2019 17:52, (Unconfirmed) No significant change was found Unconfirmed Result
[2019-06-13 11:44] LABS: BASO# 0.02 X1000 (0.0-0.2); BASO% 0.1 % (0.0-0.8); EOS# 0.01 X1000 (0.0-0.7); EOS% 0.1 % (0.0-10.0); HEMATOCRIT 34.6 % (37.0-47.0); HEMOGLOBIN 10.7 g/dL (12.0-16.0); IMM GRAN# 0.08 X1000 (0.0-0.04); IMM GRAN% 0.5 % (0.0-0.5); LYMPH# 0.82 X1000 (1.2-3.4); LYMPH% 4.8 % (20.5-51.1); MCHC 30.9 g/dL (33-37); MCV 96.9 FL (81-99); MONO# 1.93 X1000 (0.11-0.59); MONO% 11.2 % (1.7-9.3); MPV 9.1 FL (7.4-10.4); NEUT# 14.35 X1000 (1.4-6.5); NEUT% 83.3 % (42.2-75.2); PLT 578 X1000 (130-400); RBC 3.57 XMIL (4.2-5.4); RDW 17.7 % (11.5-14.5); WBC 17.21 X1000 (4.8-10.8)
[2019-06-13] MEDS ORDERED: PEPCID IV ONE (11:47)
[2019-06-13] MEDS ORDERED: MORPHINE IV ONE (11:47)
[2019-06-13] MEDS ORDERED: VANCOMYCIN 1 GM/NS 1 GM/250 ML IVPB IV ONE (11:47)
[2019-06-13] MEDS ORDERED: ZOFRAN IV ONE (11:47)
[2019-06-13] MEDS ORDERED: NS 1,000 ML IV ONE ×2 (11:47)
[2019-06-13] MEDS ORDERED: SODIUM CHLORIDE 0.9% INJ ONE (11:48)
[2019-06-13 12:31] LABS: ALB/GLOB RATIO 0.7; ALBUMIN 3.4 g/dL (3.5-5.0); CALCIUM 10.9 mg/dL (8.8-10.2); CREATININE 1.4 mg/dL (0.5-0.9); POTASSIUM 4.1 mmol/L (3.5-5.1); TOTAL BILIRUBIN 0.53 mg/dL (0.20-1.00); TOTAL PROTEIN 8.4 g/dL (6.3-8.3)
[2019-06-13 12:52] LABS: INR 1.3; PROTIME 16.4 Seconds (11.0-16.0)
[2019-06-13 12:53] LABS: PTT 43.8 Seconds (22.3-41.8)
--- NOTE | 2019-06-13 13:23 | PROVIDER DOCUMENTATION ---
This chart was entered by Deonna Gustafson Scribe, acting as scribe for Amol Vinson MD. HPI-Abdominal Pain/GI Problem - General Chief Complaint: Abdominal Pain Stated Complaint: ABD PAIN Time Seen by Provider: 06/13/19 11:32 Source: patient Allergies/Adverse Reactions: Patient Allergies Allergy/AdvReac Type Severity Reaction Status Date / Time iron dextran complex Allergy Mild ITCHING Verified 06/13/19 10:32 [From Infed] adhesive tape Allergy Unknown ITCHING Verified 06/13/19 10:32 oxaliplatin AdvReac RASH Verified 06/13/19 10:32 Home Medications: Home Medication List Medication Instructions Recorded Confirmed Last Taken Type Alprazolam 1 tab PO TID PRN 06/08/19 06/13/19 06/07/19 History Dexamethasone 4 mg PO BID 06/08/19 06/13/19 06/07/19 History Oxycodone HCl 1 tab PO BID PRN 06/08/19 06/13/19 06/07/19 History Oxycodone HCl/Acetaminophen 1 tab PO BID PRN 06/08/19 06/13/19 06/07/19 History [Oxycodone-Acetaminophen 5-325] Pantoprazole [Protonix] 40 mg PO QHS 06/09/19 06/13/19 06/07/19 History Naloxegol Oxalate [Movantik] 12.5 mg PO DAILY #60 tab 06/11/19 06/13/19 Unknown Rx Polyethylene Glycol 3350 [Miralax] 17 gm PO DAILY #60 powd.pack 06/11/19 06/13/19 Unknown Rx - History of Present Illness-ABD Nature of Presenting Problems: Patient is a 49 year old female who presents with generalized abdominal pain. States nausea and vomiting with abdominal pain that started this morning. Reports she was seen at [place] yesterday for a biopsy and drainage of mass present around colon. States having IV antibiotics (invanz) this morning at [facility]. History of colon resection in 2013. Abdominal Pain Onset Location: reports: generalized abdomen Pain Radiation: reports: no radiation Quality of Pain: reports: aching Severity in ED: reports: mild Onset/Duration: reports: this morning Timing: reports: still present Activities at Onset: reports: light activity Associated Symptoms: reports: nausea, vomiting Last BM: 3 days ago Emesis Description: reports: other (green) Bruising or Bleeding Gums?: No Similar Symptoms Previously?: Yes Recently seen or treated by another doctor?: Yes Review of Systems - Adult - REVIEW OF SYSTEMS - ADULT Constitutional: reports: no symptoms reported Eyes: reports: no symptoms reported Ears, Nose, Mouth & Throat: reports: no symptoms reported Cardiovascular: reports: no symptoms reported Respiratory: reports: no symptoms reported Gastrointestinal: reports: see HPI, abdominal pain (generalized), nausea, vomiting. denies: rectal bleeding Genitourinary: reports: no symptoms reported Musculoskeletal: reports: no symptoms reported Integumentary: reports: no symptoms reported Neurological: reports: no symptoms reported Psychiatric: reports: no symptoms reported Endocrine: reports: no symptoms reported Hematologic/Lymphatic: reports: no symptoms reported Allergic/Immunologic: reports: no symptoms reported All Other Systems: Reviewed and Negative Past History - Adult - PAST MEDICAL HISTORY-ADULT Review of Records: reports: Old Records Reviewed, Nursing Assessment Review, Medications Reviewed, Social history reviewed & non-contributory. Major Childhood Illnesses: reports: denies history Cardiovascular: reports: HTN Respiratory: reports: denies history Gastrointestinal: reports: cancer (colon) Obstetrical/Gynecological: reports: denies history Genitourinary: reports: kidney disease Musculoskeletal: reports: denies history Neurological: reports: denies history Endocrine/Immune: reports: denies history Other Conditions: reports: denies history - PRIOR SURGERIES/PROCEDURES Surgical/Procedure History: reports: bowel surgery, other (colon resection). denies: recent surgery - IMMUNIZATION STATUS Childhood Immunizations: See Nurse Assessment Flu Vaccine: See Nurse Assessment - FAMILY HISTORY Family History: reviewed, not pertinent - SOCIAL HISTORY Smoking: denies Substance Use: denies Living Situation: family Physical Exam-General - PHYSICAL EXAM-ADULT Initial Vital Signs Reviewed: Yes - CONSTITUTIONAL General Appearance: alert, no apparent distress. negative: lethargic - HEAD, EARS, NOSE, MOUTH & THROAT HENMT: normocephalic/atraumatic, moist mucous membranes. negative: angioedema - RESPIRATORY Respiratory: chest non-tender, lungs clear, normal breath sounds, other (port to right side chest). negative: crackles, rhonchi - CARDIOVASCULAR Cardiovascular: tachycardia. negative: regular rate, rhythm, systolic murmur - GASTROINTESTINAL (ABDOMEN) Abdominal Exam: soft, guarding, tenderness (diffuse.). negative: rebound - MUSCULOSKELETAL Extremity: non-tender, normal inspection. negative: pedal edema - SKIN Integumentary: normal color, normal turgor, warm/dry. negative: diaphoresis - NEUROLOGIC Neurologic: grossly normal. negative: aphasia, facial droop - PSYCHIATRIC Psych/Mental Status: normal mood/affect, oriented x 3. negative: anxious Progress - PLAN OF CARE/RESULTS Progress/Plan/Lab Results: Vital Signs - 8 hr 06/13/19 10:22 06/13/19 10:23 06/13/19 10:28 Temperature 97.5 F L Pulse Rate 133 H 132 H 133 H Respiratory Rate 7 L 15 Blood Pressure 143/98 143/98 143/98 O2 Sat by Pulse Oximetry 98 96 06/13/19 11:00 06/13/19 12:00 06/13/19 12:06 Temperature Pulse Rate 127 H 131 H 133 H Respiratory Rate 19 19 20 Blood Pressure 137/96 O2 Sat by Pulse Oximetry 97 96 95 Laboratory Results - last 24 hr 06/13/19 06/13/19 06/13/19 11:31 11:31 11:31 WBC 17.21 H RBC 3.57 L Hgb 10.7 L Hct 34.6 L MCV 96.9 MCH 30.0 MCHC 30.9 L RDW Std Deviation 17.7 H Plt Count 578 H MPV 9.1 Immature Gran % (Auto) 0.5 Neut % (Auto) 83.3 H Lymph % (Auto) 4.8 L Archuleta % (Auto) 11.2 H Eos % (Auto) 0.1 Baso % (Auto) 0.1 Immature Gran # (Auto) 0.08 H Neut # (Auto) 14.35 H Lymph # (Auto) 0.82 L Archuleta # (Auto) 1.93 H Eos # (Auto) 0.01 Baso # (Auto) 0.02 Sodium 140 Potassium 4.1 Chloride 96 L Carbon Dioxide 23 L Anion Gap 21 BUN 27 H Creatinine 1.4 H Estimated GFR/1.73 m2 48 BUN/Creatinine Ratio 19 Glucose 139 H Calculated Osmolality 287 Calcium 10.9 H Total Bilirubin 0.53 AST 14 ALT 8 L Alkaline Phosphatase 432 H Troponin T < 0.010 Total Protein 8.4 H Albumin 3.4 L Globulin 5.0 Albumin/Globulin Ratio 0.7 Lipase 9 L Orders Category Date Time Status Cardiac Monitoring DIRECTED Care 06/13/19 11:46 Active Notify Physician As Ordered Care 06/13/19 11:46 Active Nursing- Obtain EKG once Care 06/13/19 11:18 Completed Saline Loc NOW Care 06/13/19 11:18 Active Palliative Care Consult [OM.CSS] Routine Cons 06/13/19 12:01 Active Clear Liquid Diet Diet 06/13/19 11:48 Active CHEST-1 VIEW [RAD] Stat Exams 06/13/19 11:46 Ordered BLOOD CULTURE [BLDCUL] Stat Lab 06/13/19 12:37 Ordered CBC WITH ELECTRONIC DIFF [HEME] Stat Lab 06/13/19 11:31 Completed CK PROFILE [SP CHEM] Stat Lab 06/13/19 11:31 Received COMPREHENSIVE METABOLIC PANEL [CHEM] Stat Lab 06/13/19 11:31 Completed LACTATE, PLASMA [CHEM] Lab 06/13/19 12:00 Uncollected LACTATE, PLASMA [CHEM] Lab 06/13/19 15:00 Uncollected LACTATE, PLASMA [CHEM] Lab 06/13/19 18:00 Uncollected LIPASE [CHEM] Stat Lab 06/13/19 11:31 Completed PROTIME WITH INR [COAG] Stat Lab 06/13/19 11:31 Received PTT [COAG] Stat Lab 06/13/19 11:31 Received TROPONIN T Stat Lab 06/13/19 11:31 Completed TYPE & SCREEN [BBK] Stat Lab 06/13/19 12:37 Ordered URINALYSIS W/POSS RFLX CULT [URINALYSIS] Stat Lab 06/13/19 11:19 Uncollected 0.9% Sodium Chloride Inj [Ns] 1,000 ml Med 06/13/19 11:47 Active IV 999 mls/hr 0.9% Sodium Chloride Inj [Ns] 1,000 ml Med 06/13/19 11:47 Active IV 999 mls/hr Famotidine [Pepcid] Med 06/13/19 11:47 Discontinued 20 mg IV NOW ONE Morphine Med 06/13/19 11:47 Discontinued 4 mg IV NOW ONE Ondansetron [Zofran] Med 06/13/19 11:47 Discontinued 4 mg IV NOW ONE Sodium Chloride 0.9% Med 06/13/19 11:48 Discontinued 5 - 10 ml INJ NOW ONE Vancomycin 1 gm/Ns Med 06/13/19 11:47 Active 1 gm in 250 ml IV NOW Oxygen Device Stat Oth 06/13/19 11:46 Active EKG [EKG] Stat Ther 06/13/19 10:32 Draft EKG [EKG] Stat Ther 06/13/19 11:18 Ordered Result Diagrams: 06/13/19 11:31 06/13/19 11:31 - REASSESSMENT Reassessment #1 Time Reassessed: 13:19 Status: improving (Multiple talks at bedside with patient and family RE DNR status, hospice, palliative care. Patient and do not want CPR, intubation, defib, pressors etc. They want pain meds, fluids and antibiotics. I spoke with Drs. Coppola and Elke, as well as hospitalist team, palliative care nurse and hospice about this patient. Old chart reviewed. Patient has severe sepsis, but will possibly this hospitalization and patient is aware. Levophed will not be started.) - CONSULTS/PCP/HOSPITALIST Notification #1 *Consult/PCP/Hospitalist*: Dr. Portillo Time Discussed: 11:44 Reason/Comments: Dr. Vinson consulted with Dr. Portillo about patient Consult Disposition: other (Dr. Portillo states patient has necrotic inoperative colon cancer and peritonitis.) #2 Consult: Dr. Hudson Time Discussed: 11:45 Reason/Comments: Dr. Vinson consulted with Dr. Hudson about patient. Consult Disposition: other (Dr. Hudson states do not scan patient's abdomen. Order chest xray. Pain management. IV fluid and antibiotics.) #3 Consult: DENA Simpson Time Discussed: 13:22 Consult Disposition: Will see in ED, Admit Departure - Departure Date of Disposition Decision: 06/13/19 Time of Disposition Decision: 13:22 DIAGNOSIS: Gram-negative sepsis with organ dysfunction, History of malignant neoplasm of colon Abdominal pain Qualifiers: Abdominal location: left lower quadrant Qualified Code(s): R10.32 - Left lower quadrant pain Disposition: ADMITTED INPATIENT 09 Certified Medical Emergency: Emergent Condition: Critical Referrals and Follow-Ups: SHAY AUGUSTIN [Primary Care Provider] - - Critical Care Note This patient required my direct & personal management of CC.: Yes Total Time (mins): 45 Critical Care Statement: This patient required my direct personal management to treat or rule out processes, the absence of which, could potentiallly result in sudden, clinically significant life or limb threatening deterioration. Attestation - Physician/ TACOS Attestation Patient care was provided by Advanced Practice Provider:: No The physician spent face to face time with patient:: Yes Advanced Practice Provider documentation review:: Supervising physician onsite and consulted in the evaluation and care of this patient. The physician did have a face to face encounter with the patient. This chart was documented by the indicated scribe, (Deonna Gustafson Scribe) and accurately reflects the services I performed and decisions made by me, Amol Vinson MD, as attested by the provider's signature.
--- NOTE | 2019-06-13 13:55 | Diag Imaging Result Doc PS360 ---
EXAM: CHEST-1 VIEW HISTORY: sepsuis, cancer TECHNIQUE: Single view COMPARISON: 06/08/2019 FINDINGS: The lungs are well expanded. The heart is not enlarged. The vessels are not distended. There are no infiltrates. No effusion identified. No change in the right jugular portacatheter. No lung nodules identified. IMPRESSION: Stable chest Electronically signed by Willie Boyd 06/13/2019 1:53 PM
--- NOTE | 2019-06-13 14:08 | HISTORY AND PHYSICAL ---
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 Hudson. She was just here about a week ago, and admitted on 06/09/2019. This is a 49-year-old with a history of colon cancer with metastasis to lymph nodes, and also large abdominal and pelvic mass for which she presented to the emergency room department back in June with worsening abdominal pain. She presents now at the same time with worsening abdominal pain and increased nausea. I think she had a biopsy done yesterday. She states that she has continued to lose weight and poor appetite. Case was discussed with General Surgery. PAST MEDICAL HISTORY: 1. Colon cancer with metastasis to lymph nodes. 2. Hypertension. 3. Pelvic mass. PAST SURGICAL HISTORY: Colon resection and ureteral stents. She had a Mediport placed, cystoscopy with double-J stent. ALLERGIES: IV iron, dextran, tape, and oxaliplatin. CURRENT MEDICATIONS: I believe she is on alprazolam and dexamethasone, and taking oxycodone at home. SOCIAL HISTORY: No history of smoking, alcohol or illicit drugs. FAMILY HISTORY: Positive for coronary artery disease in mother. REVIEW OF SYSTEMS: Continues to lose weight and poor appetite. She has had diaphoresis, but no recorded fever.HEENT: She does not report any change in visual or hearing acuity. Neck: No neck pain or increased adenopathy. Respiratory: No increased work of breathing or dyspnea. Cardiovascular: No chest pain or tachy palpitation. GI: Colon cancer with nausea. : No gross hematuria. Endocrinologic/Hematologic: No significant history. PHYSICAL EXAMINATION: VITAL SIGNS: Weight 147 pounds. Height 5 feet 2 inches, temperature 97.5 degrees, pulse 130, respirations 20, and blood pressure 137/96. HEENT: Pupils are equal and round. CVP less than 6 cm. LUNGS: Clear in all lung demarco. CARDIOVASCULAR: Regular rhythm and rate without murmur or S3. ABDOMEN: Nondistended, but just generally uncomfortable. SKIN: Warm and dry. No pedal edema. NECK: Supple without adenopathy or thyromegaly. LABORATORY: Sodium 140, potassium 4.1, chloride 96, BUN 27, creatinine 1.4, and blood sugar 139. Liver functions unremarkable. Troponin less than 0.01. Albumin 3.4. Lipase was 9. ProTime is 16.4, INR is 1.30. White count 37927, hematocrit 34, and platelet count is 578,000. ASSESSMENT AND PLAN: 1. Increased nausea and metastatic colon cancer. I do not know with the results of the biopsy from Monday were. Dr. Hudson's is following. We will put her in for IV fluids and antiemetics. 2. History of hypertension. 3. She has had ureteral I think obstruction and infection, and has stents placed. I am not sure what the status of those are. We will see when the stents were placed. We will put her on antibiotics to cover for gram-negative organisms. We will check a urine for culture. 4. Anorexia, poor appetite, and weight loss so severe protein calorie malnutrition. Aware. I think they are talking to her about what plan of care, and what they want to do. The patient will have those discussions I believe with Dr. Hudson. cc: Malachi Man MD
--- NOTE | 2019-06-13 14:17 | ED EKG INTERP ---
EKG Interpretation - EKG Time of EKG reading by physician:: 11:00 EKG Read and Signed by:: Amol Vinson EKG Interpretation (*Must complete 3 of following elements*): Abnormal Rate: 132 Rhythm: sinus tach, [place]: normal QRS: other (high voltage) [place] Interval: normal ST Wave: non-specific ST changes Attestation - Physician/ TACOS Attestation Patient care was provided by Advanced Practice Provider:: No The physician spent face to face time with patient:: Yes Advanced Practice Provider documentation review:: Supervising physician onsite and consulted in the evaluation and care of this patient. The physician did have a face to face encounter with the patient.
[2019-06-13] MEDS ORDERED: VANCOMYCIN IV PER PHARMACY MISC SCH (14:44)
[2019-06-13] MEDS ORDERED: SODIUM CHLORIDE 0.9% INJ SCH (14:44)
[2019-06-13] MEDS: NS 1,000 ML IV SCH (15:41)
[2019-06-13] MEDS: PHENERGAN IV PRN (16:02)
[2019-06-13] MEDS: SODIUM CHLORIDE 0.9% INJ PRN (16:02)
[2019-06-13] MEDS: ATIVAN IV PRN (16:15)
[2019-06-13] MEDS: DILAUDID IV PRN (16:16)
[2019-06-13 23:58] LABS: URINE SOURCE CLEAN CATCH
[2019-06-14] LABS: BILIRUBIN URINE NEGATIVE (NEGATIVE); BLOOD URINE MODERATE (NEGATIVE); COLOR YELLOW; GLUCOSE URINE NEGATIVE (NEGATIVE); KETONE URINE NEGATIVE (NEGATIVE); LEUKOCYTES URINE LARGE (NEGATIVE); NITRITE URINE NEGATIVE (NEGATIVE); PROTEIN URINE 100 mg/dL (NEGATIVE); SP GRAVITY URINE 1.021; TURBIDITY URINE HAZY (CLEAR); UROBILINOGEN URINE 3 mg/dL (NORMAL)
[2019-06-14] MEDS: PEPCID IV SCH ×2 (00:18→13:17)
[2019-06-14] MEDS: NS 1,000 ML IV SCH ×4 (00:18→17:38)
[2019-06-14] MEDS: SODIUM CHLORIDE 0.9% INJ PRN ×2 (00:19→02:13)
[2019-06-14 00:25] LABS: UR EPITHELIAL CELLS <10 /HPF (<10); URINE BACTERIA NEGATIVE /HPF; URINE RBC <10 /HPF (<10); URINE WBC TNTC /HPF (<10)
[2019-06-14 00:35] LABS: URINE CASTS NONE SEEN; URINE CRYSTALS NONE SEEN; URINE SMALL ROUND CELLS NONE SEEN; URINE TRICHOMONAS PRESENT; URINE YEAST NONE SEEN
[2019-06-14] MEDS: DILAUDID IV PRN ×5 (02:11→20:43)
[2019-06-14] MEDS: PHENERGAN IV PRN ×2 (02:12→12:51)
[2019-06-14] MEDS: ZOFRAN IV PRN ×3 (06:44→20:49)
[2019-06-14] MEDS ORDERED: INVANZ 1 GM/NS 1 GM/50 ML IVPB IV SCH (08:00)
[2019-06-14 08:11] LABS: BASO# 0.01 X1000 (0.0-0.2); BASO% 0.1 % (0.0-0.8); EOS# 0.12 X1000 (0.0-0.7); EOS% 0.8 % (0.0-10.0); HEMATOCRIT 29.1 % (37.0-47.0); HEMOGLOBIN 8.8 g/dL (12.0-16.0); IMM GRAN# 0.07 X1000 (0.0-0.04); IMM GRAN% 0.5 % (0.0-0.5); LYMPH% 4.1 % (20.5-51.1); MCH 29.9 PG (27-31); MCHC 30.2 g/dL (33-37); MONO# 1.16 X1000 (0.11-0.59); MONO% 7.9 % (1.7-9.3); MPV 9.2 FL (7.4-10.4); NEUT# 12.71 X1000 (1.4-6.5); NEUT% 86.6 % (42.2-75.2); PLT 449 X1000 (130-400); RBC 2.94 XMIL (4.2-5.4); RDW 17.7 % (11.5-14.5); WBC 14.67 X1000 (4.8-10.8)
[2019-06-14 08:28] LABS: ALB/GLOB RATIO 0.8; ALBUMIN 3.1 g/dL (3.5-5.0); CALCIUM 9.4 mg/dL (8.8-10.2); CREATININE 1.2 mg/dL (0.5-0.9); TOTAL BILIRUBIN 0.46 mg/dL (0.20-1.00)
[2019-06-14 08:34] LABS: BANDS 5 % (0-1); HYPOCHROM 1+; LYMPHS 4 % (21-51); SEGS 86 % (42-75)
[2019-06-14] MEDS: ZOSYN 3.375 GM in NS 50 ML IV SCH ×3 (09:49→20:49)
--- NOTE | 2019-06-14 18:22 | INFECTIOUS DISEASE CONSULT REP ---
DATE: 06/14/2019 CONCLUSION: Patient has a pelvic abscess. The patient had fluid drained from her pelvis at [facility] and it is growing Streptococcus plus other organisms, which have not yet been identified. RECOMMENDATIONS: I have discontinued ertapenem and I placed the patient on Zosyn. Some of the side effects of the antibiotic including rash and diarrhea have been explained the patient who agrees with treatment. DISCUSSION: The patient has been having abdominal pain in the past month. She also is anorectic. Two days ago she was sent to [facility] to have fluid drained from her pelvis which was done and the result is as mentioned above, namely that Streptococcus was found in the fluid plus other organisms are present but have not yet been identified. The patient's CBC shows a white count of 14,670, hemoglobin 8.8, and platelet count of 449,000. Creatinine is 1.2. GFR is 58. Alkaline phosphatase is 369. Urinalysis showed white cells but no bacteria. Blood and urine cultures are pending. As mentioned above, the culture done at [facility] is a Streptococcus plus other organisms, which have not yet been identified. PAST MEDICAL HISTORY/REVIEW OF SYSTEMS: Eyes and Ears: She can hear and see okay. She does not have any white patches on her tongue. Neck: She is not complaining of any neck pain or stiffness. Respiratory: No cough or shortness of breath. Cardiac: No chest pain or palpitations. GI: See present illness. Genitourinary: No dysuria or flank pain. Neurologic: No seizures. The patient has generalized weakness. Integument: No rash. 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 She has also had ureteral stents placed. MEDICAL DISEASES: Positive for metastatic colon cancer which is being treated with chemotherapy and radiation therapy. INFECTIOUS DISEASE HISTORY: Negative for pneumonia and UTI. FAMILY HISTORY: Positive for diabetes mellitus, hypertension, myocardial infarction, stroke and cancer. SOCIAL HISTORY[place] lives with her father. She does not have any pets. She does not smoke cigarettes, drink alcoholic beverages or abuse drugs.Integument: No rash noted. PHYSICAL EXAMINATION: Vital Signs: Temperature is 98.5 degrees, pulse 122, respirations 12, blood pressure is 100/69. Patient is 5 feet 2 inches tall, weighs 147 pounds. General: This is an ill-appearing middle-aged female. She is in no acute distress. Head/eyes/ears/nose/throat: She can hear my spoken words and see near objects. No drainage coming from the nose or ears. There were no white patches on her tongue. Neck: No meningismus. Lungs: Clear to auscultation. Cardiovascular: Regular heart rate. Abdomen: Soft and it was not tender to light palpation. Thorax: Patient has a Port-A-Cath present on the right side. The site is not erythematous or tender. Neurologic: The patient is lethargic. She does answer my questions and she did move her extremities to request. There is no tremor. Thank you for the consult. cc: Bryon Arias MD
--- NOTE | 2019-06-14 21:52 | PROGRESS NOTE ---
DATE: 06/14/2019 SUBJECTIVE: This patient is lying comfortably in bed. She is complaining of abdominal pain. She is feeling a little bit better compared with yesterday, though. She is not having nausea or vomiting today. PHYSICAL EXAMINATION: Vital signs: Temperature 97.5 degrees, pulse 113, respiratory rate 12, blood pressure 136/81, oxygen saturation 100% on room air. HEENT: Head normocephalic, no trauma. PERRLA. Neck: Supple. No JVD. No masses. Central trachea. Chest: Clear to auscultation. Some crepitus at the bases. Abdomen: Generalized tenderness to palpation. Positive bowel sounds, but a little bit decreased. Neurological: The patient is awake, alert. She is oriented. She is following commands. LABORATORY: WBC 14.6, hemoglobin 8.8, hematocrit 29.1, platelets 449,000. Sodium 143, potassium 4, chloride 106, bicarbonate 25, BUN 26, creatinine 1.2, glucose 128, calcium 9.4, alkaline phosphatase 369, albumin 3.1. ASSESSMENT AND PLAN: 1. Metastatic colon cancer with abdominal pain, nausea, and vomiting. As per the patient, she vomited today in the morning. There is a possibility of perforation in her bowel, and no surgery can be done at this time. I discussed the case with Dr. Hudson who recommended hospice for this patient. 2. History of hypertension. Aware. 3. Ureteral stent placed, as per the admitting physician. We are checking for urine culture and blood culture as well, but at this point I do not think we are going to do any kind of invasive procedure. 4. Anorexia, poor appetite and weight loss, and also severe protein-calorie malnutrition. Aware. 5. We have placed a consult for Palliative Care. I discussed the case with Dr. Hudson and he has recommended hospice for this patient. cc: Milad Rose MD
[2019-06-14] MEDS ORDERED: VANCOMYCIN 1,150 MG in NS 250 ML IV SCH (23:00)
[2019-06-15] MEDS: DILAUDID IV PRN ×6 (00:05→21:33)
[2019-06-15] MEDS: PEPCID IV SCH ×2 (00:07→12:20)
[2019-06-15] MEDS: ZOSYN 3.375 GM in NS 50 ML IV SCH ×4 (04:24→21:34)
[2019-06-15] MEDS: NS 1,000 ML IV SCH ×4 (04:24→21:45)
[2019-06-15] MEDS: ZOFRAN IV PRN (04:25)
[2019-06-15 08:22] LABS: BASO# 0.01 X1000 (0.0-0.2); BASO% 0.1 % (0.0-0.8); EOS# 0.12 X1000 (0.0-0.7); EOS% 0.9 % (0.0-10.0); HEMATOCRIT 30.3 % (37.0-47.0); IMM GRAN# 0.07 X1000 (0.0-0.04); IMM GRAN% 0.5 % (0.0-0.5); LYMPH# 0.63 X1000 (1.2-3.4); LYMPH% 4.9 % (20.5-51.1); MCH 29.7 PG (27-31); MCHC 29.7 g/dL (33-37); MONO# 0.92 X1000 (0.11-0.59); MONO% 7.2 % (1.7-9.3); NEUT# 11.06 X1000 (1.4-6.5); NEUT% 86.4 % (42.2-75.2); PLT 469 X1000 (130-400); RBC 3.03 XMIL (4.2-5.4); RDW 17.9 % (11.5-14.5); WBC 12.81 X1000 (4.8-10.8)
[2019-06-15] MEDS: PHENERGAN IV PRN ×4 (08:26→21:36)
[2019-06-15 08:41] LABS: CALCIUM 9.4 mg/dL (8.8-10.2); CREATININE 1.2 mg/dL (0.5-0.9); POTASSIUM 3.8 mmol/L (3.5-5.1)
--- NOTE | 2019-06-15 22:18 | PROGRESS NOTE ---
DATE: 06/15/2019 SUBJECTIVE: The patient is resting comfortably in bed. She is still complaining of some abdominal pain but I think is better compared with yesterday. She is not having nausea and vomiting. She is having bowel movement. OBJECTIVE: Vital Signs: Temperature 98.7 degrees, pulse 105, respiratory rate 18, blood pressure 125/87, oxygen saturation 98 on room air. HEENT: Head normocephalic, no trauma. PERRLA. Neck: Supple. No JVD. No masses. Central trachea. Chest: Clear to auscultation. Some crepitus at the bases. Abdomen: Generalized tenderness to palpation and it is distended, positive bowel sounds. Extremities: No clubbing. No cyanosis. Neurological: The patient is awake, alert. She is oriented. She is following commands. LABORATORY: WBC 12.8, hemoglobin 9, hematocrit 30.3, platelets 469,000. Sodium 141, potassium 3.8, chloride 105, bicarbonate 21, BUN 18, creatinine 1.2, glucose 110, calcium 9.4. ASSESSMENT AND PLAN: 1. Metastatic colon cancer with abdominal pain, nausea and vomiting. There is also a possibility of perforation. I discussed the case with Dr. Hudson who has recommended and agreed with hospice. 2. History of hypertension. Aware. 3. Ureteral stent placed as per the admitting physician. For now, we will monitor. 4. Abdominal pain due to #1 continue to try to control her pain. We have placed a consult for palliative care and this patient should be going home with hospice. 5. Anorexia, poor appetite and weight loss. Aware. cc: Milad Rose MD
[2019-06-16] MEDS: DILAUDID IV PRN ×7 (01:24→22:36)
[2019-06-16] MEDS: PHENERGAN IV PRN ×4 (01:25→19:37)
[2019-06-16] MEDS: PEPCID IV SCH ×2 (01:45→13:37)
[2019-06-16] MEDS: ZOSYN 3.375 GM in NS 50 ML IV SCH ×4 (05:07→20:29)
[2019-06-16] MEDS: NS 1,000 ML IV SCH ×2 (06:26→14:03)
[2019-06-16] MEDS: ZOFRAN IV PRN ×2 (09:16→15:28)
[2019-06-16] MEDS: VANCOMYCIN 1,250 MG in NS 250 ML IV SCH (13:41)
--- NOTE | 2019-06-16 14:56 | INFECTIOUS DISEASE PROGRESS NO ---
DATE: 06/16/2019 The patient is going home with hospice for comfort care only. Dr. Ruelas is going to take over the prescribing of the patient's antibiotics. I am signing off of the patient's case. cc: Bryon Arias MD
--- NOTE | 2019-06-16 15:05 | PROGRESS NOTE ---
DATE: 06/16/2019 SUBJECTIVE: Patient is resting comfortably in bed. No acute events overnight. The plan is to discharge this patient home with hospice. OBJECTIVE: Vital Signs: Temperature 97.5 degrees, pulse 102, respiratory rate 18, blood pressure 135/84, oxygen saturation 95% on room air. HEENT: Head normocephalic. No trauma. PERRLA. Neck: Supple. No JVD. No masses. Central trachea. Chest: Clear to auscultation. Some crepitus at the bases. Abdomen: Soft. Generalized tenderness to palpation and is distended. Positive bowel sounds. Multiple scars. Extremities: No edema, no clubbing, no cyanosis. Neurological Examination: The patient is awake and alert. She is oriented x3. No focal deficits but generalized weakness. Laboratory: No lab work done today. ASSESSMENT AND PLAN: 1. Metastatic colon cancer with abdominal pain, nausea, and vomiting. There is a possibility of bowel perforation. I discussed the case with Dr. Hudson has recommended hospice. 2. History of hypertension. Aware. 3. Ureteral stent placed, as per the admitting physician. For now, we will monitor. 4. Abdominal pain due to #1. 5. Anorexia, poor appetite, and weight loss. As per #1 as well. cc: Milad Rose MD
[2019-06-16] MEDS: ATIVAN IV PRN (15:39)
[2019-06-16] MEDS ORDERED: OXY IR PO PRN (20:26)
[2019-06-17] MEDS: PEPCID IV SCH ×2 (00:01→11:39)
[2019-06-17] MEDS: NS 1,000 ML IV SCH ×3 (00:01→16:51)
[2019-06-17] MEDS: DILAUDID IV PRN ×6 (02:09→16:51)
[2019-06-17] MEDS: ZOFRAN IV PRN ×3 (02:11→14:30)
[2019-06-17] MEDS: ZOSYN 3.375 GM in NS 50 ML IV SCH ×3 (04:09→16:51)
[2019-06-17] MEDS: PHENERGAN IV PRN ×3 (07:53→16:52)
[2019-06-17 13:41] VITALS: BP 145/93
[2019-06-17] MEDS: VANCOMYCIN 1,250 MG in NS 250 ML IV SCH (14:20)
--- NOTE | 2019-06-18 20:31 | DISCHARGE SUMMARY ---
ADMISSION DATE: 06/13/2019 DISCHARGE DATE: 06/17/2019 DISCHARGE DIAGNOSES: 1. Metastatic colon cancer with abdominal pain, nausea and vomiting and possible bowel perforation. 2. History of hypertension. 3. History of ureteral stent placed. 4. Abdominal pain due to #1. 5. Anorexia, poor appetite and weight loss. PROCEDURE PERFORMED: Chest x-ray dated 06/13/2019. Impression: Stable chest. HISTORY OF PRESENT ILLNESS: A 49-year-old female followed by Dr. Hudson, admitted on 06/13/2019. She has a history of metastatic colon cancer, hypertension, and has presented with abdominal pain, nausea, vomiting, and weight loss. I had a conversation with Dr. Hudson and he states that this patient probably has a perforation going on, and she actually sought some evaluation at [facility], but they did not want to do any kind of surgery. She was evaluated and placed on antibiotics here by Infectious Disease Department, but further discussion with the family and the patient, as well as Dr. Hudson, the decision of sending this patient home with hospice was made. This patient's pain was controlled. She was not having nausea, vomiting and actually she was tolerating a little bit of p.o. ranging from 25% to 75%. She has been evaluated by hospice and she is being discharged today. She seems to be stable. I will continue with antibiotics to complete at least 14 days. PHYSICAL EXAMINATION: Vital signs: Temperature 97.8 degrees, pulse 110, respiratory rate 18, blood pressure 145/93, oxygen saturation 96 on room air. General: Chronically ill 49-year-old female. HEENT: Head normocephalic, no trauma. PERRLA. Neck: Supple. No JVD. No masses. Central trachea. Chest: Clear to auscultation. Some crepitus at the bases. Abdomen: Soft. Generalized tenderness to palpation and the abdomen is distended. She has some multiple scars. Extremities: No edema, no clubbing, no cyanosis. Neurological: The patient is awake, alert, she is oriented x3. She does have generalized weakness. DISCHARGE MEDICATIONS: Alprazolam 1 tablet p.o. t.i.d. as needed, Augmentin 875/125 mg tablet b.i.d., dexamethasone 40 mg p.o. b.i.d., Movantik 12.5 mg p.o. daily, oxycodone 1 tablet p.o. b.i.d. as needed, [place] 1 tablet p.o. b.i.d. as needed 5/325, pantoprazole 40 mg p.o. at bedtime and MiraLAX 17 g p.o. daily. The rest of the medications will be provided by the hospice company. cc: Milad Rose MD
== END 2019-06-17 17:28 | disposition hospice, home (50) | DRG 374 ==
LOC: ED 10:10 → 3N 14:07 → SUATTDRO 14:07
PROVIDERS: ATTEND Internal Medicine